=== PATIENT | female | born 1940 | race Caucasian/White ===

== ENCOUNTER 2018-01-15 11:00 | Outpatient (RCR) | payer MEDICARE, BC, MEDICAID, SELFPAY | END 2018-01-15 16:00 | disposition home or self-care (01) | LOC: PT 11:00 | PROVIDERS: Visit Provider Neurological Surgery | DX: M99.83 Other biomechanical lesions of lumbar region (principal); R53.1 Weakness | CPT/HCPCS: 97110; 97164 ==

== ENCOUNTER 2019-03-10 09:00 | Outpatient (RCR) | payer MEDICARE, BC, MEDICAID, SELFPAY | END 2019-03-24 15:57 | disposition home or self-care (01) | LOC: PT.CARL 09:00 | PROVIDERS: Visit Provider Physician Assistant | DX: M70.61 Trochanteric bursitis, right hip (principal) | CPT/HCPCS: 97014; 97033; 97035; 97110; 97140; 97163; G0283 ==

== ENCOUNTER → 2019-08-12 11:43 | Outpatient (CLI) | payer MEDICARE, BC, MEDICAID, SELFPAY ==
[2019-08-12 14:58] LABS: Anion Gap 13.8 mEq/L (5-15); Blood Urea Nitrogen 22 mg/dL (7-18); Carbon Dioxide 29 mmol/L (21.0-32.0); Chloride 102 mmol/L (98-107); Creatinine,Serum 0.91 mg/dL (0.55-1.02); Estimated Glomerular Filt Rate 60 ml/min (>60); GFR (African American) 72 ML/MIN (>60); Glucose 128 mg/dL (74-106); Potassium 3.8 mmoL/L (3.5-5.1); Sodium 141 mmol/L (136-145)
== END ==
PROVIDERS: Visit Provider Family Medicine
DX: R79.9 Abnormal finding of blood chemistry, unspecified (principal)
CPT/HCPCS: 80048

== ENCOUNTER 2021-01-04 11:14 | Outpatient (CLI) | payer MEDICARE, BC, MEDICAID, SELFPAY ==
[2021-01-04] VITALS (7 sets, daily range): BP systolic 145–172; BP diastolic 69–85; PULSE 61–71; RESP 18–24; TEMP 36.6–37.3; O2SAT 92–96
== END 2021-01-04 14:09 | disposition home or self-care (01) ==
PROVIDERS: PCP Nurse Practitioner Family; Visit Provider Nurse Practitioner Family
DX: U07.1 COVID-19 (principal)
CPT/HCPCS: 96365

== ENCOUNTER 2022-04-04 14:00 | Outpatient (RCR) | payer MEDICARE, OTHER, SELFPAY | END 2022-04-24 16:47 | disposition home or self-care (01) | LOC: PT.CARL 14:00 | PROVIDERS: PCP Nurse Practitioner Family; Visit Provider Nurse Practitioner Family | DX: R53.1 Weakness (principal) | CPT/HCPCS: 97110; 97112; 97116; 97163; 97164; 97530 ==

== ENCOUNTER → 2022-05-18 09:41 | Outpatient (CLI) | payer MEDICARE, OTHER, SELFPAY ==
[2022-05-18 14:16] LABS: Anion Gap 13.4 mEq/L (5-15); Blood Urea Nitrogen 48 mg/dl (7-17); Calcium 9.6 mg/dl (8.4-10.2); Carbon Dioxide 26 mmol/L (22.0-30.0); Chloride 104 mmol/L (98-107); Estimated Glomerular Filt Rate 39 ml/min (>60); GFR (African American) 48 ML/MIN (>60); Glucose 128 mg/dl (74-100); Potassium 4.4 mmoL/L (3.5-5.1); Sodium 139 mmol/L (136-145)
[2022-05-18 14:26] LABS: NT Pro Brain Natriuretic Pep. 54.5 pg/mL (0-450)
== END ==
PROVIDERS: PCP Nurse Practitioner Family; Visit Provider Internal Medicine Cardiovascular Disease
DX: I50.22 Chronic systolic (congestive) heart failure (principal)
CPT/HCPCS: 36415; 80048; 83880

== ENCOUNTER 2022-06-07 11:00 | Outpatient (RCR) | payer MEDICARE, OTHER, SELFPAY | END 2022-07-11 06:50 | disposition home or self-care (01) | LOC: PT.CARL 11:00 | PROVIDERS: PCP Nurse Practitioner Family; Visit Provider Nurse Practitioner Family | DX: G45.8 Other transient cerebral ischemic attacks and related syndromes (principal) | CPT/HCPCS: 97110; 97163 ==

== ENCOUNTER 2022-08-16 13:48 | Outpatient (RCR) | payer MEDICARE, OTHER, SELFPAY | END 2022-09-25 11:14 | disposition home or self-care (01) | LOC: PT.CARL 13:48 | PROVIDERS: PCP Nurse Practitioner Family; Visit Provider Nurse Practitioner Family | DX: R68.89 Other general symptoms and signs (principal) | CPT/HCPCS: 97110; 97163 ==

== ENCOUNTER 2023-06-06 13:00 | Outpatient (RCR) | payer MEDICARE, OTHER, SELFPAY | END 2023-07-10 10:24 | disposition home or self-care (01) | LOC: PT 13:00 | PROVIDERS: PCP Nurse Practitioner Family; Visit Provider Nurse Practitioner Family | DX: M54.2 Cervicalgia (principal) | CPT/HCPCS: 97010; 97014; 97035; 97110; 97140; 97163; G0283 ==

== ENCOUNTER 2024-12-08 09:00 | Outpatient (RCR) | payer MEDICARE, OTHER, SELFPAY | END 2024-12-08 23:59 | disposition home or self-care (01) | LOC: PT 09:00 | PROVIDERS: PCP Nurse Practitioner Family; Visit Provider Nurse Practitioner Family | DX: M62.81 Muscle weakness (generalized) (principal) | CPT/HCPCS: 97110; 97163; 97530 ==

== ENCOUNTER 2024-12-31 10:00 | Outpatient (RCR) | payer MEDICARE, OTHER, SELFPAY | END 2024-12-31 23:59 | disposition home or self-care (01) | LOC: PT 10:00 | PROVIDERS: PCP Nurse Practitioner Family; Visit Provider Nurse Practitioner Family | DX: M62.81 Muscle weakness (generalized) (principal) | CPT/HCPCS: 97110; 97112; 97530 ==

== ENCOUNTER 2025-08-05 19:38 | Inpatient (IN) | payer MEDICARE, OTHER, SELFPAY ==
[2025-08-05] VITALS (18 sets, daily range): BP systolic 114–141; BP diastolic 50–65; PULSE 74–96; RESP 16–24; TEMP 36.9; O2SAT 88–95; BMI 31.1; BMI 32.3
--- NOTE | 2025-08-05 16:19 | ECG_ITS ---
APPROVED REPORT Exam: Resting ECG HR:90 bpm ECG Measurements Heart Rate 90 AXES MO 151 P -8 QRSd 102 QRS 7 QT 367 T 43 QTc 415 Conclusion SINUS RHYTHM POSSIBLE ANTERIOR MYOCARDIAL INFARCTION , OF INDETERMINATE AGE [30 ms Q WAVE IN V3/V4, OR R < 0.2 mV IN V4] ABNORMAL ECG Electronically signed by : JUAN C NGUYỄN, 08/06/2025 14:01:08
--- OUTSIDE RECORDS SUMMARY | 2025-08-05 16:20 | XMS_ITS | Clinical Summary ---
Author Organization [employer] ([place], [place], [place], [place], [place]) Address [address] [place] [address] Care Team Providers Care International Tax Manager Name Role Phone Rocio Tavera APRN Primary Care Provider [phone] Rocio Tavera ANKLE PATCH MOLDER Unavailable [phone] Allergies No known active allergies Medications Hospital, Clinic, or Other Facility Administered Medication Ordered Dose Route Frequency Start Date End Date Status acetaminophen (TYLENOL) tablet 500 mgIndications:Neck pain,Cervical paraspinal muscle spasm 500 mg oral Every 6 hours PRN 08/23/2023 Active Social History Tobacco Use Types Packs/Day Years Used Date Smoking Tobacco: Never Smokeless Tobacco: Never Tobacco Cessation:Counseling Given: Not Answered Alcohol Use Standard Drinks/Week Comments Not Currently 0 (1 standard drink = 0.6 oz pur e alcohol) Food Insecurity Answer Date Recorded Food run out past 12 months Not on file 09/10 Food did not last past 12 months Not on file 09/20/2023 Employment Answer Date Recorded Help finding and keeping a job Not on file 0 09/20/2023 Family and Community Support Answer Gokul e Recorded Help with Day to Day Activities Not on file 09/20/2023 Feeling Lonely or Isolated Not on file 09/20 Educational Attainment Answer Date Ernie rded Speak language other than Salvadorean at home Not on file 09/20/2023 Want help with school or training Not on file 09/20/2023 Substance Use Answer Date Recorded Used prescription meds for non-medical reasons N ot on file 09/20/2023 Used illegal drugs past 12 months Not on file 09/20/2023 Comments Unknown Sex and Gender Information Value Date Recorded Sex Assigned at Not on file Legal Sex Female 5:04 PM CDT Gender Identity Not on file Sexual Orientation Not on file Last Filed Vital Signs Vital Sign Reading Time Taken Comments Blood Pressure 148/74 08/23/2023 2:56 AM EST Pulse 68 08/23/2023 2:56 AM EST Temperature 36.7 C (98.1 F) 08/23/2023 2:56 AM EST Respiratory Rate 20 08/23/2023 2:56 AM EST Oxygen Saturation 96% 08/23/2023 2:56 AM EST Inhaled Oxygen Concentration - - Weight 77.1 kg (170 lb) 08/23/2023 2:56 AM EST Height 157.5 cm (5' 2 ) 08/23/2023 2:56 AM EST Body Mass Index 31.09 08/23/2023 2:56 AM EST Plan of Treatment Health Maintenance Due Date Last Done Comments DXA SCAN 1941 Depression Screening (12+) 1953 Pneumococcal 50+ years (1 of 1 - PCV) 1991 Shingles Vaccine (Zoster) (1 of 2) 1991 Respiratory Syncytial Virus (RSV) Adult or (1 - 1-dose 75+ series) 2016 Tobacco Cessation Counseling and Screening (12+) 08/23/2024 08/23/2023 Falls Risk Screening 09/10/2024 COVID-19 VACCINE (2 - 2024- season) 2025 Influenza Vaccine (#1) 2025 DTAP/TDAP/TD VACCINES (3 - Td or Tdap) 04/15/2031, 07/04/2001 Insurance #[address] [facility] ACCESS HMO MAP [facility] FOR LIFE Care Teams International Tax Manager Relationship Specialty Start Date End Date Rocio Tavera APRN PCP - General Family Medicine 11/29/22 Rocio Tavera APRN Referring Physician Family Medicine 11/29/22
--- OUTSIDE RECORDS SUMMARY | 2025-08-05 16:20 | XMS_ITS | Clinical Summary ---
Author Organization [facility] , [facility] Address [address] [place] [address] Phone Care Team Providers Care Mechanical Assembler Name Role Phone Rocio Tavera APRN Unavailable [phone] Valdemar CINTRON, Arsh Hinkle Unavailable [phone] Cruz Casiano D.O. Primary Care Provider [phone] Reason for Visit and Chief Complaint BRACE FITTING Problems Includes: Problems addressed during this encounter and other active Problems All Visits Onset Date Resolved Date Provider Condition S tatus Neck Pain 10/02/2023 Flaquito Lala Active Last Documented On 4 1:20PM ; [facility] Soft Tissue Pain Lower Leg Right 06/11/2020 Varun in Manan Aldrich MD Active Last Documented On 0 10:28AM ; [facility], [facility] Plan of Treatment No Plan of Treatment Recorded Assessments Includes: Assessments from this encounter No Assessments Recorded Medical Equipment - Implanted Devices Includes: Current Devices No Medical Equipment Recorded Medications Includes: Medications discussed during this encounter and other current Medications Current Medications (continue as prescribed) Gabapentin 300 MG Oral Capsule 09/07/2023 Provider: Rocio Tavera APRN Diagnosis: Last Documented On 4 1:20PM By Onur Rick ; [facility], [facility] methylPREDNISolone 4 MG Oral Tablet Therapy Pack 09/07/2023 Provider: Rocio Tavera APRN Diagnosis: Last Documented On 4 1:20PM By Onur Rick ; [facility], [facility] Cyclobenzaprine HCl 5 MG Oral Tablet 08/25/2023 Prov ider: Neda Broderick Diagnosis: Last Documented On 4 1:20PM By Onur Rick ; [facility] predniSONE 10 MG (21) Oral Tablet Therapy Pack 023 Provider: Neda Broderick Diagnosis: Last Documented On 4 1:20PM By Onur Rick ; [facility] diazePAM 2 MG Oral Tablet 08/23/2023 Provider: HAVEN SALGADO MD Diagnosis: Last Documented On 4 1:20PM By Onur Rick ; [facility], [facility] Medications Administered Includes: Administered Medications from this encounter No Administered Medications Recorded Results Includes: Results discussed during this encounter No Results Recorded For Specified Dates History of Present Illness Includes: History of Present Illness from this encounter No History of Present Illness Recorded Social History No Social History Recorded - Smoking Status Unknown Medical History Includes: Medical History addressed during this encounter No Medical History Recorded Family History Includes: Family History addressed during this encounter No Family History Recorded Review of Systems Includes: Review of Systems from this encounter No Review of Systems Recorded Mental Status Includes: Mental Status from this encounter No Mental Status Recorded Functional Status Includes: Functional Status from this encounter No Functional Status Recorded Physical Exam Includes: Physical Exam from this encounter No Physical Exam Recorded Allergies Includes: Active Allergies No Known Allergies Encounters Encounter Provider Location Date Check-In Time Check-Out Time Diagnosis BRACE FITTING Flaquito MORAN 4 2:33PM 11:59PM Insurance Includes: Active Insurance Policies Plan Name Member ID Group # Subscriber Relationship Effect dann Dates 1 - BCBS ([place]) Medicare [id number] Nanette Jorge Self 2 - FOR LIFE [id number] Nanette Jorge Self Clinical Notes Includes: Clinical Notes from this encounter No Clinical Notes Recorded
--- OUTSIDE RECORDS SUMMARY | 2025-08-05 16:20 | XMS_ITS | Clinical Summary ---
Author Organization [facility] , [facility] Address [address] [place] [address] Phone Care Team Providers Care Window Glass Installer Name Role Phone Tavera NEEDLE CONTROL CHENILLERRocio Gomez Unavailable [phone] Valdemar CINTRON, Arsh Hinkle Unavailable [phone] Cruz Casiano D.O. Primary Care Provider [phone] Reason for Referral Date Encounter Description Provider Reason for Referral 06/11/20 SECOND OPINION Arsh Aldrich MD Re ferral To Physician Reason for Visit and Chief Complaint SECOND OPINION Problems Includes: Problems addressed during this encounter and other active Problems Current Visit Onset Date Resolved Date Provider Conditio n Status Soft Tissue Pain Lower Leg Right 06/11/2020 Arsh Aldrich MD Active Last Documented On 0 10:28AM ; [facility] Past Visits Onset Date Resolved Date Provider Condition Status Neck Pain 10/02/2023 Flaquito Lala Active Last Documented On 4 1:20PM ; [facility] Plan of Treatment Physical exam: skin intact throughout the leg with minimal swelling compared to her contralateral side she does have specific point tenderness or cut along the anterior medial aspect of the distal tibia She has some significant pain with motion of the ankle especially dorsiflexion range of motion is from 5? of dorsiflexion and 15? of plantar flexion Ligamentously stable throughout range of motion Patient has 5 out of 5 motor strength in tib ant and gastroc sensory is intact to SPN TPN and tibial nerves a 2+ dorsalis pedis pulse No signs of DVT - Last Documented On 06/15/2020 8:37AM ; [facility], [facility] Assessments Includes: Assessments from this encounter Findings 80-year-old female with severe left ankle pain recommended MRI to rule out any soft tissue issues that could be causing her pain if this is negative would recommend a vascular workup with her history of stroke in the significant swelling that she reports I do not see anything any kind of fracture is evident on x-ray and her ultrasound was negative for blood clot. We will call her with results of the MRI and discuss possible referral to vascular for evaluation - Last Documented On 06/15/2020 8:37AM ; [facility], [facility] Medical Equipment - Implanted Devices Includes: Current Devices No Medical Equipment Recorded Medications Includes: Medications discussed during this encounter and other current Medications Current Medications (continue as prescribed) Gabapentin 300 MG Oral Capsule 09/07/2023 Provider: Rocio Tavera APRN Diagnosis: Last Documented On 4 1:20PM By Onur Rick ; [facility], [facility] methylPREDNISolone 4 MG Oral Tablet Therapy Pack 09/07/2023 Provider: Rocio Tavera APRN Diagnosis: Last Documented On 4 1:20PM By Onur Rick ; [facility], [facility] Cyclobenzaprine HCl 5 MG Oral Tablet 08/25/2023 Prov ider: Neda Broderick Diagnosis: Last Documented On 4 1:20PM By Onur Rick ; [facility] predniSONE 10 MG (21) Oral Tablet Therapy Pack 023 Provider: Neda Broderick Diagnosis: Last Documented On 4 1:20PM By Onur Rick ; [facility] diazePAM 2 MG Oral Tablet 08/23/2023 Provider: HAVEN SALGADO MD Diagnosis: Last Documented On 4 1:20PM By Onur Rick ; [facility], [facility] Past Medications on file Meloxicam 15 MG Oral Tablet 06/21/2020 - 09/19/2020 Pr ovider: Arsh Aldrich MD Diagnosis: Take 1/2 - 1 tablet daily Last Documented On 0 9:11AM By Kimberly Myrick ; [facility], [facility] Medications Administered Includes: Administered Medications from this encounter No Administered Medications Recorded Results Includes: Results discussed during this encounter No Results Recorded For Specified Dates History of Present Illness Includes: History of Present Illness from this encounter HPI Nanette Paula is a 80 year old female. - Allergy list reviewed - Problem list reviewed - Medication list reviewed 80-year-old female here today for my initial evaluation of right lower extremity pain and swelling patient reports about 4 weeks of worsening left foot and ankle pain and swelling limited motion around the ankle she has been seen in the emergency room where she had an ultrasound and x-rays that did not reveal any significant pathology no blood clot she reports pain today her foot is very swollen and painful and difficult to move she does have a history of stroke and hypertension type II diabetic pain has become severe she is limited with weightbearing and has difficulty walking she does have history of spine surgery but reports that this pain releases from the foot down her ankle down no pain running down her whole leg she is a history of bilateral total knee replacements are functioning well for her she is not smoke no known drug allergies Social History Description Last Updated Non-smoker 06/11/2020 Last Documented On 0 8:37AM ; [facility] No caffeine use 06/11/2020 Last Documented On 0 8:37AM ; [facility] No recent change in diet 06/11/2020 Last Documented On 0 8:37AM ; [facility] Not a current smoker. 06/11/2020 Last Documented On 0 8:37AM ; [facility] Not exercising regularly 06/11/2020 Last Documented On 0 8:37AM ; [facility] Not using alcohol 06/11/2020 Last Documented On 0 8:37AM ; [facility] Not using drugs 06/11/2020 Last Documented On 0 8:37AM ; [facility] Smoking Status Unknown Procedures and Surgical History Includes: Procedures from this encounter Procedures Code Diagnosis Performing Provider Service L ocation Service Date use of tobacco assessment performed 1000F Last Documented On 0 10:46AM ; [facility] referral to physician Last Documented On 0 10:46AM ; [facility] Pt received screening for fall risk [id number] Last Documented On 0 10:46AM ; [facility] Medical History Includes: Medical History addressed during this encounter Description Last Updated Arthritis 06/11/2020 Last Documented On 0 8:37AM ; [facility] History of diabetes mellitus 06/11/2020 Last Documented On 0 8:37AM ; [facility] History of Heart Attack / Stroke 020 Last Documented On 0 8:37AM ; [facility] No recent immunization for flu 0 Last Documented On 0 8:37AM ; [facility] No recent immunization for pneumococcal pneumonia 06/11/2020 Last Documented On 0 8:37AM ; [facility] Family History Includes: Family History addressed during this encounter Description Last Updated No significant family history 06/11/2020 Last Documented On 0 8:37AM ; [facility] Review of Systems Includes: Review of Systems from this encounter Systemic: Not feeling tired (fatigue), no recent weight loss, and no recent weight gain. Head: No headache and no sinus pain. Eyes: No vision problems, no Cataracts, no Glasses/Contacts, and no Glaucoma. Otolaryngeal: No hearing loss and no tinnitus. Cardiovascular: No chest pain or discomfort, no palpitations, no Hypertension, and no High Cholesterol. Pulmonary: No daytime asthma symptoms and no chronic cough. No wheezing. Gastrointestinal: No heartburn and no abdominal pain. No Indigestion, no Acid Reflux, no Peptic Ulcer, no GI Stomach Bleed, and no Ulcers. Endocrine: No hot flashes, no muscle weakness, no Diabetes, no Hypothyroid, and no Hyperthyroid. Hematologic: No easy bleeding, no tendency for easy bruising, and no Anemia. Musculoskeletal: No Arthritis and no lower back pain. No soft tissue swelling and no localized joint pain. Neurological: No dizziness, no convulsions, and no numbness. Psychological: No anxiety, no emotional lability, no depression, and no insomnia. Not crying for no reason. Skin: No dry skin. No Ulcers, no Scars, and no rash. Allergic and Immunologic: No complaint of seasonal allergic reaction. Mental Status Includes: Mental Status from this encounter Description No anxiety Functional Status Includes: Functional Status from this encounter No Functional Status Recorded Physical Exam Includes: Physical Exam from this encounter No Physical Exam Recorded Allergies Includes: Active Allergies No Known Allergies Encounters Encounter Provider Location Date Check-In Time Check-Out Time Diagnosis SECOND OPINION Arsh Aldrich MD [facility] 06/11/20 20 10:34AM 11:35AM Insurance Includes: Active Insurance Policies Plan Name Member ID Group # Subscriber Relationship Effect dann Dates 1 - BCBS [place] Medicare [id number] Nanette Figueroa 2 - FOR LIFE [id number] Nanette Figueroa Clinical Notes Includes: Clinical Notes from this encounter No Clinical Notes Recorded
--- OUTSIDE RECORDS SUMMARY | 2025-08-05 16:20 | XMS_ITS | Data Portability ---
Author Organization [employer] [employer] [facility] Address [address] [place] [address] Assessment Encounter Date Assessment Date Assessment LastModified by Organization Details LastModified Time 04/22/2025 04/22/2025 Patient presente d to office today for their Medicare Annual Wellness Visit. Education was provided on healthy nutrition, including a diet rich in fruits and vegetables, minimizing simple carbohydrates, salt, and saturated fats. Encouraged regular cardiovascular exercise such as walking at least 30 minutes daily, 5 times per week. Emphasized preventive health measures and educated pt on fall prevention and community-based lifestyle interventions to help reduce health risks and promote healthy living. Not available 04/22/2025 12:06:04 05/22/2025 05/22/2025 Patient presents with symptoms of UTI. Results of dipstick were negative for UTI. Advised to drink clear fluids, Tylenol for pain and take prescribed medications as instructed. Patient encouraged to follow up within 1 week if not improving. Elderly female with chronic cervical degeneration, diabetes mellitus, and history of adverse reactions to gabapentin, presenting for follow-up after recent gabapentin-relate d adverse event. Adverse Reaction to Gabapentin Assessment: Patient reports taking gabapentin once recently for chronic neck pain, which was followed by an episode of generalized shaking, thick tongue, difficulty speaking, and weakness lasting about 10 minutes at 3 AM. For the past two days, she has experienced weakness and fatigue. These symptoms are consistent with her previous adverse reactions to gabapentin. Today, the patient reports feeling normal. Plan: - Discontinue gabapentin - Educate patient on avoiding gabapentin use due to adverse reactions - Consider alternative pain management strategies for chronic cervical degeneration Suspected Urinary Tract Infection Assessment: Patient denies urinary symptoms. Urinalysis shows a tiny trace of bacteria, but the sample is clear. This is likely due to contamination during collection rather than a true UTI. Plan: - Send urine sample for culture to confirm absence of UTI - Await culture results before considering treatment Chronic Cervical Degeneration Assessment: Patient reports that neck pain has rarely been bothering her recently. However, she took gabapentin once for severe pain, leading to adverse reactions. Limited treatment options remain for this condition. Plan: - Reassess pain management options at next visit - Avoid use of gabapentin due to adverse reactions Diabetes Mellitus Assessment: Patient reports checking blood glucose daily. This morning's reading was 146, which is improved from previous readings. Plan: - Continue current diabetes management - Encourage regular blood glucose monitoring Not available 05/22/2025 12:11:58 07/22/2025 07/22/2025 Nanette Jorge presented with her sone with WC for routine follow-up. She has diabetes with improved glucose control (A1c decreased from 10.0% to 8.3%), heart failure with worsening edema, chronic neck pain, and recurrent urinary yeast infections. Her plan includes resuming low dose Inspra for fluid retention, continuing gabapentin for pain, maintaining weekly fluconazole for yeast infections, and transferring prescriptions to a local pharmacy. Not available 07/22/2025 14:19:48 Plan of Treatment Reminders Order Date Submit Date Provider Last Modified By Organization Details Last Modified Time Details Appointments None recorded. Lab HbA1c (hemoglobin A1c), blood [address], [address], 5 09:15:51 urinalysis, dipstick [address], [address], 5 10:58:34 culture, urine 2024 025 [employer] [facility] [facility], [address] [place] [address], [place], [address], 5 08:14:54 magnesium, serum or plasma 2024 025 [employer] [facility] ([place]), [address] [place], [address], 5 04:07:02 cobalamin and folate panel, serum [address] [facility] ([place]), [address] [place], [address], 5 04:07:02 CBC w/ auto diff 2024 025 [employer] [facility] [address] [place], [address], 5 04:07:01 BMP, serum or plasma [address] [facility] ([place]), [address] [place], [address], 5 04:07:01 HbA1c (hemoglobin A1c), blood [address], [address], 5 11:51:29 urinalysis, dipstick [address], [address], 5 11:40:30 HbA1c (hemoglobin A1c), blood [address] [facility] ([place]), [address] [place], [address], 5 07:12:14 CMP, serum or plasma [address] [facility] ([place]), [address] [place], [address], 5 07:12:13 CBC w/ auto diff 2024 025 [facility]), [address] [place], [address], 5 07:12:12 magnesium, serum or plasma 2024 025 [facility]), [address] [place], [address], 5 07:12:15 TSH, ultra-sensi tive, serum 2024 025 [facility]), [address] [place], [address], 5 07:12:14 Referral None recorded. Procedures None recorded. Surgeries None recorded. Imaging None recorded. Medication Orders Inspra 25 mg tablet 2024 025 [facility], [address] [place] [address], [address], 16:11:34 fluconazole 150 mg tablet 2024 025 [facility], [address] [place] [address], [address], 16:11:33 fluconazole 150 mg tablet 2024 025 [facility], [address] [place] [address], [address], 17:28:21 Patient TargetsNo targets recorded. Patient Instructions Encounter Date Encounter Id Patient Instructions Last Modified By Organization Details Last Modified Time 04/22/2025 [id number] advance care planning: care instructions Not available 04/22/2025 11:39:47 Discussed and explained advance directives such as standard forms to the patient and caregiver. Face to face discussion lasted for a duration of __5_ minutes. Not available 04/22/2025 11:51:52 Reason for Referral None Reported. Results Created Date Observation Date Name Description Value Unit Range Abnormal Flag Note LastModifiedBy Organization Detail LastModifiedTime 01/21/2001/21/2025 CBC WITH DIFFE RENTI AL/PL ATELE T WBC 6.5 x10e3 /uL 3.4-10 .8 normal Not Available [facility]) [address] [place], [address], 01/21/2025 07:12:12 01/21/2001/21/2025 CBC WITH DIFFE RENTI AL/PL ATELE T RBC 4.27 x10e6 /uL 3.77-5 .28 normal Not Available [facility] ([facility]) [address] [place], [address], 01/21/2025 07:12:12 01/21/2001/21/2025 CBC WITH DIFFE RENTI AL/PL ATELE T hemoglobin 11.6 g/dL 11.1-1 5.9 normal Not Available [facility] ([facility]) [address] [place], [address], 01/21/2025 07:12:12 01/21/2001/21/2025 CBC WITH DIFFE RENTI AL/PL ATELE T hematocrit 37.5 % 34.0-4 6.6 normal Not Available [facility] ([facility]) [address] [place], [address], 01/21/2025 07:12:12 01/21/2001/21/2025 CBC WITH DIFFE RENTI AL/PL ATELE T MCV 88 fL 79-97 normal Not Available [facility] ([facility]) [address] [place], [address], 01/21/2025 07:12:12 01/21/2001/21/2025 CBC WITH DIFFE RENTI AL/PL ATELE T MCH 27.2 pg 26.6-3 3.0 normal Not Available [facility] ([facility]) [address] [place], [address], 01/21/2025 07:12:12 01/21/2001/21/2025 CBC WITH DIFFE RENTI AL/PL ATELE T MCHC 30.9 g/dL 31.5-3 5.7 below low normal Not Available [facility] ([facility]) [address] [place], [address], 01/21/2025 07:12:12 01/21/2001/21/2025 CBC WITH DIFFE RENTI AL/PL ATELE T RDW 14.9 % 11.7-1 5.4 Not Available [facility] ([facility]) [address] [facility], [place], [address], 01/21/2025 07:12:12 01/21/2001/21/2025 CBC WITH DIFFE RENTI AL/PL ATELE T platelets 260 x10e3 /uL 150-45 0 normal Not Available [facility] ([facility]) [address] [facility], [place], [address], 01/21/2025 07:12:12 01/21/2001/21/2025 CBC WITH DIFFE RENTI AL/PL ATELE T neutrophils 58 % not estab. normal Not Available [facility] ([facility]) [address] [facility], [place], [address], 01/21/2025 07:12:12 01/21/2001/21/2025 CBC WITH DIFFE RENTI AL/PL ATELE T lymphs 34 % not estab. normal Not Available [facility] ([facility]) [address] [place], [address], 01/21/2025 07:12:12 01/21/2001/21/2025 CBC WITH DIFFE RENTI AL/PL ATELE T monocytes 7 % not estab. normal Not Available [facility] ([facility]) [address] [place], [address], 01/21/2025 07:12:12 01/21/20 25 01/21/2025 CBC WITH DIFFE RENTI AL/PL ATELE T eos 1 % not estab. normal Not Available [facility] ([facility]) [address] [place], [address], 01/21/2025 07:12:12 01/21/2001/21/2025 CBC WITH DIFFE RENTI AL/PL ATELE T basos 0 % not estab. normal Not Available [facility] ([facility]) [address] [facility], [place], [address], 01/21/2025 07:12:12 01/21/2001/21/2025 CBC WITH DIFFE RENTI AL/PL ATELE T immature cells RECREATION THERAPY DIRECTOR Not Available [facility]) [address] [place], [address], 01/21/2025 07:12:12 01/21/2001/21/2025 CBC WITH DIFFE RENTI AL/PL ATELE T neutrophils (absolute) 3.8 x10e3 /uL 1.4-7. 0 normal Not Available [facility] ([facility]) [address] [place], [address], 01/21/2025 07:12:12 01/21/2001/21/2025 CBC WITH DIFFE RENTI AL/PL ATELE T lymphs (absolute) 2.2 x10e3 /uL 0.7-3. 1 normal Not Available [facility] ([facility]) [address] [place], [address], 01/21/2025 07:12:12 01/21/2001/21/2025 CBC WITH DIFFE RENTI AL/PL ATELE T monocytes(ab solute) 0.4 x10e3 /uL 0.1-0. 9 normal Not Available [facility] ([facility]) [address] [place], [address], 01/21/2025 07:12:12 01/21/20 25 01/21/2025 CBC WITH DIFFE RENTI AL/PL ATELE T eos (absolute) 0.1 x10e3 /uL 0.0-0. 4 normal Not Available [facility] ([facility]) [address] [facility], [place], [address], 01/21/2025 07:12:12 01/21/20 25 01/21/2025 CBC WITH DIFFE RENTI AL/PL ATELE T baso (absolute) 0.0 x10e3 /uL 0.0-0. 2 normal Not Available [facility] ([facility]) [address] [facility], [place], [address], 01/21/2025 07:12:12 01/21/2001/21/2025 CBC WITH DIFFE RENTI AL/PL ATELE T immature granulocytes 0 % not estab. Not Available [facility] ([facility]) [address] [facility], [place], [address], 01/21/2025 07:12:12 01/21/2001/21/2025 CBC WITH DIFFE RENTI AL/PL ATELE T immature grans (abs) 0.0 x10e3 /uL 0.0-0. 1 Not Available [facility] ([facility]) [address] [facility], [place], [address], 01/21/2025 07:12:12 01/21/2001/21/2025 CBC WITH DIFFE RENTI AL/PL ATELE T NRBC RECREATION THERAPY DIRECTOR Not Available [facility] ([facility]) [address] [facility], [place], [address], 01/21/2025 07:12:12 01/21/2001/21/2025 CBC WITH DIFFE RENTI AL/PL ATELE T hematology comments: RECREATION THERAPY DIRECTOR Not Available [facility] ([facility]) [address] [facility], [place], [address], 01/21/2025 07:12:12 01/21/20 25 01/21/2025 COMP. METAB OLIC PANEL (14) glucose 250 mg/dL 70-99 above high normal Not Available [facility] ([facility]) [address] [place], [address], 01/21/2025 07:12:13 01/21/20 25 01/21/2025 COMP. METAB OLIC PANEL (14) BUN 31 mg/dL 8-27 above high normal Not Available [facility] ([facility]) [address] [place], [address], 01/21/2025 07:12:13 01/21/20 25 01/21/2025 COMP. METAB OLIC PANEL (14) creatinine 1.37 mg/dL 0.57-1 .00 above high normal Not Available [facility] ([facility]) [address] [place], [address], 01/21/2025 07:12:13 01/21/20 25 01/21/2025 COMP. METAB OLIC PANEL (14) eGFR 38 mL/mi n/1.7 3 >59 below low normal Not Available [facility] ([facility]) [address] [place], [address], 01/21/2025 07:12:13 01/21/20 25 01/21/2025 COMP. METAB OLIC PANEL (14) BUN/creatini ne ratio 23 12-28 normal Not Available [facility]) [address] [place], [address], 01/21/2025 07:12:13 01/21/20 25 01/21/2025 COMP. METAB OLIC PANEL (14) sodium 143 mmol/ L 134-14 4 normal Not Available [facility] ([facility]) [address] [place], [address], 01/21/2025 07:12:13 01/21/20 25 01/21/2025 COMP. METAB OLIC PANEL (14) potassium 4.3 mmol/ L 3.5-5. 2 normal Not Available [facility] ([facility]) [address] [facility] [place], [address], 01/21/2025 07:12:13 01/21/20 25 01/21/2025 COMP. METAB OLIC PANEL (14) chloride 106 mmol/ L 96-106 normal Not Available [facility] ([facility]) [address] [facility] [place], [address], 01/21/2025 07:12:13 01/21/20 25 01/21/2025 COMP. METAB OLIC PANEL (14) carbon dioxide, total 20 mmol/ L 20-29 normal Not Available [facility] ([facility]) [address] [facility] [place], [address], 01/21/2025 07:12:13 01/21/20 25 01/21/2025 COMP. METAB OLIC PANEL (14) calcium 9.4 mg/dL 8.7-10 .3 normal Not Available [facility] ([facility]) [address] [facility] [place], [address], 01/21/2025 07:12:13 01/21/20 25 01/21/2025 COMP. METAB OLIC PANEL (14) protein, total 7.4 g/dL 6.0-8. 5 normal Not Available [facility] ([facility]) [address] [facility] [place], [address], 01/21/2025 07:12:13 01/21/20 25 01/21/2025 COMP. METAB OLIC PANEL (14) albumin 3.9 g/dL 3.7-4. 7 normal Not Available [facility] ([facility]) [address] [facility] [place], [address], 01/21/2025 07:12:13 01/21/20 25 01/21/2025 COMP. METAB OLIC PANEL (14) globulin, total 3.5 g/dL 1.5-4. 5 Not Available [facility] ([facility]) [address] [facility] [place], [address], 01/21/2025 07:12:13 01/21/20 25 01/21/2025 COMP. METAB OLIC PANEL (14) bilirubin, total 0.4 mg/dL 0.0-1. 2 normal Not Available [facility] ([facility]) [address] [facility] [place], [address], 01/21/2025 07:12:13 01/21/20 25 01/21/2025 COMP. METAB OLIC PANEL (14) alkaline phosphatase 157 IU/L 44-121 above high normal Not Available [facility] ([facility]) [address] [facility], [place], [address], 01/21/2025 07:12:13 01/21/20 25 01/21/2025 COMP. METAB OLIC PANEL (14) AST (SGOT) 12 IU/L 0-40 normal Not Available [facility] ([facility]) [address] [facility] [place], [address], 01/21/2025 07:12:13 01/21/20 25 01/21/2025 COMP. METAB OLIC PANEL (14) ALT (SGPT) 11 IU/L 0-32 normal Not Available [facility] ([facility]) [address] [place], [address], 01/21/2025 07:12:13 01/21/20 25 01/21/2025 HEMOG LOBIN A1C hemoglobin A1C 12.0 % 4.8-5. 6 above high normal Predi abete s: 5.7 - 6.4 Diabe lakesha: >6.4 Glyce bridget contr ol for adult s with diabe lakesha: <7.0 Not Available [facility] ([facility]) [address] [place], [address], 01/21/2025 07:12:14 01/21/20 25 01/21/2025 TSH RFX ON ABNOR MAL TO FREE T4 TSH 4.320 uIU/m L 0.450- 4.500 normal Not Available [facility] ([facility]) [address] [facility], [place], [address], 01/21/2025 07:12:14 01/21/20 25 01/21/2025 MAGNE SIUM magnesium 1.9 mg/dL 1.6-2. 3 normal Not Available [facility] ([facility]) [address] [facility], [place], [address], 01/21/2025 07:12:15 04/22/20 25 04/22/2025 HbA1c (hemo globi n A1c), blood HbA1c 10.1 Not Available [address], [address], 04/22/2025 11:36:36 04/22/20 25 04/22/2025 urina lysis , dipst ick Leukocytes Trace Not Available [address], [address], 04/22/2025 11:36:49 04/22/20 25 04/22/2025 urina lysis , dipst ick Nitrite negati ve Not Available [address], [address], 04/22/2025 11:36:49 04/22/20 25 04/22/2025 urina lysis , dipst ick Urobilinogen .2 Not Available [address], [address], 04/22/2025 11:36:49 04/22/20 25 04/22/2025 urina lysis , dipst ick Protein 100 Not Available [address], [address], 04/22/2025 11:36:49 04/22/20 25 04/22/2025 urina lysis , dipst ick pH 6.0 Not Available [address], [address], 04/22/2025 11:36:49 04/22/20 25 04/22/2025 urina lysis , dipst ick Blood Non-He molyze d: Modera te Not Available [address], [address], 04/22/2025 11:36:49 04/22/2004/22/2025 urina lysis , dipst ick Specific B[place] 1.015 Not Available [address], [address], 04/22/2025 11:36:49 04/22/20 25 04/22/2025 urina lysis , dipst ick Ketone Negati ve Not Available [address], [address], 04/22/2025 11:36:49 04/22/20 25 04/22/2025 urina lysis , dipst ick Bilirubin Negati ve Not Available [address], [address], 04/22/2025 11:36:49 04/22/20 25 04/22/2025 urina lysis , dipst ick Glucose Negati ve Not Available [address], [address], 04/22/2025 11:36:49 04/22/20 25 04/22/2025 urina lysis , dipst ick Appearance Clear Not Available [address], [address], 04/22/2025 11:36:49 04/22/20 25 04/22/2025 urina lysis , dipst ick Color Yellow Not Available [address], [place], [address], 04/22/2025 11:36:49 05/22/20 25 05/26/2025 URINE CULTU RE, ROUTI NE urine culture, routine Final report abnormal Not Available [facility] ([facility]) [address] [facility], [place], [address], 05/26/2025 08:14:54 05/22/2005/26/2025 URINE CULTU RE, ROUTI NE result 1 Klebsi krys pneumo niae abnormal Cefaz vadim with an BRIDGET <=16 predi cts susce ptibi lity to the oral agent s cefac yfn, cefdi ivan, cefpo doxim e, cefpr ozil, cefur oxime , cepha lexin , and lorac arbef when used for thera py of uncom plica brenda urina ry tract infec tions due to E. coli, Klebs iella pneum oniae , and Prote us mirab ilis. Great er than 100,0 00 colon y formi ng units per mL Not Available [facility] ([facility]) [address] [facility], [place], [address], 05/26/2025 08:14:54 05/22/2005/26/2025 URINE CULTU RE, ROUTI NE antimicrobia l susceptibili ty Commen t S = Susce ptibl e; I = Inter media te; R = Resis tant P = Posit dann; N = Negat dann MICS are expre ssed in micro grams per mL Antib iotic RSLT# 1 RSLT# 2 RSLT# 3 RSLT# 4 Amoxi cilli n/Cla vulan ic Acid I Ampic illin R Cefaz vadim S Cefep akhil S Cefox itin S Cefpo doxim e S Ceftr iaxon e S Cipro floxa drew S Ertap enem S Genta micin S Levof loxac in S Merop enem S Nitro furan toin R Piper acill in/Ta zobac denney S Tetra cycli ne S Tobra mycin S Trime thopr im/Jay lfa S Not Available [facility] ([facility]) [address] [facility], [place], [address], 05/26/2025 08:14:54 05/22/2005/22/2025 urina lysis , dipst ick Leukocytes Small Not Available [address], [address], 05/22/2025 10:38:12 05/22/20 25 05/22/2025 urina lysis , dipst ick Nitrite negati ve Not Available [address], [address], 05/22/2025 10:38:12 05/22/20 25 05/22/2025 urina lysis , dipst ick Urobilinogen .2 Not Available [address], [address], 05/22/2025 10:38:12 05/22/20 25 05/22/2025 urina lysis , dipst ick Protein 100 Not Available [address], [address], 05/22/2025 10:38:12 05/22/20 25 05/22/2025 urina lysis , dipst ick pH 6.0 Not Available [address], [address], 05/22/2025 10:38:12 05/22/20 25 05/22/2025 urina lysis , dipst ick Blood Modera te Not Available [address], [address], 05/22/2025 10:38:12 05/22/2005/22/2025 urina lysis , dipst ick Specific B[place] 1.020 Not Available [address], [address], 05/22/2025 10:38:12 05/22/2005/22/2025 urina lysis , dipst ick Ketone Negati ve Not Available [address], [address], 05/22/2025 10:38:12 05/22/2005/22/2025 urina lysis , dipst ick Bilirubin Negati ve Not Available [address], [address], 05/22/2025 10:38:12 05/22/2005/22/2025 urina lysis , dipst ick Glucose Negati ve Not Available [address], [address], 05/22/2025 10:38:12 05/22/2005/22/2025 urina lysis , dipst ick Appearance Clear Not Available [address], [address], 05/22/2025 10:38:12 05/22/2005/22/2025 urina lysis , dipst ick Color Dark Yellow Not Available [address], [address], 05/22/2025 10:38:12 07/22/20 25 07/22/2025 HbA1c (hemo globi n A1c), blood HbA1c 8.3 Not Available [address], [address], 07/22/2025 09:12:27 Result Notes None recorded. Problems Name Problem SNOMED Code Status Onset Date Resolution Date Notes Provider Name and Address Organization Details Recorded Time Stomatit is 98415093 Completed 202002/03/2021 Problem Code: K12.1; Problem Code Type: ICD-10; Not Available [facility] 22:47:09 COVID-19 [id number] Completed 202010/06/2021 Problem Code: U07.1; Problem Code Type: ICD-10; Not Available [facility] 22:47:10 Hypothyr oidism 53510847 Active 2020 Not Available [facility] 22:47:08 Hyperten sive disorder 43173949 Active 2020 Problem Code: I10; Problem Code Type: ICD-10; Not Available [facility] 22:47:09 Body mass index 30+ - obesity 612229740 Active 2020 Problem Code: Z68.31; Problem Code Type: ICD-10; Not Available [facility] 22:47:11 Localize d edema 623070852 Completed 202010/06/2021 Problem Code: R60.0; Problem Code Type: ICD-10; Rocio Tavera APRN [address] [place] [address], [address] , [facility] [employer] [facility]. 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/06/2021 Problem Code: D37.02; Problem Code Type: ICD-10; Not Available [facility] 22:47:08 Acute stress disorder 13785041 Completed 202010/06/2021 Problem Code: F43.0; Problem Code Type: ICD-10; Not Available [facility] 22:47:09 Moderate major depressi on, single episode 97138358 Completed 202010/06/2021 Problem Code: F32.1; Problem Code Type: ICD-10; Not Available [facility] 22:47:09 Moderate recurren t major depressi on 11419713 Active 2020 Problem Code: F33.1; Problem Code Type: ICD-10; Not Available [facility] 2 22:47:09 Transien t cerebral ischemia 957169978 Active 2020 Not Available [facility] 2 22:47:09 Dysuria 29364425 Completed 202010/06/2021 Problem Code: R30.0; Problem Code Type: ICD-10; Rocio Tavera APRN [address] [place] [address], [address] , [employer] 5 08:47:53 Dizzines s and giddines s 090547193 Completed 202010/06/2021 Problem Code: R42; Problem Code Type: ICD-10; Not Available [facility] 2 22:47:10 Restless legs syndrome 15350955 Active 2021 Problem Code: G25.81; Problem Code Type: ICD-10; Not Available [facility] 22:47:09 Chronic systolic heart failure 537598613 Active 2021 Not Available [facility] 2 22:47:11 Dysuria 28005577 Completed 202106/02/2022 Problem Code: R30.0; Problem Code Type: ICD-10; Rocio Tavera APRN [address] [place] [address], [address] , [employer] 5 08:47:53 Neck pain 06051884 Active 2022 Neda Broderick PA-C [address] [place] [address], [address] , [employer] 3 12:35:00 Chronic kidney disease stage 4 253322989 Active 2023 Rocio Tavera APRN [address] [place] [address], [address] , [employer] 4 11:44:09 Type 2 diabetes mellitus 54756954 Active 2024 Rocio Tavera APRN [address] [place], [address] , [employer] 5 09:14:40 Problem Notes None recorded. Procedures Surgical History Date Name Laterality Status Provider Name and Address Organization Details Recorded Time 12/27/19 23 Suture/Staple removal completed Rocio Tavera APRN [address] [place], [address], [employer] 12/26/2022 10:56:41 10/27/19 11 Most Recent Mammogram completed Ailyn Dallas [employer] 10/18/2022 12:48:52 Joint Replacement completed [employer] 05/26/2022 11:54:33 Back Surgery completed [employer] 05/26/2022 11:54:45 Hysterectomy completed [employer] 05/26/2022 11:55:00 Imaging Results None recorded. Procedure Notes None recorded. Medical Equipment None Reported. Allergies No known drug allergies Medications Name Sig Start Date Stop Date Status Note LastModified by Organization Details LastModified Time losartan 50 mg tablet 1 po bid 05/27 completed Not Available Not Available Not Available amoxicillin 500 mg capsule TAKE 1 CAPSULE BY MOUTH 3 TIMES DAILY 04/22 completed Not Available Not Available Not Available metformin 500 mg tablet TAKE 1 TABLET DAILY WITH FOOD 2023 active Not Available Not Available Not Avai lable carvedilol 6.25 mg tablet TAKE 1 TABLET TWICE A DAY WITH FOOD 2023 active Not Available Not Available Not Avai lable doxycycline hyclate 100 mg capsule take 1 capsule (100 mg) by oral route 2 times per day 01/30 completed Not Available Not Available Not Available bumetanide 2 mg tablet take 1 tablet (2 mg) by oral route once daily for 3 days for swelling 04/05 completed Not Available Not Available Not Available trazodone 50 mg tablet 10/20 completed Not Available Not Available Not Available azithromyci n 250 mg tablet TAKE 2 TABLETS BY MOUTH ON DAY 1, THEN TAKE 1 TABLET DAILY ON DAYS 2-5 10/10 completed Not Available Not Available Not Available cetirizine 5 mg tablet Take 1 tablet every day by oral route, for itching. 10/07 completed Not Available Not Available Not Available Lidocaine Viscous 2 % mucosal solution take 15 millilite rs and swish and spit out by oral route every 3 hours 01/24 completed Not Available Not Available Not Available fluconazole 150 mg tablet TAKE 1 TABLET BY MOUTH EVERY WEEK NEEDED FOR 1 DAY FOR YEAST active Not Available Not Available No t Available meloxicam 15 mg tablet take 1 tablet (15 mg) by oral route once daily 04/15 completed Not Available Not Available Not Available prednisone 20 mg tablet TAKE ONE TABLET BY MOUTH TWICE DAILY FOR 5 DAYS for foot 01/20 completed Not Available Not Available Not Available hydralazine 25 mg tablet TAKE 1 TABLET TWICE A DAY WITH FOOD 2023 active Not Available Not Available Not Avai lable potassium chloride ER 10 mEq tablet,exte nded release TAKE 2 TABLETS ONCE DAILY 2023 active Not Available Not Available Not Avai lable clopidogrel 75 mg tablet TAKE 1 TABLET DAILY 2023 active Not Available Not Available Not Avai lable ciprofloxac in 500 mg tablet 05/26 completed Not Available Not Available Not Available spironolact one 25 mg tablet TAKE 1 TABLET DAILY FOR FLUID 07/15 completed Not Available Not Available Not Available vancomycin 125 mg capsule Take 1 capsule every 6 hours by oral route for 10 days. 09/15 completed Not Available Not Available Not Available prednisone 10 mg tablets in a dose pack Take as directed by mouth 09/07 completed Not Available Not Available Not Available lorazepam 0.5 mg tablet TAKE ONE TABLET BY MOUTH TWICE A DAY NEEDED 05/26 completed Not Available Not Available Not Available triamcinolo ne acetonide 0.1 % dental paste place a small amount to the affected oral lesion by mucous membrane route 2-3 times daily after meals 05/26 completed Not Available Not Available Not Available furosemide 80 mg tablet 05/26 completed Not Available Not Available Not Available diazepam 2 mg tablet 11/06 completed Not Available Not Available Not Available benzonatate 100 mg capsule Take 1 capsule 3 times a day by oral route as needed, for cough. 11/06 completed Not Available Not Available Not Available doxycycline monohydrate 100 mg capsule take 1 capsule (100 mg) by oral route 2 times per day for 10 days for UTI 06/27 completed Not Available Not Available Not Available triamcinolo ne acetonide 40 mg/mL suspension for injection Take 1 mL by injection route. 01/29 completed Not Available Not Available Not Available cephalexin 500 mg capsule TAKE ONE CAPSULE BY MOUTH TWICE DAILY FOR 7 DAYS for foot infection 01/20 completed Not Available Not Available Not Available cyanocobala min (vit B-12) 1,000 mcg/mL injection solution Inject 1 mL every month by subcutane ous route for 90 days. 10/07 completed Not Available Not Available Not Available triamcinolo ne acetonide 0.1 % topical ointment APPLY A THIN LAYER TO THE AFFECTED AREA(S) BY TOPICAL ROUTE 2 TIMES PER DAY 01/29 completed Not Available Not Available Not Available dexamethaso ne 4 mg tablet take 1 tablet (4 mg) by oral route for seven days 02/12 completed Not Available Not Available Not Available Synthroid 75 mcg tablet Take 1 tablet every day by oral route. 2023 active Not Available Not Available Not Avai lable betamethaso ne dipropionat e 0.05 % topical cream APPLY A THIN LAYER TO THE AFFECTED AREA(S) BY TOPICAL ROUTE ONCE DAILY 10/07 completed Not Available Not Available Not Available gabapentin 300 mg capsule TAKE 1 CAPSULE BY MOUTH NEEDED AT BEDTIME FOR SEVERE neck pain active Not Available Not Available No t Available bumetanide 1 mg tablet Take one tablet by mouth twice daily at 8AM and NOON active Not Available Not Available No t Available hydrochloro thiazide 25 mg tablet 01/24 completed Not Available Not Available Not Available furosemide 20 mg tablet take 1 tablet (20 mg) by oral route once daily 10/20 completed Not Available Not Available Not Available albuterol 90 mcg/actuati on aerosol inhaler 04/15 completed Not Available Not Available Not Available methylpredn isolone 4 mg tablets in a dose pack take by mouth as directed on package for 6 days 10/22 completed Not Available Not Available Not Available albuterol sulfate HFA 90 mcg/actuati on aerosol inhaler inhale 2 puffs by mouth every four hours as needed active Not Available Not Available No t Available cefdinir 300 mg capsule take 1 capsule (300 mg) by oral route every 12 hours 02/17 completed Not Available Not Available Not Available loratadine 10 mg tablet Take 1 tablet every day by oral route, for rash. 10/22 completed Not Available Not Available Not Available diazepam 5 mg tablet TAKE 1 TABLET (5 MG) BY ORAL ROUTE EVERY 12 HOURS NEEDED ACUTE GRIEF REACTION 05/26 completed Not Available Not Available Not Available ropinirole 4 mg tablet TAKE 2 TABLETS AT 2 P.M., 5 P.M., AND AT BEDTIME 2024 active Not Available Not Available Not Avai lable escitalopra m 10 mg tablet TAKE 1 TABLET DAILY FOR DEPRESSIO N AND ANXIETY 2023 active Not Available Not Available Not Avai lable eplerenone 25 mg tablet TAKE 1/2 TABLET BY MOUTH EVERY DAY IN THE MORNING FOR SWELLING active Not Available Not Available No t Available cyclobenzap rine 5 mg tablet Take 1 tablet every day by oral route at bedtime. 11/06 completed Not Available Not Available Not Available Klor-Con M20 mEq tablet,exte nded release 05/26 completed Not Available Not Available Not Available Klor-Con M10 mEq tablet,exte nded release 05/02 completed Not Available Not Available Not Available nitrofurant oin monohydrate /macrocryst als 100 mg capsule Take 1 capsule every 12 hours by oral route for 7 days, for UTI. 01/20 completed Not Available Not Available Not Available potassium chloride ER 20 mEq tablet,exte nded release 1 po bid 04/15 completed Medic ation ID: ''; Medic ation Name: 'POTA SSIUM CL ER 20 MEQ TABLE T'; Iesha ptTyp e: ''; Not Available Not Available Not Available Jardiance 10 mg tablet TAKE 1 TABLET DAILY 2024 active Not Available Not Available Not Avai lable True Metrix Glucose Test Strip Take 1 strip twice a day by miscell. route. 2024 active Not Available Not Available Not Avai lable sacubitril 49 mg-valsarta n 51 mg tablet take 1 tablet by oral route 2 times per day 05/26 completed Not Available Not Available Not Available Entresto 97 mg-103 mg tablet TAKE 1 TABLET TWICE A DAY 2023 active Not Available Not Available Not Avai lable Vitals Date Recorded Body height Body temperature Heart rate Oxygen saturation Systolic And Diastolic Provider Name and Address Organization Details Last Updated DateTime 5 152.4 cm 98.1 [degF] 67 /min 94 % 137/66 mm[Hg] [employer] 5 11:26:06 Date Recorded Body height Body temperature Heart rate Oxygen saturation Systolic And Diastolic Provider Name and Address Organization Details Last Updated DateTime 5 152.4 cm 98.6 [degF] 58 /min 94 % 126/52 mm[Hg] [employer] 5 11:36:02 Date Recorded Body height Body temperature Heart rate Oxygen saturation Systolic And Diastolic Systolic And Diastolic Systolic And Diastolic Provider Name and Address Organization Details Last Updated DateTime 5 152.4 cm 97.5 [degF] 65 /min 94 % 165/70 mm[Hg] 149/77 mm[Hg] 143/65 mm[Hg] [employer] 5 10:53:01 Date Recorded Systolic And Diastolic Provider Name and Address Organization Details Last Updated DateTime 07/22/2025 158/84 mm[Hg] Rocio Tavera APRN [address] [place] [address], [id number], [employer] 07/22/2025 14:19:01 Date Recorded Body height Body temperature Heart rate Oxygen saturation Systolic And Diastolic Systolic And Diastolic Systolic And Diastolic Provider Name and Address Organization Details Last Updated DateTime 5 152.4 cm 98 [degF] 67 /min 95 % 173/76 mm[Hg] 174/82 mm[Hg] 160/81 mm[Hg] IGGY LOPEZ [employer] 5 09:12:23 Social History Question Answer Notes LastModified by Organizat ion Details LastModified Time Tobacco Smoking Status Never Smoker TRELL LARRYGERMAN [place], [employer] 06/02/2022 10:28:22 Do You Have An Advance Directive? No Information n ot available 05/26/2022 Is Your Home Air Conditioned? Yes Information not available 05/26/2022 Do You Wear A Helmet When Biking? No Information not available 05/26/2022 Are You Blind Or Do You Have Difficulty Seeing? No Information n ot available 05/26/2022 Are You A Caregiver? No Information not available 05/26/2022 In The 14 Days Before Symptom Onset, Have You Had Close Contact With A Laboratory-confirm ed COVID-19 While That Case Was Ill? No Information n ot available 05/26/2022 In The 14 Days Before Symptom Onset, Have You Had Close Contact With A Person Who Is Under Investigation For COVID-19 While That Person Was Ill? No Information not available 05/26/2022 Have You Been To An Area Known To Be High Risk For COVID-19? No Information not available 05/26/2022 Are You Deaf Or Do You Have Serious Difficulty Hearing? No Information not available 05/26/2022 What Type Of Diet Are You Following? DIABETIC Information n ot available 05/26/2022 What Is The Highest Grade Or Level Of School You Have Completed Or The Highest Degree You Have Received? [id number] Information not available 05/26/2022 Have There Been Any Changes To Your Family Or Social Situation? No Information no t available 05/26/2022 Are There Any Guns Present In Your Home? No Information not available 05/26/2022 Do You Have A Medical Power Of Hide Measuring Machine Operator? No Information not available 05/26/2022 What Was The Date Of Your Most Recent Tobacco Screening? 07/22/2025 Information not available 07/22/2025 Do You Have Any Pets? No Information not available 05/26/2022 What Is Your Relationship Status? Information not available 05/26/2022 Do You Use Your Seat Belt Or Car Seat Routinely? Yes Information not available 05/26/2022 Are You Sexually Active? No Information not available 05/26/2022 Do You Have Smoke And Carbon Monoxide Detectors In Your Home? Yes Information not available 05/26/2022 Are You Passively Exposed To Smoke? No Information no t available 05/26/2022 Are There Any Smokers In Your House? No Information not available 05/26/2022 Do You Participate In Social Media? No Information not available 05/26/2022 Do You Use Sunscreen Routinely? No Information not available 05/26/2022 Has Tobacco Cessation Counseling Been Provided? No Information not available 05/26/2022 Have You Recently Traveled Abroad? No Information not available 05/26/2022 Do You Have Difficulty Walking Or Climbing Stairs? Yes Information not available 05/26/2022 Are You Currently In School? No Information not available 05/26/2022 Do You Have Any Dietary Restrictions? Yes Information not available 05/26/2022 Sex: Female Functional Status Question Answer Note LastModified by Organizat ion Details LastModified Time Do you use any illicit or recreational drugs? No Information not available 05/26/2022 Do you or have you ever used any other forms of tobacco or nicotine? No Information not available 05/26/2022 What is your level of alcohol consumption? None Information not available 05/26/2022 Are you currently employed? No Information not available 05/26/2022 Do you have transportation difficulties? Yes Information not available 05/26/2022 Are you able to walk independently without assistance or assistive devices? YESLIMIT Information not available 05/26/2022 Do you have difficulty doing errands alone? Yes Information not available 05/26/2022 Are you able to care for yourself independently? Yes Information not available 05/26/2022 Do you have difficulty dressing, bathing, grooming, or toileting? Yes Information not available 05/26/2022 What is your exercise level? None Information not available 05/26/2022 Mental Status Question Answer Note LastModified by Organizat ion Details LastModified Time Do you feel stressed (tense, restless, nervous, or anxious, or unable to sleep at night)? [id number] Information not available 12/15/2024 Do you have difficulty concentrating, remembering or making decisions? No Information no t available 05/26/2022 Family History Relationship Description Onset Age of this Age Resolved Age Notes LastModified by Organization Details LastModified Time Father No current problems or disability [email or web address] Not available 05/12 10:28:13 Mother No current problems or disability [email or web address] Not available 05/12 10:28:13 Medical History Condition Response ADD/ADHD N Diabetes Y Hospitalizations N Emergency room visit since last appointm ent. N Abuse/Domestic Violence N Hypertension Y Hypothyroidism Y Gynecological History Statement/Question Response Date of Last Pap Smear Most Recent Mammogram 10/27/2010 Obstetrics History GPAL:G 0 P 0 0 0 0 Immunizations Vaccine Type Date Status Note Provider Nam e and Address Organization Details Recorded Time COVID-19 vaccine, vector-nr, rS-Ad26, PF, 0.5 mL 1 completed Not Available [facility] 05/16/2022 23:01:36 Tdap 1 completed IGGY MYNEAR null, [employer], [employer] 08/08/2022 16:05:23 Td (adult), 2 Lf tetanus toxoid, preservative free, adsorbed 1 completed IGGY [employer] null, [employer], [employer] 08/08/2022 16:05:23 Influenza, high-dose, trivalent, PF 5 completed IGGY MYNEAR null, [employer], [employer] 06/10/2025 13:21:50 COVID-19, mRNA, LNP-S, PF, 100 mcg/0.5mL dose or 50 mcg/0.25mL dose 2 completed Not Available [facility] 07/22/2025 09:14:12 Past Encounters Encounter ID Performer Location Encounter Start Date Encounter Closed Date Diagnosis/Indication Diagnosis SNOMED-CT Code Diagnosis ICD10 Code Diagnosis IMO Codes Diagnosis [place] [id number] [place] [address] 05/26/2022 10:51:51 05/26/2022 13:34:43 Localized edema 206928658 R60.0 [id number] [place] [address] 06/02/2022 13:01:54 06/02/2022 13:47:18 Sinusitis 32960981 J32.9 Cough 88154948 R05.9 Headache 41945818 R51.9 [id number] [place] [address] 07/24/2022 13:35:39 07/24/2022 14:54:27 Moderate recurrent major depression 01521506 F33.1 Type 2 pineda betes mellitus without complication 522865537 E11.9 Chronic sy stolic heart failure 671889939 I50.22 Continue current medication s, again emphasized low-salt diet. Again encouraged her to consider bereavemen t counseling . 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 To RTC with stool specimen. Continue current medication s. Hydrate well. Handwashin g emphasized . Physical deconditioning 3514293364 9102 R68.89 [id number] [place] [address] 09/15/2022 16:47:33 09/15/2022 17:34:10 Chronic systolic heart failure 646739334 I50.22 Continue current medication s, again emphasized low-salt diet. Increase Bumex to 2 mg BID. Strongly encouraged use of BRENDA hose daily and elevate legs. Generalize d anxiety disorder 33071776 F41.1 Urinary incontinence 165 972050 R32 RX for Purewik catheter sent. [id number] [place] [address] 10/20/2022 10:17:37 10/20/2022 10:54:57 Chronic systolic heart failure 132749287 I50.22 Continue current medication s, again emphasized low-salt diet. Increase Bumex to 1 mg BID. Strongly encouraged use of BRENDA hose daily and elevate legs. [id number] [place] [address] 11/03/2022 10:29:36 11/03/2022 10:56:48 Chronic systolic heart failure 974697754 I50.22 Continue meds as prescribed with the Bumex, continue BRENDA hose and low salt diet. 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 for power scooter. Chronic sy stolic heart failure 082132472 I50.22 Continue meds as prescribed with the Bumex, continue BRENDA hose and low salt diet. Transient cerebral ischemia 614201951 G45.9 Falls safety again reviewed with patient. [id number] Rocio Tavera [address] [address] 12/26/2022 10:08:47 12/26/2022 11:06:20 Removal of suture 56593811 Z48.02 Suture x 1 removed intact. She was inst to continue wound care as per Dermatolog y. [id number] Rocio Tavera [place] [id number] 01/30/2023 13:10:01 01/30/2023 14:45:18 Chronic systolic heart failure 520081220 I50.22 Continue current medication s, low-salt diet, BRENDA hose daily. 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 Chronic sy stolic heart failure 894739790 I50.22 Continue current medication s, low-salt diet, BRENDA hose daily. Oxygen at night and as needed during the day Moderate r ecurrent major depression 39729183 F33.1 Continue Lexapro. Neck pain 86833197 M54.2 Tylenol and topical voltaren prn, ice, refer to PT. [id number] Rocio Tavera [place] [id number] 07/30/2023 08:47:53 07/30/2023 09:29:54 Neck pain 34983070 M54.2 RICE, obtain x ray. She has no neuro deficits today. Muscles are tight. Type 2 pineda betes mellitus without complication 086972985 E11.9 Emphasize medication compliance and low carbohydra te diet Restless l egs syndrome 27294272 G25.81 Continue requip and Mag Ox 400 mg q day. Chronic sy stolic heart failure 436149391 I50.22 Continue current medication s, low-salt diet, BRENDA hose daily. Oxygen at night and as needed during the day Hypothyroidism 13306222 E03.9 Continue Synthroid [id number] Rocio Tavera [place] [address] 08/15/2023 08:51:37 08/15/2023 11:06:14 Cough 54298066 R05.9 Patient presented with symptoms of upper respirator y infection. Advised to drink plenty of fluids, run a cool-mist humidifier in room at night, gargle salt water for sore throat, and get plenty of rest. Patient should avoid over-exert ion and reduce exposure to irritants such as smoke, cold, dry air, and dust. Treatment currently involves symptomati c relief. Patient may take acetaminop hen or ibuprofen as directed to reduce fever and body aches. Antihistam ine and decongesta nt usage was discussed and recommenda tions made. Patient understood these instructio ns and will follow up in the office in 10 days to 2 weeks if symptoms not improving. [id number] Neda Broderick PA-C [place] [address] 08/25/2023 09:46:30 08/25/2023 10:40:12 Neck pain 72529133 M54.2 Taper of steroids sent. Offered PT or ortho referral and Nanette and her son would like to wait and see if steroids are helpful. Rest the affected limb. Put ice on the affected limb for 15 minutes every 1-2 hours as needed for pain and swelling. Wear the recommende d compressio n device as instructed . Elevate the limb above heart level when not using it. Take ibuprofen (Advil/Mot rin), naproxen (Aleve), or acetaminop hen (Tylenol) as needed for pain. If not improving in the next 7-10 days follow up by phone as you may require a follow up appointmen t, x-ray or an appointmen t with an orthopedis t (bone doctor). 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 I will start gabapentin and medrol paz. WIll obtain CT neck to evaluate further and hopefully refer her for epidural cspine injection. [id number] Rocio Tavera, [place] [id number] 10/03/2023 09:11:33 10/03/2023 10:44:02 Acute bronchitis 61868414 J20.9 Cough The patient presents wet cough. The patient's condition is worsening. Based on the findings today we will begin medication therapy. Reviewed symptomati c care instructio ns, the expected course of these illnesses and explained that coughing can persist for some time. Provided precaution s for signs of worsening disease and instructio ns on contacting us if symptoms worsen. Acute laryngitis 8908983 J04.0 [id number] [place] [address] 10/10/2023 09:11:10 10/10/2023 09:49:25 Acute bronchitis 98716331 J20.9 Cough The patient presents dry cough. The patient's condition is improved. Based on the findings today we will begin medication therapy. Reviewed symptomati c care instructio ns, the expected course of these illnesses and explained that coughing can persist for some time. Provided precaution s for signs of worsening disease and instructio ns on contacting us if symptoms worsen. May use ventolin prn cough, I have given her a 14 day sample of breo to use once daily and demonstrat ed first use here in clinic with her. Explained this cough is a residual inflammato ry cough and will use Breo to decrease that. [id number] Rocio Tavera [address] [address] 11/06/2023 13:46:10 11/06/2023 16:02:50 Type 2 diabetes mellitus without complication 321695758 E11.9 Emphasize medication compliance and low carbohydra te diet Hypertensive disorder 38 766364 I10 Vitamin B deficiency 479 29686 E53.9 [id number] Rocio Tavera [address] [place] [address] 12/11/2023 09:16:48 12/11/2023 11:36:29 Acute urticaria 280493772 L50.9 Customary discussion of prescribed medication benefits, side effects, and compliance was done. Patient was instructed on proper skin care. Discussed disease presentati on, treatment options, progressio n, complicati ons, and outcomes with patient during this office visit. [id number] [place] [address] 01/30/2024 10:26:09 01/30/2024 11:15:12 Insect bite reaction 492931163 T63.481A I have advised her to speak with her landlord about pest inspection and control for her apartment. I have advised her to vacuum soft surfaces and wash sheets and inspect mattress. [id number] Rocio Tavera [place] [address] 04/14/2024 14:14:29 04/14/2024 15:11:08 Pain in left arm 977936306 M79.602 Left arm feels normal today with her baseline range of motion, brisk cap refill and positive radial pulse. She was given reassuranc e. I did have a long discussion with her today again regarding fall safety. Fall on same level [address] 003 W18.30XA [id number] Rocio Tavera [place] [id number] 07/15/2024 11:19:20 07/15/2024 12:21:53 Chronic kidney disease stage 4 021607944 N18.4 I had a long discussion with Nanette and her son today regarding the progressio n of her kidney disease. It is a careful balance between using diuretics to maintain her CHF and preserve her kidney function. She is to continue to hydrate well and avoid all NSAID drugs. She may need referral to nephrology , but she is not interested in this at this time. Acute urin sharon tract infection 160019328 N39.0 Complete the antibiotic s that were prescribed at hospital discharge. Chronic sy stolic heart failure 757283377 I50.22 Continue current medication s, low-salt diet, BRENDA hose daily. Oxygen at night and as needed during the day Hypothyroidism 79862957 E03.9 Continue Synthroid Type 2 pineda betes mellitus without complication [id number] E11.9 Emphasize medication compliance and low carbohydra te diet [id number] Rocio Ayse[address] [address] 08/05/2024 08:58:08 08/05/2024 10:09:51 Chronic kidney disease stage 3B [id number] N18.32 Continue to hydrate well, control blood pressure well, and avoid all NSAID drugs. We will recheck her renal function in 3 months time. She declined referral to nephrologi st today, but has good understand ing of her disease processes. Chronic sy stolic heart failure 914270534 I50.22 Continue current medication s, low-salt diet, BRENDA hose daily. Oxygen at night and as needed during the day Disorder o f vitamin B12 668121447 E53.8 [id number] Rocio Tavera[address] [address] 10/07/2024 09:05:12 10/07/2024 09:50:59 Fracture of phalanx of foot 93557852 S92.911D 2nd left toe, likely has a bit of gout flare also. Medrol paz will help this. 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 Steroid pack and refill gabapentin today. [id number] Rocio Tavera [address] [address] 10/22/2024 10:12:51 10/22/2024 11:14:03 Chronic systolic heart failure 438965050 I50.22 Start Jardiance 10 mg daily, increase Bumex back to BID at AM and noon, low-salt diet, BRENDA hose daily. Oxygen at night and as needed during the day. Recheck in 1 week. Type 2 pineda betes mellitus without complication [id number] E11.9 Glucose uncontroll ed. Start low dose Jardiance. Chronic ki dney disease stage 4 472406832 N18.4 Continue to hydrate well and avoid NSAIDS. Recheck BMP today. [id number] [place] [address] 10/31/2024 09:12:08 10/31/2024 10:21:04 Chronic systolic heart failure 234271862 I50.22 Stabilizin g. Contyinue low-salt diet, BRENDA hose daily. Oxygen at night and as needed during the day. Type 2 pineda betes mellitus without complication 227076852 E11.9 Continue metformin and Jardiance. [id number] [place] [address] 0 12/15/2024 10:37:09 12/15/2024 11:37:47 Type 2 diabetes mellitus without complication 879748007 E11.9 Continue metformin and Jardiance. Chronic sy stolic heart failure 362275971 I50.22 Add Inspra low dose. Continue Bumex, jardiance, and Entresto. DASH diet with BRENDA hose daily. Cautious with meds due to her renal function but GFR was improved to 42 at last check. [id number] [place] [address] 01/20/2025 11:02:56 01/20/2025 11:58:38 Type 2 diabetes mellitus 94605204 E11.9 98612424 Continue metformin and Jardiance. Chronic ki dney disease stage 4 953386628 N18.4 Continue to hydrate well and avoid NSAIDS. Recheck BMP today. Hypothyroidism 37982915 E03.9 Continue Synthroid Chronic sy stolic heart failure 619510268 I50.22 Limit salt, use oxygen at HS. Wear BRENDA hose daily. [id number] [place] [address] 04/22/2025 11:02:20 04/22/2025 12:30:38 Preventive procedure 447166659 Z00.00 [id number] Type 2 pineda betes mellitus 15762077 E11.9 74456469 Continue metformin and Jardiance. 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 Neck pain 43841879 M54.2 RICE, obtain x ray. She has no neuro deficits today. Muscles are tight. [id number] [place] [address] 0 06/10/2025 12:39:56 06/10/2025 13:25:45 Influenza vaccination given [id number] 9109 Z23 72224835 [id number] [place] [address] 0 07/22/2025 08:45:23 07/22/2025 09:50:23 Type 2 diabetes mellitus 82663041 E11.22 N18.4 61052102 Continue metformin and Jardiance. A1c is improved! Chronic sy stolic heart failure 189910888 I50.22 Restart low dose Inspra and continue Bumex. Candidiasis of vagina 72 578590 B37.31 Health Concerns Section Related Observation LastModified by Organization Detai ls LastModified Time None Recorded Concern Status LastModified by Organization Details LastModified Time None Recorded Advance Directives Directive N: Payers Insurance Date Sequence Insurance Name Policy Number Policy Navarro Covered Member ID Navarro Member ID Guarantor Name 07/24/2025 2 [employer] LIFE ( - MEDICARE SUPPLEMENT) Nanette Jorge [id number] Nanette Jorge 12/15/2024 1 [place]MEDICARE REPLACEMENT HMO) [id number] Nanette Jorge [id number] Nanette R Luisito 12/15/2024 [facility] (MEDICARE REPLACEMENT/A DVANTAGE - HMO) Nanette R Luisito [id number] Nanette R Luisito 12/15/2024 1 [place]MED[place] H[place] [id number] Nanette R Luisito [id number] Nanette R Luisito 07/19/2025 [place] [employer] [facility] Nanette R Luisito [id number] Nanette R Luisito 12/15/2024 1 [place] Nanette R Luisito [id number] Nanette R Luisito 12/15/2024 2 [place] Nanette R Luisito [id number] Nanette R Luisito 12/15/2024 2 FOR LIFE () Nanette R Paula [id number] Nanette R Luisito 12/15/2024 [place] [employer] - [facility] Nanette R Paula [id number] Nanette R Luisito 07/19/2025 1 [place]MED[place]AC[place] H[place] [id number] Nanette R Luisito [id number] Nanette R Luisito 07/05/2022 2 UNSPECIFIED REMIT PAYOR Nanette R Luisito Notes Date Note Type Note Provider Name and Address Organization Details Recorded Time 5 text/html Care Management - Congestive Heart Failure (CHF)Reported by PatientHPIFor self care, patient reportsrecent hospitalization. For associated symptoms, patient reportsshortness of breath (with exertion),fatigue, andlimb swelling (improved)but reportsno chest pain,normal heartbeat,no chest tightness,no constant coughing,no blood from coughs,no abdominal swelling, andno appetite loss. For prognosis, patient reportsexpected outcome: stabilizeandprognosis: guarded. For severity, patient reportssymptoms are improving.ROS as noted in the HPI A1c was elevated and jardiance was started at renal dosing. Glucose a bit improved today and she is tolerating Jardiance without difficulty. CHF is improved with addition of eplerenone. Rocio Tavera, SWEAT BOX ATTENDANT [address] [facility] [place], [address], [facility] [email or web address] 02/06/2025 17:00:15 5 text/html Diabetes F/UReported by PatientHPIFor context, patient reportshome blood sugar range highbut reportstaking aspirin daily,not missing doses of medications, andno side effects from medications. For associated symptoms, patient reportsincreased urination,numbness of feet, andcalluses on feetbut reportsno weight gain,no weight loss,no dizziness,no sweats,no headaches,no confusion,no increased thirst,no increased appetite, andno blurred vision. For labs, patient reportslast a1c result: 9. Medicare Annual Wellness VisitReported by PatientSocial/Behavioral HistoryFor diet and nutrition, patient reportsdiet is high in fat, low in fiberandhigh carbohydrate mealsbut reportsdiscussed vitamin and supplement use,discussed portion control,discussed maintaining calcium balance, anddiscussed diet improvement. For physical activity, patient reportsdeconditioned due to sedentary lifestyle. For fracture risk, patient reportsno history of fractures,no recent explained fracture, andno sudden unexplained fractures.Mental Status:For depression risk, patient reportshistory of depressionbut reportsno loss of interest in activities,no significant changes in weight,no sleep disturbances or insomnia,no agitation,no feelings of worthlessness or guilt, andno thoughts of suicide. For speech/motor difficulties, patient reportsdifficulty with fine manipulative tasks,difficulty writing/copying,slowed reaction time, andknocking things over when trying to pick them upbut reportsno speech difficultiesandno difficulty expressing formulated concepts. For orientation, patient reportsno disorientation to time,no disorientation to date, andno disorientation to place. For concentration and memory, patient reportsno decreased concentrating ability,no memory lapses or loss, anddoes not forget words.Functional AbilityFor hearing, patient reportsgetting progressively worse,difficulty hearing over background noise, andrequires tv, radio at high volume. For activities of daily living, patient reportsunable to bathe without assistance,unable to dress without assistance, andunable to control urination and bowelsbut reportsable to feed self with limited or no assistance,able to get out of chair or bed with limited or no assistance,able to groom with limited or no assistance, andable to toilet with limited or no assistance. For instrumental activities of daily living, patient reportsunable to do house work without assistance,unable to grocery shop without assistance,unable to manage medications without assistance, andunable to manage money without assistancebut reportsable to prepare meals with limited or no assistanceandable to use the phone with limited or no assistance. For falls risk assessment, patient reportsfrequent falls while walkingbut reportsno fall since last visit,no dizziness/vertigo, andfall(s) in the past year ___. For vision, patient reportsno vision problems. For home safety, patient reportsno unsafe patricia hazzards,no unsafe stairs,no unsafe gas appliances,working smoke/co detectors,use of seatbelts,has hand bars in the bathroom/shower,good lighting in the home, andreviewed sun protection.ROS as noted in the HPI complains of leg cramps and vaginitis Rocio Tavera, PHILIP [address] [facility] [place], [address], [facility] [email or web address], [facility]. 05/12/2025 21:04:47 5 text/html ROS as noted in the HPI Nanette Jorge presents with a recent episode of shaking and subsequent fatigue, possibly related to gabapentin use. She reports waking up at 3 AM with full-body shaking from her head to her toes, lasting about 10 minutes. During this episode, she experienced a thick tongue and difficulty speaking. For the past two days following the incident, she has felt weak and excessively tired, wanting to sleep constantly. However, today she reports feeling normal.The patient denies that the shaking felt like chills. She also mentions that during the episode, her arm felt heavy, requiring her to lift it with her other arm. Similarly, her leg was affected, though she can now lift both her arm and leg normally. Nanette suspects these symptoms may be related to recently restarting gabapentin for her chronic neck pain, as she had experienced similar issues with the medication in the past. She reports taking gabapentin only once recently, possibly coinciding with the onset of symptoms.Nanette denies any current urinary problems or symptoms suggestive of a urinary tract infection. She also reports no breathing difficulties or cough. Her blood sugar this morning was 146, which she notes is an improvement. The patient mentions that her neck pain has rarely been bothering her lately. Rocio Tavera APRN [address] [place], [address], [employer] 05/22/2025 12:12:40 5 text/html ROS as noted in the HPI History of Present IllnessNanette Jorge presents for follow-up of multiple chronic conditions including diabetes, heart failure, and chronic neck OA.Her diabetes management shows improvement with her blood glucose decreasing from 10.0 at the last visit to 8.3 today following dietary modifications. She has been limiting sweets and drinking Diet Pepsi, though she continues to struggle with dietary restrictions including potatoes and bread.Regarding her heart failure, she reports worsening BLE swelling despite taking Bumex, though she has not had the Inspra to take for some reason. She had been taking half a tablet daily in the AM. She has developed a new dry cough, which she notes is unusual as she typically does not cough. She denies increased shortness of breath.Her neck pain continues to be problematic, waking her this morning and requiring Lido patches. She takes gabapentin for pain relief approximately once daily or every other day when needed, particularly when pain disrupts her sleep. She cannot take NSAIDS due to CKD.She continues to have mild urinary yeast issues due to urinary incontinence and takes antifungal medication once weekly for maintenance. Her bowel movements are normal, and she received her flu vaccination as scheduled. Rocio Tavera APRN [address] [place], [address], [employer] 07/22/2025 14:20:26 OBGyn Episode No OBEpisode recorded.
--- OUTSIDE RECORDS SUMMARY | 2025-08-05 16:20 | XMS_ITS ---
Author Organization [facility] Address [address] [place] [address] Phone Care Team Providers Care Pairer Odds Name Role Phone Rocio Tavera APRN Unavailable [phone] Valdemar CINTRON, Arsh Hinkle Unavailable [phone] Cruz Casiano D.O. Primary Care Provider [phone] Reason for Referral Date Encounter Description Provider Reason for Referral 10/02/23 Physician Specified Flaquito Somers PA-C Referral To Physician 06/11/20 SECOND OPINION Arsh Aldrich MD Re ferral To Physician Problems Includes: Active, inactive, and resolved Problems All Visits Onset Date Resolved Date Provider Condition S tatus Neck Pain 10/02/2023 Flaquito Lala Active Last Documented On 4 1:20PM ; [facility] Soft Tissue Pain Lower Leg Right 06/11/2020 Varun in Manan Aldrich MD Active Last Documented On 0 10:28AM ; [facility] Plan of Treatment No Plan of Treatment Recorded Assessments Includes: Assessments for all patient encounters No Assessments Recorded Medical Equipment - Implanted Devices Includes: Current and historical Devices No Medical Equipment Recorded Medications Includes: Current and historical Medications Current Medications (continue as prescribed) Gabapentin 300 MG Oral Capsule 09/07/2023 Provider: Rocio Tavera APRN Diagnosis: Last Documented On 4 1:20PM By Onur Rick ; [facility] methylPREDNISolone 4 MG Oral Tablet Therapy Pack 09/07/2023 Provider: Rocio Tavera APRN Diagnosis: Last Documented On 4 1:20PM By Onur Rick ; [facility] Cyclobenzaprine HCl 5 MG Oral Tablet 08/25/2023 Prov ider: Neda Davie Diagnosis: Last Documented On 4 1:20PM By Onur Rick ; [facility] predniSONE 10 MG (21) Oral Tablet Therapy Pack 023 Provider: Neda Broderick Diagnosis: Last Documented On 4 1:20PM By Onur Rick ; [facility] diazePAM 2 MG Oral Tablet 08/23/2023 Provider: HAVEN SALGADO MD Diagnosis: Last Documented On 4 1:20PM By Onur Rick ; [facility] Past Medications on file Meloxicam 15 MG Oral Tablet 06/21/2020 - 09/19/2020 Pr ovider: Arsh Aldrich MD Diagnosis: Take 1/2 - 1 tablet daily Last Documented On 0 9:11AM By Kimberly Myrick ; [facility] Medications Administered Includes: Administered Medications in patient's chart No Administered Medications Recorded Results Includes: Results from 08/05/2024 through 08/05/2025 No Results Recorded For Specified Dates History of Present Illness History of Present Illness not supported for this document type No History of Present Illness Recorded Social History Description Last Updated Tobacco non-user 10/02/2023 Last Documented On 4 9:49AM ; [facility] No recent change in diet 10/02/2023 Last Documented On 4 9:49AM ; [facility] Not a current smoker. 10/02/2023 Last Documented On 4 9:49AM ; [facility] Non-smoker 06/11/2020 Last Documented On 0 8:37AM ; [facility] No caffeine use 06/11/2020 Last Documented On 0 8:37AM ; [facility] No recent change in diet 06/11/2020 Last Documented On 0 8:37AM ; [facility] Not a current smoker. 06/11/2020 Last Documented On 0 8:37AM ; [facility] Not exercising regularly 06/11/2020 Last Documented On 0 8:37AM ; [facility] Not using alcohol 06/11/2020 Last Documented On 0 8:37AM ; [facility] Not using drugs 06/11/2020 Last Documented On 0 8:37AM ; [facility] Smoking Status Unknown Procedures and Surgical History Surgical History Last Updated History of hysterectomy 10/02/2023 Last Documented On 4 9:49AM ; [facility] Medical History Includes: Medical History in patient's chart Description Last Updated History of Stroke 10/02/2023 Last Documented On 4 9:49AM ; [facility] Arthritis 06/11/2020 Last Documented On 0 8:37AM ; [facility] History of diabetes mellitus 06/11/2020 Last Documented On 0 8:37AM ; [facility] History of Heart Attack / Stroke 020 Last Documented On 0 8:37AM ; [facility] No recent immunization for flu 0 Last Documented On 0 8:37AM ; [facility] No recent immunization for pneumococcal pneumonia 06/11/2020 Last Documented On 0 8:37AM ; [facility] Family History Includes: Family History in patient's chart Description Last Updated No significant family history 06/11/2020 Last Documented On 0 8:37AM ; [facility] Review of Systems Review of Systems not supported for this document type No Review of Systems Recorded Mental Status No Mental Status Recorded Functional Status No Functional Status Recorded Physical Exam Physical Exam not supported for this document type No Physical Exam Recorded Allergies Includes: Active, inactive, and resolved Allergies No Known Allergies Insurance Includes: Active Insurance Policies Plan Name Member ID Group # Subscriber Relationship Effect dann Dates 1 - BC[place] Medicare [id number] Nanette Kentll Self 2 - FOR LIFE [id number] Nanette Baires Luisito Self Clinical Notes Includes: Signed Clinical Notes starting from 08/24/2022 No Clinical Notes Recorded
--- OUTSIDE RECORDS SUMMARY | 2025-08-05 16:20 | XMS_ITS | Continuity of Care Document ---
Author Organization [place] - [employer] [place] [facility] Address [address] [place] [address] Assessment Encounter Date Assessment Date Assessment LastModified by Organization Details LastModified Time 05/22/2025 05/22/2025 Patient presents with symptoms of UTI. Results of dipstick were negative for UTI. Advised to drink clear fluids, Tylenol for pain and take prescribed medications as instructed. Patient encouraged to follow up within 1 week if not improving. Elderly female with chronic cervical degeneration, diabetes mellitus, and history of adverse reactions to gabapentin, presenting for follow-up after recent gabapentin-relat ed adverse event. Adverse Reaction to Gabapentin Assessment: [...] management - Encourage regular blood glucose monitoring [facility]9 Not available 05/22/2025 12:11:58 Plan of Treatment Reminders Order Date Submit Date Provider Last Modified By Organization Details Last Modified Time Details Appointments None recorded. Lab urinalysis , dipstick [address], [address], 10:58:34 culture, urine 2024 025 [facility], [address] [place] [address], [place], [address], 08:14:54 Referral None recorded. Procedures None recorded. Surgeries None recorded. Imaging None recorded. Medication Orders None recorded. Patient TargetsNo targets recorded. Patient InstructionsNo instructions recorded. Reason for Referral None Reported. Results Created Date Observation Date Name Description Value Unit Range Abnormal Flag Note LastModifiedBy Organization Detail LastModifiedTime 04/22/2004/22/2025 HbA1c (hemo globi n A1c), blood HbA1c 10.[address] Not Available [address], [address], 04/22/2025 11:36:36 04/22/2004/22/2025 urina lysis , dipst ick Leukocytes Trace Not Available [address], [address], 04/22/2025 11:36:49 04/22/2004/22/2025 urina lysis , dipst ick Nitrite negati ve Not Available [address], [address], 04/22/2025 11:36:49 04/22/2004/22/2025 urina lysis , dipst ick Urobilinogen .2 Not Available [address], [address], 04/22/2025 11:36:49 04/22/20 25 04/22/2025 urina lysis , dipst ick Protein 100 Not Available [address], [address], 04/22/2025 11:36:49 04/22/20 25 04/22/2025 urina lysis , dipst ick pH 6.0 Not Available [address], [address], 04/22/2025 11:36:49 04/22/20 25 04/22/2025 urina lysis , dipst ick Blood Non-He molyze d: Modera te Not Available [address], [address], 04/22/2025 11:36:49 04/22/20 25 04/22/2025 urina lysis , dipst ick Specific [place] 1.015 Not Available [address], [address], 04/22/2025 11:36:49 04/22/2004/22/2025 urina lysis , dipst ick Ketone Negati ve Not Available [address], [address], 04/22/2025 11:36:49 04/22/20 25 04/22/2025 urina lysis , dipst ick Bilirubin Negati ve Not Available [address], [address], 04/22/2025 11:36:49 08/13/04/22/2025 urina lysis , dipst ick Glucose Negati ve Not Available [address], [address], 04/22/2025 11:36:49 04/22/20 25 04/22/2025 urina lysis , dipst ick Appearance Clear Not Available [address], [address], 04/22/2025 11:36:49 04/22/20 25 04/22/2025 urina lysis , dipst ick Color Yellow Not Available [address], [address], 04/22/2025 11:36:49 05/22/20 25 05/26/2025 URINE CULTU RE, ROUTI NE urine culture, routine Final report abnormal Not Available [facility] ([facility]) [address] [facility], [place], [address], 05/26/2025 08:14:54 05/22/2005/26/2025 URINE CULTU RE, ROUTI NE result 1 Klebsi krys pneumo niae abnormal Cefaz vadim with an BRIDGET <=16 predi cts susce ptibi lity to the oral agent s cefac yfn, cefdi ivan, cefpo doxim e, cefpr ozil, cefur oxime , cepha lexin , and lorac arbef when used for thera py of uncom plica gaurav urina ry tract infec tions due to E. coli, Klebs iella pneum oniae , and Prote us mirab ilis. Great er than 100,0 00 colon y formi ng units per mL Not Available [facility] ([facility]) [address] [facility], [place], [address], 05/26/2025 08:14:54 05/22/20 25 05/26/2025 URINE CULTU RE, ROUTI NE antimicrobia l [...] thopr im/Jay lfa S Not Available [facility] ([facility]) [address] [facility], [place], [address], 05/26/2025 08:14:54 05/22/2005/22/2025 urina lysis , dipst ick Leukocytes Small Not Available [address], [address], 05/22/2025 10:38:12 05/22/2005/22/2025 urina lysis , dipst ick Nitrite negati ve Not Available [address], [address], 05/22/2025 10:38:12 05/22/20 25 05/22/2025 urina lysis , dipst ick Urobilinogen .2 Not Available [address], [address], 05/22/2025 10:38:12 05/22/20 25 05/22/2025 urina lysis , dipst ick Protein 100 Not Available [address], [address], 05/22/2025 10:38:12 05/22/2005/22/2025 urina lysis , dipst ick pH 6.0 Not Available [address], [address], 05/22/2025 10:38:12 05/22/2005/22/2025 urina lysis , dipst ick Blood Modera te Not Available [address], [address], 05/22/2025 10:38:12 05/22/2005/22/2025 urina lysis , dipst ick Specific [place] 1.020 Not Available [address], [address], 05/22/2025 10:38:12 05/22/2005/22/2025 urina lysis , dipst ick Ketone Negati ve Not Available [address], [address], 05/22/2025 10:38:12 05/22/2005/22/2025 urina lysis , dipst ick Bilirubin Negati ve Not Available [address], [address], 05/22/2025 10:38:12 05/22/2005/22/2025 urina lysis , dipst ick Glucose Negati ve Not Available [address], [address], 05/22/2025 10:38:12 05/22/2005/22/2025 urina lysis , dipst ick Appearance Clear Not Available [address], [address], 05/22/2025 10:38:12 05/22/2005/22/2025 urina lysis , dipst ick Color Dark Yellow Not Available [address], [place], [address], 05/22/2025 10:38:12 Result Notes None recorded. Problems Name Problem SNOMED Code Status Onset Date Resolution Date Notes Provider Name and Address Organization Details Recorded Time Stomatit is 91604399 Completed 202002/03/2021 Problem Code: K12.1; Problem Code Type: ICD-10; Not Available [facility] 22:47:09 COVID-19 674613081 Completed 202010/06/2021 Problem Code: U07.1; Problem Code Type: ICD-10; Not Available [facility] 22:47:10 Hypothyr oidism 90249225 Active 2020 Not Available [facility] 22:47:08 Hyperten sive disorder 64004582 Active 2020 Problem Code: I10; Problem Code Type: ICD-10; Not Available [facility] 22:47:09 Body mass index 30+ - obesity 366785802 Active 2020 Problem Code: Z68.31; Problem Code Type: ICD-10; Not Available [facility] 22:47:11 Localize d edema 830273468 Completed 202010/06/2021 Problem Code: R60.0; Problem Code Type: ICD-10; Rocio Tavera APRN [address] [place], [address] , [facility] [employer] 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 Completed 202010/06/2021 Problem Code: D37.02; Problem Code Type: ICD-10; Not Available [facility] 22:47:08 Acute stress disorder 49881244 Completed 202010/06/2021 Problem Code: F43.0; Problem Code Type: ICD-10; Not Available [facility] 09/05/202 2 22:47:09 Moderate major depressi on, single episode 49301363 Completed 202010/06/2021 Problem Code: F32.1; Problem Code Type: ICD-10; Not Available [facility] 2 22:47:09 Moderate recurren t major depressi on 12684935 Active 2020 Problem Code: F33.1; Problem Code Type: ICD-10; Not Available [facility] 2 22:47:09 Transien t cerebral ischemia 560913902 Active 2020 Not Available [facility] 2 22:47:09 Dysuria 56679363 Completed 202010/06/2021 Problem Code: R30.0; Problem Code Type: ICD-10; Rocio Tavera APRN [address] [place], [address] , [employer] 5 08:47:53 Dizzines s and giddines s 411182533 Completed 202010/06/2021 Problem Code: R42; Problem Code Type: ICD-10; Not Available [facility] 2 22:47:10 Restless legs syndrome 67448912 Active 2021 Problem Code: G25.81; Problem Code Type: ICD-10; Not Available [facility] 2 22:47:09 Chronic systolic heart failure 224406422 Active 2021 Not Available [facility] 2 22:47:11 Dysuria 80533617 Completed 202106/02/2022 Problem Code: R30.0; Problem Code Type: ICD-10; Rocio Tavera APRN [address] [place], [address] , [employer] 5 08:47:53 Neck pain 97311422 Active 2022 Neda Broderick PA-C [address] [place], [address] , [employer] 3 12:35:00 Chronic kidney disease stage 4 705821619 Active 2023 Rocio Tavera APRN [address] [place], [address] , [employer] 4 11:44:09 Type 2 diabetes mellitus 53374977 Active 2024 Rocio Tavera APRN [address] [place], [address] , [employer] 5 09:14:40 Problem Notes None recorded. Procedures Surgical History Date Name Laterality Status Provider Name and Address Organization Details Recorded Time 12/27/19 23 Suture/Staple removal completed Rocio Tavera APRN [address] [place], [address], [employer] 12/26/2022 10:56:41 10/27/19 11 Most Recent Mammogram completed Ailyn Dallas [employer] 10/18/2022 12:48:52 Joint Replacement completed [employer] 05/26/2022 11:54:33 Back Surgery completed [employer] 05/26/2022 11:54:45 Hysterectomy completed [employer] 05/26/2022 11:55:00 Imaging Results None recorded. Procedure [...] Medic ation ID: ''; Medic ation Name: 'JORGE ALBERTO SSIUM CL ER 20 MEQ TABLE T'; [...] % 165/70 mm[Hg] 149/77 mm[Hg] 143/65 mm[Hg] IGGY LOPEZ [employer]. 10:53:01 Social History Question Answer Notes LastModified by Organizat ion Details LastModified Time Tobacco Smoking Status Never Smoker TRELL blackburn [employer]. 06/02/2022 10:28:22 Do You Have An Advance [...] Or The Highest Degree You Have Received? [id number] Information not available 05/26/2022 Have There Been Any Changes To Your Family Or Social Situation? No Information no t available 05/26/2022 Are There Any Guns Present In Your Home? No Information not available 05/26/2022 Do You Have A Medical Power Of College Administrator? No Information not available 05/26/2022 What Was [...] anxious, or unable to sleep at night)? [id number] Information not available 12/15/2024 Do you have difficulty concentrating, remembering or making decisions? No Information no t available 05/26/2022 Family History Relationship Description Onset Age of this Age Resolved Age Notes LastModified by Organization Details LastModified Time Father No current problems or disability [email or web address] Not available 05/12 10:28:13 Mother No current problems or disability [email or web address] Not available 05/12 10:28:13 Medical History Condition [...] PF, 0.5 mL 1 completed Not Available [facility] 05/16/2022 23:01:36 Tdap 1 completed IGGY MYNEAR null, [employer], [employer] 08/08/2022 16:05:23 Td (adult), 2 Lf tetanus toxoid, preservative free, adsorbed 1 completed IGGY MYNEAR null, [employer], [employer]. 08/08/2022 16:05:23 Influenza, high-dose, trivalent, PF 5 completed IGGY MYNEAR null, [employer], [employer]. 06/10/2025 13:21:50 COVID-19, mRNA, LNP-S, PF, 100 mcg/0.5mL dose or 50 mcg/0.25mL dose 2 completed Not Available [facility] 07/22/2025 09:14:12 Past Encounters Encounter ID Performer Location Encounter Start Date Encounter Closed Date Diagnosis/Indication Diagnosis SNOMED-CT Code Diagnosis ICD10 Code Diagnosis IMO Codes Diagnosis Note [id number] [place] [address] 04/22/2025 11:02:20 04/22/2025 12:30:38 Preventive procedure [id number] Z00.00 86147042 Type 2 pineda betes mellitus 72152987 E11.9 17663625 Continue metformin and Jardiance. 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 Neck pain 39341739 M54.2 RICE, obtain x ray. She has no neuro deficits today. Muscles are tight. Health Concerns Section Related Observation LastModified by Organization Detai ls LastModified Time None Recorded Concern Status LastModified by Organization Details LastModified Time None Recorded Payers Encounter Date Sequence Insurance Name Policy Number Policy Navarro Covered Member ID Navarro Member ID Guarantor Name 05/22/2025 2 FOR LIFE ( - MEDICARE SUPPLEMENT) Nanette Jorge [id number] Nanette Jorge 05/22/2025 1 [place]MEDICARE REPLACEMENT HMO) [id number] Nanette Jorge [id number] Nanette Jorge Notes Date Note Type Note Provider Name and Address Organization Details Recorded Time 05/22/2025 text/html ROS as noted in the HPI [...] has rarely been bothering her lately. Rocio Tavera, PHILIP [address] [facility], [place], [address], [facility] [employer] 05/22/2025 12:12:40 OBGyn Episode No OBEpisode recorded.
--- OUTSIDE RECORDS SUMMARY | 2025-08-05 16:20 | XMS_ITS | Clinical Summary ---
Author Organization [facility] Address [address] [place] [address] Phone Care Team Providers Care Rotary Drum Dyer Name Role Phone Rocio Tavera APRN Unavailable [phone] Valdemar CINTRON, Arsh Hinkle Unavailable [phone] Cruz Casiano D.O. Primary Care Provider [phone] Reason for Referral Date Encounter Description Provider Reason for Referral 10/02/23 Physician Specified Flaquito Somers PA-C Referral To Physician Reason for Visit and Chief Complaint The Chief Complaint is: neck pain Problems Includes: Problems addressed during this encounter and other active Problems Current Visit Onset Date Resolved Date Provider Conditio n Status Neck Pain 10/02/2023 Flaquito Lala Active Last Documented On 4 1:20PM ; [facility] Past Visits Onset Date Resolved Date Provider Condition Status Soft Tissue Pain Lower Leg Right 06/11/2020 Arsh Aldrich MD Active Last Documented On 0 10:28AM ; [facility] Plan of Treatment No Plan [...] On 4 1:20PM By Onur Rick ; [facility] methylPREDNISolone 4 MG Oral Tablet Therapy Pack 09/07/2023 Provider: Rocio Tavera APRN Diagnosis: Last Documented On 4 1:20PM By Onur Rick ; [facility] Cyclobenzaprine HCl 5 MG Oral Tablet 08/25/2023 Prov ider: Neda Broderick Diagnosis: Last Documented On 4 1:20PM By Onur Rick ; [facility] predniSONE 10 MG (21) Oral Tablet Therapy Pack 023 Provider: Neda Davie Diagnosis: Last Documented On 4 1:20PM By Onur Rick ; [facility] diazePAM 2 MG Oral Tablet 08/23/2023 Provider: HAVEN SALGADO MD Diagnosis: Last Documented On 4 1:20PM By Onur Rick ; [facility] Past Medications on file Meloxicam 15 MG Oral Tablet 06/21/2020 - 09/19/2020 Pr ovider: Arsh Aldrich MD Diagnosis: Take 1/2 - 1 tablet daily Last Documented On 0 9:11AM By Kimberly Myrick ; [facility] Medications Administered Includes: Administered Medications from this encounter No Administered Medications Recorded Vital Signs Includes: Vital Signs from this encounter Vital Name 10/02/2023 01:47P Height (in) 62 Weight (lb) 170 Body Mass Index 31.1 Body Surface Area 1.8 Pain Level 5 Note: rahul Last Documented: On 10/02/2023 1:47PM ; [facility] Results Includes: Results discussed during this encounter No Results Recorded For Specified Dates History of Present Illness Includes: History of Present Illness from this encounter HPI Nanette Jorge is an 83 year old female. - Symptoms throbbing, popping, grinding moving head makes pain worse. - Allergy list reviewed - Problem list reviewed - Medication list reviewed - Medication list reviewed - Pain is throbbing - Patient pain level from 1-10: 8 - No previous treatment. 83-year-old who is referred here after she went to the emergency room because she has had a lot of neck pain. She had a CT scan that showed advanced cervical arthritis. She has pain in the back of her neck that radiates anterior head gives her difficulty with range of motion of her neck. They gave her a soft collar for comfort. She says ibuprofen really helps but she has on a blood thinner for history of stroke and she says she has told not to take much of it. She does have a history of diabetes. 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 10/02/2023 Last Documented On 4 9:49AM ; [facility] Non-smoker 06/11/2020 Last Documented On 4 1:21PM ; [facility] No caffeine use 06/11/2020 Last Documented On 4 1:21PM ; [facility] No recent change in diet 06/11/2020 Last Documented On 4 1:21PM ; [facility] Not a current smoker. 06/11/2020 Last Documented On 4 1:21PM ; [facility] Not exercising regularly 06/11/2020 Last Documented On 4 1:21PM ; [facility] Not using alcohol 06/11/2020 Last Documented On 4 1:21PM ; [facility] Not using drugs 06/11/2020 Last Documented On 4 1:21PM ; [facility] Smoking Status Unknown Procedures and Surgical History Includes: Procedures from this encounter Procedures Code Diagnosis Performing Provider Service L ocation Service Date use of tobacco assessment performed 1000F Last Documented On 4 1:21PM ; [facility] patient screened for future fall risk: documentation of any fall with injury in past year 1100F Last Documented On 4 1:22PM ; [facility] review of medications documented 1160F Last Documented On 4 1:22PM ; [facility] referral to physician Last Documented On 4 1:21PM ; [facility] Pt received screening for fall risk G8270 Last Documented On 4 1:21PM ; [facility] [place] scan [id number] Last Documented On 4 1:21PM ; [facility] Surgical History Last Updated History of hysterectomy 10/02/2023 Last Documented On 4 9:49AM ; [facility] Medical History Includes: Medical History addressed during this encounter Description Last Updated History of Stroke 10/02/2023 Last Documented On 4 9:49AM ; [facility] Arthritis 06/11/2020 Last Documented On 4 1:21PM ; [facility] History of diabetes mellitus 06/11/2020 Last Documented On 4 1:21PM ; [facility] History of Heart Attack / Stroke 020 Last Documented On 4 1:21PM ; [facility] No recent immunization for flu 0 Last Documented On 4 1:21PM ; [facility] No recent immunization for pneumococcal pneumonia 06/11/2020 Last Documented On 4 1:21PM ; [facility] Family History Includes: Family History addressed during this encounter Description Last Updated No significant family history 06/11/2020 Last Documented On 4 1:21PM ; [facility] Review of Systems Includes: Review of Systems from this encounter Systemic: Not feeling tired, no recent weight loss, and no recent weight gain. Head: Headache. No sinus pain. Eyes: No vision problems, no Cataracts, no Glasses/Contacts, and no Glaucoma. Otolaryngeal: No hearing loss and no tinnitus. Cardiovascular: No chest pain or discomfort, no palpitations, no Hypertension, and no High Cholesterol. Pulmonary: No daytime asthma symptoms and no chronic cough. Wheezing. Gastrointestinal: No heartburn and no abdominal pain. No Indigestion, no Acid Reflux, no Peptic Ulcer, no GI Stomach Bleed, and no Ulcers. Endocrine: No hot flashes and no muscle weakness. Diabetes. No Hypothyroid and no Hyperthyroid. Hematologic: No easy bleeding, no tendency for easy bruising, and no Anemia. Musculoskeletal: Arthritis. No lower back pain. No soft tissue swelling [...] Exam Includes: Physical Exam from this encounter Allergies Includes: Active Allergies No Known Allergies Encounters Encounter Provider Location Date Check-In Time Check-Out Time Diagnosis Physician Specified Flaquito Somers PA-C [facility] 10/02/19 24 1:15PM 2:19PM Insurance Includes: Active Insurance Policies Plan Name Member ID Group # Subscriber Relationship Effect dann Dates 1 - [employer] [place]) Medicare [id number] Nanette Jorge Self 2 - [employer] [id number] Nanette Jorge Self Clinical Notes Includes: Clinical Notes from this encounter * Progress note Date Encounter Last Documented by 10/02/2023 Physician Specified Last shilpa nolasco on 10/04/2023; 9:49 AM, Flaquito Somers PA-C; [facility] Active Problems & Conditions - Neck Pain - Pain in Right Leg Lower Chief Complaint The Chief Complaint is: Neck pain. Referred Here Referred by Self. History of Present Illness Nanette Jorge is an 83 year old female. - Symptoms throbbing, popping, grinding moving head makes pain worse. - Allergy list reviewed - Problem list reviewed - Medication list reviewed - Medication list reviewed - Pain is throbbing - Patient pain level from 1-10: 8 - No previous treatment. 83-year-old who is referred here after she went to the emergency room because she has had a lot of neck pain. She had a CT scan that showed advanced cervical arthritis. She has pain in the back of her neck that radiates anterior head gives her difficulty with range of motion of her neck. They gave her a soft collar for comfort. She says ibuprofen really helps but she has on a blood thinner for history of stroke and she says she has told not to take much of it. She does have a history of diabetes. 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 Immunization History: No recent immunization for flu and not for pneumococcal pneumonia. Diagnoses: History of Heart Attack / Stroke. Diabetes mellitus. Arthritis Surgical: - Hysterectomy Social History Not a current smoker. Not a current smoker. Current diet: No recent change in diet. No recent change in diet. Caffeine use: No caffeine use. Tobacco use: Tobacco non-user and non-smoker. Alcohol: Not using alcohol. Drug Use: Not using drugs. Habits: Not exercising regularly. Allergies - No Known Allergies Family History No significant family history Review Of Systems Systemic: Not feeling tired, no recent weight loss, and no recent weight gain. Head: Headache. No sinus pain. Eyes: No vision problems, no Cataracts, no Glasses/Contacts, and no Glaucoma. Otolaryngeal: No hearing loss and no tinnitus. Cardiovascular: No chest pain or discomfort, no palpitations, no Hypertension, and no High Cholesterol. Pulmonary: No daytime asthma symptoms and no chronic cough. Wheezing. Gastrointestinal: No heartburn and no abdominal pain. No Indigestion, no Acid Reflux, no Peptic Ulcer, no GI Stomach Bleed, and no Ulcers. Endocrine: No hot flashes and no muscle weakness. Diabetes. No Hypothyroid and no Hyperthyroid. Hematologic: No easy bleeding, no tendency for easy bruising, and no Anemia. Musculoskeletal: Arthritis. No lower back pain. No soft tissue swelling and no localized joint pain. Neurological: No dizziness, no convulsions, and no numbness. Psychological: No anxiety, no emotional lability, no depression, and no insomnia. Not crying for no reason. Skin: No dry skin. No Ulcers, no Scars, and no rash. Allergic and Immunologic: No complaint of seasonal allergic reaction. Physical Findings - Vitals taken 10/02/2023 01:47 pm rahul Height 62 in Weight 170 lbs Body Mass Index 31.1 kg/m2 Body Surface Area 1.8 m2 Pain Level 5 Pleasant, alert and oriented x3 No acute distress. She is sitting in a wheelchair today. Nonlabored respirations. Appropriate appearance. She has normal affect. Responds appropriately to questions. No limited hearing No abnormal reflexes of the upper extremities. No long tract findings. No ankle clonus. She is limited range of motion because she has pain with range of motion. 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 No redness rash or bruising on her neck Tests Outside cervical MRI demonstrates advanced degenerative changes throughout the cervical spine with several disc osteophyte complexes that were resulted mild and moderate foraminal narrowing No acute fracture. Assessment cervical spondylosis, cervicalgia Plan: We discussed the conservative plan she is going to try a topical anti-inflammatory. We will give her a smaller soft collar for comfort. Not planning a surgery for this. She is does not have any new neurologic compromise from this. I think she just had an arthritic flare she has a pretty degenerative neck. She is happy with the conservative treatment she said she would rather just treat this with medication in anything aggressive. She does have diabetes so steroid injections might not be the best option for her going in the future. She is in agreement to the treatment plan At this point we will see her back as needed Patient was seen by myself. Dictation by Flaquito Somers PA-C Previous Tests Imaging: CT Scan: CT scan. Therapy - Referral to physician. - Pt received screening for fall risk. Notes This dictation was done with voice recognition software and may contain errors and omissions. Practice Management Use of tobacco assessment performed and patient screened for future fall risk documentation of any fall with injury in past year Review of medications documented. Care Team - Rocio Tavera APRN
--- OUTSIDE RECORDS SUMMARY | 2025-08-05 16:20 | XMS_ITS | Clinical Summary ---
Author Organization [facility] y[facility] Address [address] [place] [address] Care Team Providers Care Director Of Early Childhood Name Role Phone TaveraRocio marc PHILIP Primary Care Provider [phone] Allergies No known active allergies Medications carbidopa-levod opa (SINEMET) 25-250 MG per tablet Take 1 tablet by mouth Daily. Active metFORMIN (GLUCOPHAGE) 500 MG tablet Take 1 tablet by mouth Daily. Active levothyroxine (SYNTHROID, LEVOTHROID) 75 MCG tablet Take 1 tablet by mouth Daily. Active clopidogrel (PLAVIX) 75 MG tablet Take 1 tablet by mouth Daily. 30 tablet 9 Active rOPINIRole (REQUIP) 4 MG tablet Take 2 tablets by mouth 3 (Three) Times a Day. At 1400, 1700, and bedtime Active aspirin 81 MG chewable tablet Chew 1 tablet Daily. OTC Active escitalopram (LEXAPRO) 10 MG tablet Take 1 tablet by mouth Daily. Active traZODone (DESYREL) 50 MG tablet Take 1 tablet by mouth Every Night. 30 tablet 08/26/2022 10:06 AM EST 2 Active atorvastatin (LIPITOR) 80 MG tablet Take 1 tablet by mouth Every Night. 30 tablet 2 Active albuterol sulfate HFA 108 (90 Base) MCG/ACT inhaler Inhale 2 puffs Every 4 (Four) Hours As Needed for Wheezing or Shortness of Air. 18 g 08/26/2022 10:06 AM EST 2 Active Lidocaine 4 % Place 2 patches on the skin as directed by provider Daily. Remove & Discard patch within 12 hours or as directed by MD 4 Active sacubitril-vals sharmaine (ENTRESTO) 97-103 MG tablet Take 1 tablet by mouth 2 (Two) Times a Day. 4 Active bumetanide (Bumex) 1 MG tablet Take 1 tablet by mouth Daily. 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/05/2021 Retrolisthesis 01/05/2021 Renal mass, left 01/05/2021 Chronic edema LLE s/p CVA with residual mild lef t weakness 09/28/2020 Accelerated hypertension 07/14/2019 RLS (restless legs syndrome) 07/14/2019 Hypothyroidism (acquired) 07/14/2019 Mood disorder 11/12/2018 Stenosis of lateral recess of lumbar spine 10/03 Overview (10/03/2017): Added automatically from request for surgery [id number] Status post total right knee replacement 017 Arthritis of knee, right 03/01/2017 Anxiety and depression 03/01/2017 HTN (hypertension) 03/01/2017 Type 2 diabetes mellitus 03/01/2017 Resolved Problems Problem Noted Date Diagnosed Date Resolved Date C. difficile colitis 08/24/2022 022 Delirium 01/07/2022 08/24/2022 Hypomagnesemia 01/07/2022 01/10/2022 AMS (altered mental status) 01/07/2022 01/10/2022 UTI (urinary tract infection) 05/18/2021 08/24/2022 Encephalopathy 05/18/2021 05/18/2021 Acute pyelonephritis 05/18/2021 021 Acute respiratory disease du e to COVID-19 virus 01/04/2021 08/24/2022 Positive D dimer 01/04/2021 08/24/2022 Volume overload 09/28/2020 09/28/2020 Acute hypoxemic respiratory failure 09/27/2020 09/28/2020 Left-sided weakness 07/14/2019 07/14/20 Acute ischemic stroke 07/14/20192020 Headache 07/14/2019 09/27/2020 Hypertensive disorder 11/12/20182021 Hypokalemia, replaced 03/02/20172020 Immunizations Immunization Administration Dates Next Due COVID-19 (STEPHEN) 12/08/2020 Td (TDVAX) 07/04/2001 Family History Medical History Relation Name Comments Heart disease Brother Kidney failure Mother Relation Name Status Comments Brother Alive Father ACCIDENT Mother Social History Tobacco Use Types Packs/Day Years Used Date Smoking Tobacco: Never Passive Smoke Exposure: Current Smokeless Tobacco: Never Tobacco Cessation:Counseling Given: No Alcohol Use Standard Drinks/Week Comments No 0 (1 standard drink = 0.6 oz pur e alcohol) AUDIT-C Answer Date Recorded Q1: How often do you have a drink containing alcohol? Never 09/04/2024 Q2: How many drinks containi ng alcohol do you have on a typical day when you are drinking? Patient does not drink Q3: How often do you have si x or more drinks on one occasion? Never 09/04/2024 Abuse Screen Answer Date Recorded Feels Unsafe at Home or Work/School no 09/04/2024 Feels Threatened by Someone no 08/11 Does Anyone Try to Keep You From Having Contact with Others or Doing Things Outside Your Home? no 09/04/2024 Physical Signs of Abuse Present no 09/04/2024 Housing Stability Answer Date Recorded Current Living Arrangements apartment 08/11 Potentially Unsafe Housing Conditions Not on hannah e 09/04/2024 Disabilities Answer Date Recorded Difficulty Concentrating, Remembering or Making Decisions yes 09/04/2024 Difficulty Managing Errands Independently yes 09/04/2024 Comments No Sex and Gender Information Value Date Recorded Sex Assigned at Not on file Legal Sex Female 1:50 PM EDT Gender Identity Not on file Sexual Orientation Not on file Last Filed Vital Signs Vital Sign Reading Time Taken Comments Blood Pressure 105/58 09/07/2024 11:00 AM EST Pulse 80 09/07/2024 8:32 AM EST Temperature 36.7 C (98.1 F) 09/07/2024 11:00 AM EST Respiratory Rate 18 09/07/2024 11:00 AM EST Oxygen Saturation 90% 09/07/2024 11:00 AM EST Inhaled Oxygen Concentration - - Weight 88.7 kg (195 lb 9.6 oz) 09/07/2024 5:00 A M EST Height 157.5 cm (5' 2 ) 09/04/2024 9:32 AM EST Body Mass Index 35.78 09/04/2024 9:32 AM EST Plan of Treatment Health Maintenance Due Date Last Done Comments DXA SCAN 1941 DIABETIC EYE EXAM 1951 DIABETIC FOOT EXAM 1951 URINE MICROALBUMIN-CREATININ E RATIO (uACR) 1951 Pneumococcal Vaccine 50+ (1 of 2 - PCV) 1960 COLOGUARD 1986 COLON CANCER SCREENING 5 YEA R SIGMOIDOSCOPY 1986 COLONOSCOPY 1986 [address] CANCER SCREENING 1986 CT COLONOGRAPHY 1986 FECAL OCCULT BLOOD TEST 1986 FIT Testing (1 year) 1986 ZOSTER VACCINE (1 of 2) 1991 RSV Vaccine - Adults (1 - 1- dose 75+ series) 2016 ANNUAL WELLNESS VISIT 01/03/2017 COVID-19 Vaccine (2 - Jansse n risk series) 11/23/2021 10/26/2021, 12/08/2020 HEMOGLOBIN A1C 01/05/2025 07/07/2024, 06/11, 11/06/2023, Additional history exists INFLUENZA VACCINE 04/10/2025 TDAP/TD VACCINES (3 - Td or Tdap) 04/15/2031 021, 07/04/2001 Medical Devices Implanted Type Area Manager Cosmetic Device Identifier Shelf Expiration Date Model / Serial / Lot Rods And Screws In Back S/P Lumbar Surgery Implant Bilateral Knee Replacements Implant Cmt Bone Endurance Smartset 40gm - [id number] Implanted:Qty: 1 on 03/01/2017 by Thad Li MD at [facility] Implant DEPUY 10/10/2018 [id number] / / [id number] Cmt Bone Endurance Smartset 40gm - [id number] Implanted:Qty: 1 on 03/01/2017 by Thad Li MD at [facility] Implant [employer]PU[employer] 11/07/2018 [id number] / / [id number] Base Tib Attune Cmt Rp Sz3 - [id number] Implanted:Qty: 1 on 03/01/2017 by Thad Li MD at [facility] Implant DEPUY 12/08/2026 [id number] Comp Fem Attune Cmt Cr Nrw Sz5 Rt - [id number] Implanted:Qty: 1 on 03/01/2017 by Thad Li MD at [facility] Implant [employer]PUY 10/10/2026 [id number] Insrt Tib Attune Rp Cr Sz5 5mm - [id number] Implanted:Qty: 1 on 03/01/2017 by Thad Li MD at [facility] Implant DEPUY 10/10/2021 [id number] Comp Pat Attune Cmt Medl Gena 32mm - [id number] Implanted:Qty: 1 on 03/01/2017 by Thad Li MD at [facility] Implant [employer]PU[employer] 10/10/2021 [id number] Totl Kn Attune Depuy [id number] - [id number] Implanted:Qty: 1 on 03/01/2017 by Thad Li MD at [facility] Implant DEPUY [facility] [id number] / / Procedures Procedure Name Priority Date/Time Associated Diagnosis Comments HEMOGLOBIN A1C Urgent 07/07/2024 7:34 AM EDT from Last 3 Months or Most Recently Relevant to Health Maintenance Results * (ABNORMAL) Hemoglobin A1c (07/07/2024 7:34 AM EDT) Hemoglobin A1C 8.60(H) 4.80 - 5.60 % 07/07/2024 9:34 AM EDT [facility] Blood Venipuncture / Unknown 07/07/2024 7:34 AM EDT 07/07/2024 8:35 AM EDT Narrative [facility] - 07/07/2024 9:34 AM EDT Hemoglobin A1C Ranges: Increased Risk for Diabetes 5.7% to 6.4% Diabetes >= 6.5% Diabetic Goal < 7.0% Sandy Mcdaniel [facility] BLOOD ORDERABLES Final R esult [facility]
[address] [place] [address], from Last 3 Months or Most Recently Relevant to Health Maintenance Insurance [address] [place] [address] MEDICAID [place] Member Subscriber Plan / Payer (Ef fective 2020-Present) Name:Nanette Jorge Relation to Subscriber:Self Name:Nanette Jorge Payer ID:[id number] Group ID:Not on file Type:Not on file Address: [address] [facility] MEDICARE ADVANTAGE O Advance Directives * No CPR (Do Not Attempt to Resuscitate) (Latest Code Status on File) Date Activated Date Inactivated Comments 09/04/2024 3:46 PM 09/07/2024 6:24 PM Question Answer Comments Code Status (Patient has no pulse and is not breathing): No CPR (Do Not Attempt to Resuscitate) Medical Interventions (Patie nt has pulse or is breathing): Limited Support Medical Intervention Limits: No intubation (DNI) * No CPR (Do Not Attempt to Resuscitate) Date Activated Date Inactivated Comments 07/06/2024 9:16 AM 07/08/2024 3:13 PM Question Answer Comments Code Status (Patient has no pulse and is not breathing): No CPR (Do Not Attempt to Resuscitate) Medical Interventions (Patie nt has pulse or is breathing): Limited Support Medical Intervention Limits: No intubation (DNI) * No CPR (Do Not Attempt to Resuscitate) Date Activated Date Inactivated Comments 08/24/2022 3:19 PM 08/26/2022 2:43 PM Question Answer Comments Code Status (Patient has no pulse and is not breathing): No CPR (Do Not Attempt to Resuscitate) Medical Interventions (Patie nt has pulse or is breathing): Full * CPR (Attempt to Resuscitate) Date Activated Date Inactivated Comments 01/07/2022 10:45 PM 01/10/2022 6:30 PM Question Answer Comments Code Status (Patient has no pulse and is not breathing): CPR (Attempt to Resuscitate) Medical Interventions (Patie nt has pulse or is breathing): Full Support Level Of Support Discussed With: Patient * CPR (Attempt to Resuscitate) Date Activated Date Inactivated Comments 05/18/2021 6:25 AM 05/18/2021 12:07 PM Question Answer Comments Code Status (Patient has no pulse and is not breathing): CPR (Attempt to Resuscitate) Medical Interventions (Patie nt has pulse or is breathing): Full Level Of Support Discussed With: Patient Care Teams Director Of Early Childhood Relationship Specialty Start Date End Date Rocio Tavera APRN [address] [place] [address] PCP - General Nurse Practitioner 01/04/21
--- OUTSIDE RECORDS SUMMARY | 2025-08-05 16:20 | XMS_ITS | Continuity of Care Document ---
Author Organization [facility] Address [address] [place] [address] Assessment No assessment recorded. Plan of Treatment Reminders Order Date Submit Date Provider Last Modified By Organization Details Last Modified Time Details Appointments None record ed. Lab None record ed. Referral None record ed. Procedures None record ed. Surgeries None record ed. Imaging None record ed. Medication Orders None record ed. Patient TargetsNo targets recorded. Patient InstructionsNo instructions recorded. Reason for Referral None Reported. Results Created Date Observation Date Name Description Value Unit Range Abnormal Flag Note LastModifiedBy Organization Detail LastModifiedTime 05/22/2005/26/2025 URINE CULTU RELISBETH NE urine culture, routine Final report abnormal Not Available [facility] ([facility]) [address] [place], [address], 05/26/2025 08:14:54 05/22/2005/26/2025 URINE CULTU RELISBETH NE result 1 Klebsi krys pneumo niae [...] ng units per mL Not Available [facility] ([facility]) [address] [facility], [place], [address], 05/26/2025 08:14:54 05/22/2005/26/2025 URINE CULTU RE, ROUTI [...] thopr im/Jay lfa S Not Available [facility] ([facility]) [address] [facility], [place], [address], 05/26/2025 08:14:54 05/22/2005/22/2025 urina lysis , dipst ick Leukocytes Small Not Available [address], [address], 05/22/2025 10:38:12 05/22/2005/22/2025 urina lysis , dipst ick Nitrite negati ve Not Available [address], [address], 05/22/2025 10:38:12 05/22/2005/22/2025 urina lysis , dipst ick Urobilinogen .2 Not Available [address], [address], 05/22/2025 10:38:12 0905/22/2025 urina lysis , dipst ick Protein 100 Not Available [address], [address], 05/22/2025 10:38:12 05/22/2005/22/2025 urina lysis , dipst ick pH 6.0 Not Available [address], [address], 05/22/2025 10:38:12 05/22/2005/22/2025 urina lysis , dipst ick Blood Modera te Not Available [address], [address], 05/22/2025 10:38:12 05/22/2005/22/2025 urina lysis , dipst ick Specific [place] 1.020 Not Available [address], [address], 05/22/2025 10:38:12 05/22/2005/22/2025 urina lysis , dipst ick Ketone Negati ve Not Available [address], [address], 05/22/2025 10:38:12 05/22/2005/22/2025 urina lysis , dipst ick Bilirubin Negati ve Not Available [address], [address], 05/22/2025 10:38:12 05/22/2005/22/2025 urina lysis , dipst ick Glucose Negati ve Not Available [address], [address], 05/22/2025 10:38:12 05/22/2005/22/2025 urina lysis , dipst ick Appearance Clear Not Available [address], [address], 05/22/2025 10:38:12 05/22/20 25 05/22/2025 urina lysis , dipst ick Color Dark Yellow Not Available [address], [address], 05/22/2025 10:38:12 Result Notes None recorded. Problems Name Problem SNOMED Code Status Onset Date Resolution Date Notes Provider Name and Address Organization Details Recorded Time Stomatit is 51550656 Completed 202002/03/2021 Problem Code: K12.1; Problem Code Type: ICD-10; Not Available [facility] 22:47:09 COVID-19 242450560 Completed 202010/06/2021 Problem Code: U07.1; Problem Code Type: ICD-10; Not Available [facility] 22:47:10 Hypothyr oidism 30107616 Active 2020 Not Available [facility] 22:47:08 Hyperten sive disorder 70718410 Active 2020 Problem Code: I10; Problem Code Type: ICD-10; Not Available [facility] 22:47:09 Body mass index 30+ - obesity 177961141 Active 2020 Problem Code: Z68.31; Problem Code Type: ICD-10; Not Available [facility] 22:47:11 Localize d edema 083073739 Completed 202010/06/2021 Problem Code: R60.0; Problem Code Type: ICD-10; Rocio Tavera APRN [address] [place], [address] , [facility] [employer] 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 Completed 202010/06/2021 Problem Code: D37.02; Problem Code Type: ICD-10; Not Available [facility] 22:47:08 Acute stress disorder 04617650 Completed 202010/06/2021 Problem Code: F43.0; Problem Code Type: ICD-10; Not Available [facility] 22:47:09 Moderate major depressi on, single episode 84227987 Completed 202010/06/2021 Problem Code: F32.1; Problem Code Type: ICD-10; Not Available [facility] 22:47:09 Moderate recurren t major depressi on 41693057 Active 2020 Problem Code: F33.1; Problem Code Type: ICD-10; Not Available [facility] 22:47:09 Transien t cerebral ischemia 469370587 Active 2020 Not Available [facility] 22:47:09 Dysuria 41674914 Completed 202010/06/2021 Problem Code: R30.0; Problem Code Type: ICD-10; Rocio Tavera APRN [address] [place], [address] , [employer] 5 08:47:53 Dizzines s and giddines s 155335363 Completed 202010/06/2021 Problem Code: R42; Problem Code Type: ICD-10; Not Available [facility] 22:47:10 Restless legs syndrome 82452142 Active 2021 Problem Code: G25.81; Problem Code Type: ICD-10; Not Available [facility] 22:47:09 Chronic systolic heart failure 581092117 Active 2021 Not Available [facility] 22:47:11 Dysuria 66262751 Completed 202106/02/2022 Problem Code: R30.0; Problem Code Type: ICD-10; Rocio Tavera APRN [address] [place], [address] , [employer] 5 08:47:53 Neck pain 71149629 Active 2022 Neda Broderick PA-C [address] [place], [address] , [employer] 3 12:35:00 Chronic kidney disease stage 4 638754595 Active 2023 Rocio Tavera APRN [address] [place] [address], [address] , [employer] 4 11:44:09 Type 2 diabetes mellitus 06026428 Active 2024 Rocio Tavera APRN [address] [place] [address], [address] , [employer] 5 09:14:40 Problem Notes None recorded. Procedures Surgical History Date Name Laterality Status Provider Name and Address Organization Details Recorded Time 12/27/19 23 Suture/Staple removal completed Rocio Tavera APRN [address] [place] [address], [address], [employer] 12/26/2022 10:56:41 10/27/19 11 Most Recent Mammogram completed Ailyn Dallas [employer] 10/18/2022 12:48:52 Joint Replacement completed [employer] 05/26/2022 11:54:33 Back Surgery completed [employer] 05/26/2022 11:54:45 Hysterectomy completed [facility]. 05/26/2022 11:55:00 Imaging Results None recorded. Procedure [...] Available Not Available Not Avai lable Vitals None Recorded Social History Question Answer Notes LastModified by Organizat ion Details LastModified Time Tobacco Smoking Status Never Smoker TRELL blackburn, [employer] [facility] [employer] 06/02/2022 10:28:22 Do You Have An Advance [...] Or The Highest Degree You Have Received? UL54094-1 Information not available 05/26/2022 Have There Been Any Changes To Your Family Or Social Situation? No Information no t available 05/26/2022 Are There Any Guns Present In Your Home? No Information not available 05/26/2022 Do You Have A Medical Power Of Hostess Party Sales Representative? No Information not available 05/26/2022 What Was [...] Status Question Answer Note LastModified by Organizat [employer] Details LastModified Time Do you use any [...] Status Question Answer Note LastModified by Organizat [employer] Details LastModified Time Do you feel stressed (tense, restless, nervous, or anxious, or unable to sleep at night)? [id number] Information not available 12/15/2024 Do you have difficulty concentrating, remembering or making decisions? No Information no t available 05/26/2022 Family History Relationship Description Onset Age of this Age Resolved Age Notes LastModified by Organization Details LastModified Time Father No current problems or disability [email or web address] Not available 05/12 10:28:13 Mother No current problems or disability [email or web address] Not available 05/12 10:28:13 Medical History Condition [...] PF, 0.5 mL 1 completed Not Available [facility] 05/16/2022 23:01:36 Tdap 1 completed IGGY MYNEAR null, [employer] 08/08/2022 16:05:23 Td (adult), 2 Lf tetanus toxoid, preservative free, adsorbed 1 completed IGGY MYNEAR null, [employer] 08/08/2022 16:05:23 Influenza, high-dose, trivalent, PF 5 completed IGGY MYNEAR null, [employer] 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 Neck pain 59642405 M54.2 MARIAN obtain x ray. She has no neuro deficits today. Muscles are tight. [id number] Rocio Tavera[address] [address] 06/10/2025 12:39:56 06/10/2025 13:25:45 Influenza vaccination given [id number] 9109 Z23 10148936 Health Concerns Section Related Observation LastModified by Organization Detai ls LastModified Time None Recorded Concern Status LastModified by Organization Details LastModified Time None Recorded Payers Encounter Date Sequence Insurance Name Policy Number Policy Navarro Covered Member ID Navarro Member ID Guarantor Name 06/10/2025 2 FOR LIFE ( - MEDICARE SUPPLEMENT) Nanette Jorge [id number] Nanette Jorge 06/10/2025 1 [place] [facility] MEDIBL PLUS (MEDICARE REPLACEMENT HMO) [id number] Nanette Jorge [id number] Nanette Jorge OBGyn Episode No OBEpisode recorded.
--- OUTSIDE RECORDS SUMMARY | 2025-08-05 16:20 | XMS_ITS | Referral Summary ---
Author Organization [employer] ([place], [place], [place], [place], [place]) Address [address] [place] [address] Care Team Providers Care Last Remodeler Repairer Name Role Phone Rocio Tavera APRN Primary Care Provider [phone] Rocio Tavera APRN Unavailable [phone] Allergies No known active allergies Medications Hospital, [...] Date Ernie rded Speak language other than Welsh at home Not on file 09/20/2023 Want [...] 08/23/2023 2:56 AM EST Plan of Treatment Not on file Insurance #[address] [facility] Care Teams Last Remodeler Repairer Relationship Specialty Start Date End Date Rocio Tavera APRN PCP - General Family Medicine 11/29/22 Rocio Tavera APRN Referring Physician Family Medicine 11/29/22
--- OUTSIDE RECORDS SUMMARY | 2025-08-05 16:20 | XMS_ITS | Continuity of Care Document ---
Author Organization [facility] Address [address] [place] [address] Assessment Encounter Date Assessment Date Assessment LastModified by Organization Details LastModified Time 07/22/2025 07/22/2025 Nanette Jorge presented with her [...] Lab HbA1c (hemoglobin A1c), blood 2024 025 [facility], [address] [place] [address], [phone], 09:15:51 Referral None recorded. Procedures None recorded. Surgeries None recorded. Imaging None recorded. Medication Orders Inspra 25 mg tablet 2024 025 [facility], [address] [place] [address], [id number], 16:11:34 fluconazole 150 mg tablet 2024 025 [facility], [address] [place] [address], [address], 16:11:33 Patient TargetsNo targets recorded. Patient InstructionsNo instructions recorded. Reason for Referral None Reported. Results Created Date Observation Date Name Description Value Unit Range Abnormal Flag Note LastModifiedBy Organization Detail LastModifiedTime 07/22/2007/22/2025 HbA1c (hemo globi n A1c), blood HbA1c 8.3 Not Available [address], [address], 07/22/2025 09:12:27 Result Notes None recorded. Problems Name Problem SNOMED Code Status Onset Date Resolution Date Notes Provider Name and Address Organization Details Recorded Time Stomatit is 02447367 Completed 202002/03/2021 Problem Code: K12.1; Problem Code Type: ICD-10; Not Available [facility] COVID-19 515830526 Completed 202010/06/2021 Problem Code: U07.1; Problem Code Type: ICD-10; Not Available [facility]10 Hypothyr oidism 45378556 Active 2020 Not Available [facility] 22:47:08 Hyperten sive disorder 57911281 Active 2020 Problem Code: I10; Problem Code Type: ICD-10; Not Available [facility] 22:47:09 Body mass index 30+ - obesity 617733853 Active 2020 Problem Code: Z68.31; Problem Code Type: ICD-10; Not Available [facility] 22:47:11 Localize d edema 424472970 Completed 202010/06/2021 Problem Code: R60.0; Problem Code Type: ICD-10; Rocio Tavera APRN [address] [place], [address] , [facility] - [employer] 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 94902483 Completed 202010/06/2021 Problem Code: D37.02; Problem Code Type: ICD-10; Not Available [facility] 22:47:08 Acute stress disorder 53112181 Completed 202010/06/2021 Problem Code: F43.0; Problem Code Type: ICD-10; Not Available [facility] 22:47:09 Moderate major depressi on, single episode 80415771 Completed 202010/06/2021 Problem Code: F32.1; Problem Code Type: ICD-10; Not Available [facility] 22:47:09 Moderate recurren t major depressi on 62322789 Active 2020 Problem Code: F33.1; Problem Code Type: ICD-10; Not Available [facility] 22:47:09 Transien t cerebral ischemia 402174190 Active 2020 Not Available [facility] 22:47:09 Dysuria 65383909 Completed 202010/06/2021 Problem Code: R30.0; Problem Code Type: ICD-10; Rocio Tavera APRN [address] [place] [address], [address] , [employer] 08:47:53 Dizzines s and giddines s 825167683 Completed 202010/06/2021 Problem Code: R42; Problem Code Type: ICD-10; Not Available [facility] 22:47:10 Restless legs syndrome 03240866 Active 2021 Problem Code: G25.81; Problem Code Type: ICD-10; Not Available [facility] 22:47:09 Chronic systolic heart failure 812495777 Active 2021 Not Available [facility] 22:47:11 Dysuria 86549178 Completed 202106/02/2022 Problem Code: R30.0; Problem Code Type: ICD-10; Rocio Tavera APRN [address] [place], [address] , [employer] 5 08:47:53 Neck pain 87459309 Active 2022 Neda Broderick PA-C [address] [place] [address], [address] , [employer] 3 12:35:00 Chronic kidney disease stage 4 331051789 Active 2023 Rocio Tavera APRN [address] [place] [address], [address] [place] [address] , [employer] 4 11:44:09 Type 2 diabetes mellitus 22014824 Active 2024 Rocio Tavera APRN [address] [place] [address], [address] [place] [address] , [employer] 5 09:14:40 Problem Notes None recorded. Procedures Surgical History Date Name Laterality Status Provider Name and Address Organization Details Recorded Time 12/27/19 23 Suture/Staple removal completed Rocio Tavera APRN [address] [place] [address], [address] [place] [address], [employer] 12/26/2022 10:56:41 10/27/19 11 Most Recent Mammogram completed Ailyn Dallas [employer] 10/18/2022 12:48:52 Joint Replacement completed [facility] 05/26/2022 11:54:33 Back Surgery completed [employer] 05/26/2022 11:54:45 Hysterectomy completed [employer] 05/26/2022 11:55:00 Imaging Results None recorded. Procedure [...] Available Not Avai lable Vitals Date Recorded Systolic And Diastolic Provider Name and Address Organization Details Last Updated DateTime 07/22/2025 158/84 mm[Hg] Rocio Tavera APRN [address] [place] [address], [address], [employer] 07/22/2025 14:19:01 Date Recorded Body height Body temperature Heart rate Oxygen saturation Systolic And Diastolic Systolic And Diastolic Systolic And Diastolic Provider Name and Address Organization Details Last Updated DateTime 5 152.4 cm 98 [degF] 67 /min 95 % 173/76 mm[Hg] 174/82 mm[Hg] 160/81 mm[Hg] IGGY LOPEZ [employer] 5 09:12:23 Social History Question Answer Notes LastModified by Organizat ion Details LastModified Time Tobacco Smoking Status Never Smoker TRELL [facility] [employer] 06/02/2022 10:28:22 Do You Have An Advance [...] Or The Highest Degree You Have Received? [id number] Information not available 05/26/2022 Have There Been Any Changes To Your Family Or Social Situation? No Information no t available 05/26/2022 Are There Any Guns Present In Your Home? No Information not available 05/26/2022 Do You Have A Medical Power Of Research Fellow? No Information not available 05/26/2022 What Was [...] Functional Status Question Answer Note LastModified by [employer] ion Details LastModified Time Do you use [...] Mental Status Question Answer Note LastModified by [employer] Details LastModified Time Do you feel stressed (tense, restless, nervous, or anxious, or unable to sleep at night)? [id number] Information not available 12/15/2024 Do you have difficulty concentrating, remembering or making decisions? No Information no t available 05/26/2022 Family History Relationship Description Onset Age of this Age Resolved Age Notes LastModified by Organization Details LastModified Time Father No current problems or disability [email or web address] Not available 05/12 10:28:13 Mother No current problems or disability [email or web address] Not available 05/12 10:28:13 Medical History Condition Response ADD/ADHD N Diabetes Y Hospitalizations N Emergency room visit since last appointm ent. N Abuse/Domestic Violence N Hypertension Y Hypothyroidism Y Gynecological History Statement/Question Response Date of Last Pap Smear Most Recent Mammogram 10/27/2010 Obstetrics History GPAL:G 0 P 0 0 0 0 Immunizations Vaccine Type Date Status Note Provider Markus benoit and Address Organization Details Recorded Time COVID-19 vaccine, vector-nr, rS-Ad26, PF, 0.5 mL 1 completed Not Available [facility] 05/16/2022 23:01:36 Tdap 1 completed IGGY MYNEAR null, [employer] [employer] 08/08/2022 16:05:23 Td (adult), 2 Lf tetanus toxoid, preservative free, adsorbed 1 completed IGGY MYNEAR null, [employer] [employer] 08/08/2022 16:05:23 Influenza, high-dose, trivalent, PF 5 completed IGGY MYNEAR null, [employer] 06/10/2025 13:21:50 COVID-19, mRNA, LNP-S, PF, 100 mcg/0.5mL dose or 50 mcg/0.25mL dose 2 completed Not Available [facility] 07/22/2025 09:14:12 Past Encounters Encounter ID Performer Location Encounter Start Date Encounter Closed Date Diagnosis/Indication Diagnosis SNOMED-CT Code Diagnosis ICD10 Code Diagnosis IMO Codes Diagnosis Note [id number] Rocio Tavera APRN [address] [address] 07/22/2025 08:45:23 07/22/2025 09:50:23 Type 2 diabetes mellitus 12572793 E11.22 N18.4 [id number] Continue metformin and Jardiance. A1c is improved! Chronic sy stolic heart failure 795771387 I50.22 Restart low dose Inspra and continue Bumex. Candidiasis of vagina 72 462935 B37.31 Health Concerns Section Related Observation LastModified by Organization Detai ls LastModified Time None Recorded Concern Status LastModified by Organization Details LastModified Time None Recorded Payers Encounter Date Sequence Insurance Name Policy Number Policy Navarro Covered Member ID Navarro Member ID Guarantor Name 07/22/2025 2 FOR LIFE ( - MEDICARE SUPPLEMENT) Nanette Jorge [id number] Nanette Jorge 07/22/2025 1 [place]MEDICARE REPLACEMENT HMO) [id number] Nanette Jorge [id number] Nanette Jorge Notes Date Note Type Note Provider Name and Address Organization Details Recorded Time 07/22/2025 text/html ROS as noted in the HPI [...] received her flu vaccination as scheduled. Rocio Tavera, BILINGUAL HR GENERALIST [address] [facility], [place], [address], [place] - [employer] 07/22/2025 14:20:26 OBGyn Episode No OBEpisode recorded.
--- OUTSIDE RECORDS SUMMARY | 2025-08-05 16:20 | XMS_ITS | Clinical Summary ---
Author Organization [facility] , [facility] Address [address] [place] [address] Phone Care Team Providers Care Agricultural Engineering Technologist Name Role Phone Rocio Tavera APRN Unavailable [phone] Valdemar CINTRON, Arsh Hinkle Unavailable [phone] Cruz Casiano D.O. Primary Care Provider [phone] Reason for Visit and Chief Complaint [Patient Encounter] Problems Includes: Problems addressed during this encounter and other active Problems All Visits Onset Date Resolved Date Provider Condition S tatus Neck Pain 10/02/2023 Flaquito Lala Active Last Documented On 4 1:20PM ; [facility] Soft Tissue Pain Lower Leg Right 06/11/2020 Varun in Manan Aldrich MD Active Last Documented On 0 10:28AM ; [facility], [facility] Plan of Treatment No Plan of [...] On 4 1:20PM By Onur Rick ; [facility], [facility] methylPREDNISolone 4 MG Oral Tablet Therapy Pack 09/07/2023 Provider: Rocio Tavera APRN Diagnosis: Last Documented On 4 1:20PM By Onur Rick ; [facility], [facility] Cyclobenzaprine HCl 5 MG Oral Tablet [...] 4 1:20PM By Onur Rick ; [facility], [facility] Medications Administered Includes: Administered Medications from [...] Location Date Check-In Time Check-Out Time Diagnosis [Patient Encounter] Arsh Aldrich MD 06/10/2020 7:55AM 11:59PM Insurance Includes: Active Insurance Policies Plan Name Member ID Group # Subscriber Relationship Effect adnn Dates 1 - BCBS ([place]) Medicare [id number] Nanette Jorge Self 2 - FOR LIFE [id number] Nanette Jorge Self Clinical Notes Includes: Clinical Notes from this encounter No Clinical Notes Recorded
--- OUTSIDE RECORDS SUMMARY | 2025-08-05 16:20 | XMS_ITS ---
Care Plan - [facility], [facility] Created on: August 05, 2025 Luisito, Nanette R : 1940 Sex: Female Author Organization [facility] , [facility] Address [address] [place] [address] Phone Care Team Providers Care Banquet Coordinator Name Role Phone Rocio Tavera APRN Unavailable [phone] Valdemar CINTRON, Arsh Hinkle Unavailable [phone] Cruz Casiano D.O. Primary Care Provider [phone]
--- OUTSIDE RECORDS SUMMARY | 2025-08-05 16:21 | XMS_ITS | Clinical Summary ---
Author Organization [facility] , [facility] Address [address] [place] [address] Phone Care Team Providers Care Cleaning Team Member Name Role Phone Rocio Tavera APRN Unavailable [phone] Valdemar CINTRON, Arsh Hinkle Unavailable [phone] Cruz Casiano D.O. Primary Care Provider [phone] Reason for Visit and Chief Complaint [Patient Encounter] Problems Includes: Problems addressed during this encounter and other active Problems All Visits Onset Date Resolved Date Provider Condition S tatus Neck Pain 10/02/2023 Flaquito Lala Active Last Documented On 4 1:20PM ; [facility], [facility] Soft Tissue Pain Lower Leg Right 06/11/2020 Varun lucille Aldrich MD Active Last Documented On 0 10:28AM ; [facility], [facility] Plan of Treatment No Plan of Treatment Recorded Assessments Includes: Assessments from this encounter No Assessments Recorded Medical Equipment - Implanted Devices Includes: Current Devices No Medical Equipment Recorded Medications Includes: Medications discussed during this encounter and other current Medications New / Renewed during this visit Arsh Aldrich MD on 06/21/2020 Meloxicam 15 MG Oral Tablet Provider: Arsh Aldrich MD 30 day supply: 30 tablet, 2 refills Diagnosis: Take 1/2 - 1 tablet daily Pharmacy: [facility] - [address] , [facility], [address] - Last Documented On 0 9:11AM By Kimberly Hallman [facility] Current Medications (continue as prescribed) Gabapentin 300 MG Oral Capsule 09/07/2023 Provider: Rocio Tavera APRN Diagnosis: Last Documented On 4 1:20PM By Onur Rick ; [facility] methylPREDNISolone 4 MG Oral Tablet Therapy Pack [...] By Onur Rick ; [facility] Medications Administered Includes: Administered Medications from this [...] Time Diagnosis [Patient Encounter] Arsh Aldrich MD 06/21/2020 9:09AM 11:59PM Insurance Includes: Active Insurance Policies Plan Name Member ID Group # Subscriber Relationship Effect dann Dates 1 - BCBS ([place]) Medicare [id number] Nanette R Luisito Self 2 - FOR LIFE [id number] Nanette R Luisito Self Clinical Notes Includes: Clinical Notes from this encounter No Clinical Notes Recorded
--- NOTE | 2025-08-05 16:24 | PC.NURSE ---
FSBS was 196
--- NOTE | 2025-08-05 16:26 | CT_ITS ---
PROCEDURE INFORMATION: Exam: CT Head Without Contrast Exam date and time: 08/05/2025 4:43 PM Age: 85 years old Clinical indication: Other: Sudden onset weakness TECHNIQUE: Imaging protocol: Computed tomography of the head without contrast. Radiation optimization: All CT scans at this facility use at least one of these dose optimization techniques: automated exposure control; mA and/or kV adjustment per patient size (includes targeted exams where dose is matched to clinical indication); or iterative reconstruction. COMPARISON: No relevant prior studies available. FINDINGS: Brain: No intracranial hemorrhage. Mild atrophic changes of the ventricles and subarachnoid spaces. Mild chronic small-vessel ischemic changes noted. No mass, mass effect or midline shift. Intracranial atherosclerotic changes are noted. Cerebral ventricles: See Brain finding. Paranasal sinuses: Visualized sinuses are unremarkable. No fluid levels. Mastoid air cells: Visualized mastoid air cells are well aerated. Bones: Unremarkable. No acute fracture. Soft tissues: Unremarkable. IMPRESSION: No acute intracranial abnormality. Chronic changes as above.
--- NOTE | 2025-08-05 16:26 | XR_ITS ---
PROCEDURE INFORMATION: Exam: XR Chest Exam date and time: 08/05/2025 4:46 PM Age: 85 years old Clinical indication: Dyspnea TECHNIQUE: Imaging protocol: Radiologic exam of the chest. Views: 1 view. COMPARISON: No relevant prior studies available. FINDINGS: Lungs: Unremarkable. No consolidation. Pleural spaces: Unremarkable. No pleural effusion. No pneumothorax. Heart/Mediastinum: Unremarkable. No cardiomegaly. Bones/joints: Unremarkable. IMPRESSION: No acute findings.
[2025-08-05 16:41] LABS: Lactate Venous 1.9 mmol/L (0.4-2.0); VBG HCO3 19.7 mmol/L (23-30); VBG PCO2 35.2 mmol/L (35-51); VBG PH 7.37 mmol/L (7.31-7.41); VBG PO2 73.2 mmol/L (28-40)
[2025-08-05 16:42] LABS: Hematocrit 36.6 % (37.0-47.0); Hemoglobin 11.7 g/dL (12.2-16.2); Immature Granulocytes % 0.1 %; Mean Corpuscular HGB Conc 32.0 g/dL (31.8-35.4); Mean Corpuscular Hemoglobin 27.4 pg (27.0-31.2); Mean Corpuscular Volume 85.7 fl (81-99); Nucleated Red Blood Cells % 0 %; Platelet Count 186 K/mm3 (142-424); Red Blood Count 4.27 M/mm3 (4.20-5.40); Red Cell Distribution Width-SD 47.4 fL; White Blood Count 7.0 K/mm3 (4.8-10.8)
--- NOTE | 2025-08-05 16:43 | HMH.EDGENADL ---
Discharge Plan Disposition Patient Disposition: Admitted Condition: Fair Clinical Impressions Clinical Impression: Weakness Discharge ED Provider: Warren Doty Adult HPI General Chief complaint: Shortness of Breath/Dyspnea Stated complaint: shortness of breath Time Seen by Provider: 08/05/25 16:16 Mode of Arrival: EMS Source of Information: Patient Description of Symptoms (Recalled from ER Triage Doc. by RN): Patient states she began feeling short of breath and shaking all over about 2 hours ago. Patient given 60 mg Solu-medrol IV and 4 mg Zofran for vomiting prior to arrival by EMS. Patient denies cough or fever lately. History of Present Illness HPI narrative: This is an 85-year-old female patient, with past medical history of hypertension, hypothyroidism, hyperlipidemia, congestive heart failure, and prior strokes with left-sided deficits, who is presented to the emergency department today for evaluation of sudden onset weakness. Her son states that she lives in an apartment complex by herself. He states that he visited her in the early afternoon hours and she was behaving appropriately and was sitting in her chair watching TV and coloring in her coloring book. This afternoon the patient states that while sitting in her chair she developed sudden onset weakness that is so profound that she feels difficulty moving her arms and legs and opening her eyes. She states that she does feel a sensation of air hunger but she has not had cough or production of phlegm. She states that she has chronic bilateral lower extremity edema that has worsened over a period of months. She is not having chest pain, headaches, and she denies focal weakness beyond her pre-existing left-sided deficits from her prior stroke. She is not having abdominal pain, nausea, vomiting, or diarrhea. When her son arrived to the hospital he tells me that she takes gabapentin but the patient tells me that she does not believe that she took any extra gabapentin today. Related Data Home Medications ?Medication ?Instructions ?Recorded ?Confirmed bumetanide 1 mg tablet 1 mg PO BID 08/05/25 08/05/25 carvedilol 6.25 mg tablet 6.25 mg PO DAILY 08/05/25 08/05/25 empagliflozin 10 mg tablet 10 mg PO DAILY 08/05/25 08/05/25 (Jardiance) eplerenone 25 mg tablet (Inspra) 12.5 mg PO DAILY 08/05/25 08/05/25 hydralazine 25 mg tablet 25 mg PO BID 08/05/25 08/05/25 levothyroxine 75 mcg tablet 75 mcg PO DAILY 08/05/25 08/05/25 (Synthroid) metformin 500 mg tablet 500 mg PO DAILY 08/05/25 08/05/25 ropinirole 4 mg tablet 4 mg PO TID 08/05/25 08/05/25 sacubitril 97 mg-valsartan 103 mg 1 tab PO BID 08/05/25 08/05/25 tablet (Entresto) Allergies Allergy/AdvReac Type Severity Reaction Status Date / Time No Known Allergies Allergy Unverified 08/28/17 14:06 [facility] Disclaimer: The information contained in this section may have been updated after the patient was seen, as this information can be updated by other users. Medical History (Updated 08/05/25 @ 23:21 by Yamilka Edgar RN) DMII (diabetes mellitus, type 2) Restless leg syndrome CHF (congestive heart failure) Social History Smoking Status: Never smoker alcohol intake: never current occupational status: other Travel in the last 8 weeks?: None ROS Obtained: Yes Systems reviewed as appropriate & no additional complaints except as documented Physical Exam General General appearance: other (See MDM) Respiratory Respiratory exam: Present other (See MDM) Cardiovascular Cardiovascular exam: Present other (See MDM) Neurological Exam Neurological exam: Present other (See MDM) Medical Decision Making Medical Records Medical records reviewed: Yes I reviewed the patient's medical records. Screening: Per USPSTF and CDC recommendations, given the prevalence of disease in our region, it is our hospital?s policy to screen for HIV and viral Hepatitis for all patients aged 18 and over and those with ongoing risk factors. Juan Inquiry Pt receiving controlled substance: No Juan was queried for this patient: No Vital Signs: 08/05/25 16:19 08/05/25 16:22 08/05/25 16:29 Temperature 98.5 F Temperature Source Oral Pulse Rate 96 H Pulse Rate [Right Brachial] 90 Respiratory Rate 17 21 Blood Pressure Blood Pressure [Right Arm] 139/65 Blood Pressure Mean Blood Pressure Mean [Right Arm] 89 Blood Pressure Source Blood Pressure Source [Right Arm] Automatic Cuff Blood Pressure Position Blood Pressure Position [Right Arm] Sitting 02 Sat by Pulse Oximetry 88 L 88 L Oxygen Delivery Method Room Air Room Air Oxygen Flow Rate (LPM) 2 08/05/25 16:30 08/05/25 16:32 08/05/25 16:32 Temperature Temperature Source Pulse Rate Pulse Rate [Right Brachial] Respiratory Rate 23 22 Blood Pressure 138/50 L Blood Pressure [Right Arm] Blood Pressure Mean 76 Blood Pressure Mean [Right Arm] Blood Pressure Source Blood Pressure Source [Right Arm] Blood Pressure Position Blood Pressure Position [Right Arm] 02 Sat by Pulse Oximetry Oxygen Delivery Method Oxygen Flow Rate (LPM) 08/05/25 16:49 08/05/25 17:00 08/05/25 17:00 Temperature Temperature Source Pulse Rate 91 H 93 H Pulse Rate [Right Brachial] Respiratory Rate 17 18 Blood Pressure 141/59 H Blood Pressure [Right Arm] Blood Pressure Mean 69 Blood Pressure Mean [Right Arm] Blood Pressure Source Blood Pressure Source [Right Arm] Blood Pressure Position Blood Pressure Position [Right Arm] 02 Sat by Pulse Oximetry 92 L Oxygen Delivery Method Nasal Cannula Oxygen Flow Rate (LPM) 2 08/05/25 17:15 08/05/25 17:30 08/05/25 17:30 Temperature Temperature Source Pulse Rate 84 84 Pulse Rate [Right Brachial] Respiratory Rate 20 19 Blood Pressure 114/55 L Blood Pressure [Right Arm] Blood Pressure Mean 79 Blood Pressure Mean [Right Arm] Blood Pressure Source Blood Pressure Source [Right Arm] Blood Pressure Position Blood Pressure Position [Right Arm] 02 Sat by Pulse Oximetry 94 L 92 L Oxygen Delivery Method Nasal Cannula Nasal Cannula Oxygen Flow Rate (LPM) 2 2 08/05/25 18:00 08/05/25 18:30 08/05/25 19:00 Temperature Temperature Source Pulse Rate 86 81 Pulse Rate [Right Brachial] Respiratory Rate 19 19 Blood Pressure 128/56 L 125/61 119/54 L Blood Pressure [Right Arm] Blood Pressure Mean 73 Blood Pressure Mean [Right Arm] Blood Pressure Source Blood Pressure Source [Right Arm] Blood Pressure Position Blood Pressure Position [Right Arm] 02 Sat by Pulse Oximetry 92 L 93 L Oxygen Delivery Method Nasal Cannula Nasal Cannula Oxygen Flow Rate (LPM) 2 2 08/05/25 19:15 08/05/25 19:30 08/05/25 19:30 Temperature Temperature Source Pulse Rate 86 83 Pulse Rate [Right Brachial] Respiratory Rate 23 18 Blood Pressure 119/55 L Blood Pressure [Right Arm] Blood Pressure Mean 63 Blood Pressure Mean [Right Arm] Blood Pressure Source Blood Pressure Source [Right Arm] Blood Pressure Position Blood Pressure Position [Right Arm] 02 Sat by Pulse Oximetry 95 93 L Oxygen Delivery Method Nasal Cannula Nasal Cannula Oxygen Flow Rate (LPM) 2 2 08/05/25 19:45 08/05/25 19:46 08/05/25 20:00 Temperature Temperature Source Pulse Rate 82 74 Pulse Rate [Right Brachial] Respiratory Rate 24 24 Blood Pressure Blood Pressure [Right Arm] Blood Pressure Mean Blood Pressure Mean [Right Arm] Blood Pressure Source Blood Pressure Source [Right Arm] Blood Pressure Position Blood Pressure Position [Right Arm] 02 Sat by Pulse Oximetry 94 L 92 L Oxygen Delivery Method Nasal Cannula Nasal Cannula Nasal Cannula Oxygen Flow Rate (LPM) 2 2 2 08/05/25 20:00 08/05/25 20:00 08/05/25 20:15 Temperature 98.5 F Temperature Source Oral Pulse Rate 79 Pulse Rate [Right Brachial] 80 Respiratory Rate 16 17 Blood Pressure 119/54 L Blood Pressure [Right Arm] 119/54 L Blood Pressure Mean 71 Blood Pressure Mean [Right Arm] 75 Blood Pressure Source Blood Pressure Source [Right Arm] Automatic Cuff Blood Pressure Position Blood Pressure Position [Right Arm] Supine 02 Sat by Pulse Oximetry 93 L 93 L Oxygen Delivery Method Nasal Cannula Nasal Cannula Oxygen Flow Rate (LPM) 2 2 08/05/25 20:22 Temperature 98.5 F Temperature Source Oral Pulse Rate 79 Pulse Rate [Right Brachial] Respiratory Rate 18 Blood Pressure 119/54 L Blood Pressure [Right Arm] Blood Pressure Mean Blood Pressure Mean [Right Arm] Blood Pressure Source Automatic Cuff Blood Pressure Source [Right Arm] Blood Pressure Position Sitting Blood Pressure Position [Right Arm] 02 Sat by Pulse Oximetry Oxygen Delivery Method Nasal Cannula Oxygen Flow Rate (LPM) 2 Lab Data Lab Results 08/05/25 16:30: Magnesium 1.5 L 08/05/25 16:32: WBC 7.0, RBC 4.27, Hgb 11.7 L, Hct 36.6 L, MCV 85.7, MCH 27.4, MCHC 32.0, RDW 15.1, Plt Count 186, MPV 11.0 H, Neut % (Auto) 88.1 H, Lymph % (Auto) 9.9 L, Faulkner % (Auto) 1.3 L, Eos % (Auto) 0.3, Baso % (Auto) 0.3, Neut # (Auto) 6.2, Lymph # (Auto) 0.7, Faulkner # (Auto) 0.1, Eos # (Auto) 0.0, Baso # (Auto) 0.0, D-Dimer 3.72 H, Sodium 134 L, Potassium 3.3 L, Chloride 106, Carbon Dioxide 20 L, Anion Gap 11.3, BUN 28 H, Creatinine 1.20 H, Estimated Creat Clear 42, Estimated GFR 43 L, Est GFR ( Amer) 52 L, Glucose 203 H, Calcium 9.3, Total Bilirubin 1.0, AST 29, ALT 20, Alkaline Phosphatase 155 H, Troponin I 0.02, NT-Pro-B Natriuret Pep 680 H, Total Protein 7.9, Albumin 4.0, Globulin 3.9 H, Albumin/Globulin Ratio 1.0 L, Lipase 53, TSH 6.49 H, Free T4 1.30 08/05/25 16:35: VBG pH 7.37, VBG pCO2 35.2, VBG pO2 73.2 H, VBG HCO3 19.7 L, VBG Total CO2 20.8 L, VBG O2 Saturation 94.3 H, VBG Base Excess -5.6 L, VBG Lactic Acid 1.9 08/05/25 18:46: SARS-CoV-2 (PCR) Not detected, Influenza Type A (PCR) Not detected, Influenza Type B (PCR) Not detected, RSV (PCR) Not detected, Rhinovirus (PCR) Not detected 08/05/25 19:17: Troponin I 0.22 H 08/05/25 16:32 08/05/25 16:32 Orders (Tests/Meds): ED MEDICATIONS Generic Name Dose Route Start Last Admin Trade Name Mianq PRN Reason Stop Dose Admin Bumetanide 1 mg 08/06/25 09:00 Bumetanide 1 Mg Tablet PO 09/05/25 08:59 BID [facility] Enoxaparin Sodium 40 mg 08/06/25 09:00 Enoxaparin 40mg/0.4ml Syringe SUBCUT 09/05/25 08:59 DAILY [facility] Insulin Human Lispro 0 unit 08/06/25 06:00 Humalog 100 Units/Ml 10ml Vial (Ssi) SUBCUT 09/05/25 05:59 ACHS [facility] Protocol Levothyroxine Sodium 75 mcg 08/06/25 09:00 Levothyroxine 75mcg (0.075mg) Tab PO 09/05/25 08:59 DAILY JOSEPHINE Non-Formulary Medication 1 tab 08/06/25 09:00 Sacubitril-Valsartan [Entresto] PO 09/05/25 08:59 BID JOSEPHINE Ropinirole HCl 4 mg 08/06/25 09:00 08/05/25 22:40 Ropinirole 1mg Tablet PO 09/05/25 08:59 4 mg TID JOSEPHINE Administration Discontinued Medications Generic Name Dose Route Start Last Admin Trade Name Freq PRN Reason Stop Dose Admin Magnesium Sulfate 2 gm in 50 mls @ 50 mls/hr 08/05/25 18:20 08/05/25 20:01 Magnesium Sulfate 2gm/50ml Premix IV 08/05/25 19:19 Infused ONCE ONE Infusion Iopamidol 70 ml 08/05/25 17:50 08/05/25 17:58 Iopamidol-370 (76%);100ml Bottle IV 08/05/25 17:51 70 ml ONCE ONE Administration Potassium Chloride 40 meq 08/05/25 18:20 08/05/25 18:40 Potassium Chloride 20meq/15ml Udc PO 08/05/25 18:21 40 meq ONCE ONE Administration Sodium Chloride 10 ml 08/05/25 17:50 08/05/25 17:58 Sodium Chloride 0.9% 10ml Syr (Rad Only) IV 08/05/25 17:51 10 ml ONCE ONE Administration Sodium Chloride 50 ml 08/05/25 17:50 08/05/25 17:58 0.9 % Sodium Chloride 50 Ml Vial IV 08/05/25 17:51 50 ml ONCE ONE Administration ORDERS Category Date Time Status CT angio chest PE protocol Stat Cat Scan 08/05/25 17:[address] head/brain wo con Stat Cat Scan 08/05/25 16:26 Completed CXR --portable [XR chest portable] Stat Exams 08/05/25 16:26 Completed BNP [NT Pro Brain Natriuretic Pep.] Stat Lab 08/05/25 16:32 Completed CBC w/Auto Diff [Complete Blood Count Auto Diff] Stat Lab 08/05/25 16:32 Completed CMP [Comprehensive Metabolic Panel] Stat Lab 08/05/25 16:32 Completed D-Dimer Stat Lab 08/05/25 16:32 Completed Free T4 (Free Thyroxine) Stat Lab 08/05/25 16:32 Completed Lipase Stat Lab 08/05/25 16:32 Completed Magnesium Stat Lab 08/05/25 16:30 Completed Mini Respiratory Panel Stat Lab 08/05/25 18:46 Completed TSH [Thyroid Stimulating Hormone] Stat Lab 08/05/25 16:32 Completed Troponin I Q3H Lab 08/05/25 19:17 Completed Troponin I Q3H Lab 08/05/25 23:17 Completed Troponin I Stat Lab 08/05/25 16:32 Completed UDS [Drug Screen,Urine] Stat Lab 08/05/25 23:56 Results Urinalysis and Microscopic Stat Lab 08/05/25 23:56 Completed Urine Culture Stat Micro 08/05/25 23:56 Received VBG [Venous Blood Gas] Stat RT 08/05/25 16:35 Completed Medical Decision Narrative: In summary, this is an 85-year-old female patient who is presenting to the emergency department today for sudden profound generalized weakness. The patient has a past medical history including hypertension, hypothyroidism, prior strokes with left-sided deficits, and congestive heart failure. She is on clopidogrel as an antiplatelet agent. On initial evaluation of the patient she appears very tired and weak appearing. She can resist gravity with her bilateral upper and lower extremities, however her left side does appear to be slightly weaker than the right which her son states is her baseline. She does have hyperesthesia of the left upper extremity and left lower extremity which she also states is her baseline. Her heart and lungs sound clear bilaterally. She has no abdominal tenderness to palpation. She does have ptosis bilaterally as well. She is hypoxic and it is necessitating 2 L of oxygen to maintain saturations. Differential diagnosis includes ACS/NC, heart failure exacerbation, hypercapnic respiratory failure, diabetic ketoacidosis, intracranial hemorrhage, COVID, flu, other viral syndrome, urinary tract infection, gabapentin overuse, electrolyte derangement, acute kidney injury, among others. Workup was initiated with hematologic labs as well as an EKG, chest x-ray, and CT scan of the head without contrast. EKG was personally interpreted by me and demonstrates normal sinus rhythm at a rate of 90 bpm, normal axis, no MO prolongation, narrow QRS, no QTc prolongation. No ST elevation. 1 hour later we obtained a repeat EKG that was personally interpreted by me and demonstrated normal sinus rhythm at a rate of 86 bpm, normal axis, no MO prolongation, narrow QRS, no QTc prolongation. No ST elevation or depression. No overt signs of ischemia or arrhythmia Labs were personally interpreted by me and demonstrate anemia with a hemoglobin of 11.7 and hematocrit of 36. No leukocytosis. VBG is largely unremarkable. CMP shows hypokalemia as well as hypomagnesemia. Otherwise there are no acute derangements on CMP. The patient's initial troponin was 0.2. We will pend a second troponin. Additionally, the patient's D-dimer is significantly elevated at 3.72 therefore we will proceed with a CT PE study CT head was personally turbid by me and demonstrates no large intracranial hemorrhages. Official radiology read is in agreement and states there is no acute abnormality. Additionally, CT PE study was personally turbid by me and demonstrates no large saddle pulmonary embolus. Official radiology read is in agreement and states that there is no acute abnormality. They do note that there are incidental liver cyst noted. At this time the patient's urinalysis and urine drug screen were pending. Her second troponin was also pending. However, the patient is profoundly weak and this was so sudden in onset that I do not believe that she can go home. Therefore I had an interactive discussion with the internal medicine service who agreed to evaluate the patient the emergency department. After our discussion of their evaluation they agreed to admit the patient to their service and except primary responsibility the patient moving forward. We will allow them to follow-up on her second troponin as well as her urinalysis Critical Care Critical Care Time Critical Care Time: No
[2025-08-05 17:07] LABS: Alanine Aminotransferase 20 U/L (12-78); Albumin Level 4.0 g/dl (3.5-5.0); Albumin/Globulin Ratio 1.0 (1.1-1.8); Alkaline Phosphatase 155 U/L (38-126); Anion Gap 11.3 mEq/L (5-15); Aspartate Amino Transferase 29 U/L (14-36); Bilirubin,Total 1.0 mg/dl (0.2-1.3); Blood Urea Nitrogen 28 mg/dl (7-17); Calcium 9.3 mg/dl (8.4-10.2); Carbon Dioxide 20 mmol/L (22.0-30.0); Chloride 106 mmol/L (98-107); Creatinine Clearance Estimated 42 mL/min (50-200); Creatinine,Serum 1.20 mg/dl (0.52-1.04); Estimated Glomerular Filt Rate 43 ml/min (>60); GFR (African American) 52 ML/MIN (>60); Globulin 3.9 g/dL (1.3-3.2); Glucose 203 mg/dl (74-100); Lipase 53 U/L (23-300); Potassium 3.3 mmoL/L (3.5-5.1); Sodium 134 mmol/L (136-145); Total Protein,Serum 7.9 g/dl (6.3-8.2)
[2025-08-05 17:15] LABS: NT Pro Brain Natriuretic Pep. 680 pg/mL (0-450)
[2025-08-05 17:18] LABS: Troponin I 0.02 ng/ml (0.00-0.034)
[2025-08-05 17:35] LABS: Free T4 (Free Thyroxine) 1.30 ng/dl (0.78-2.19)
[2025-08-05 17:37] LABS: D-Dimer 3.72 ug/mL (0.0-0.5)
--- NOTE | 2025-08-05 17:41 | CT_ITS ---
PROCEDURE INFORMATION: Exam: CTA Chest With Contrast Exam date and time: 08/05/2025 5:49 PM Age: 85 years old Clinical indication: Abnormal findings; Other: Dimer 3.72 TECHNIQUE: Imaging protocol: Computed tomographic angiography of the chest with contrast. Exam focused on the arteries. 3D rendering (Not supervised by radiologist): MIP and/or 3D reconstructed images were created by the technologist. Radiation optimization: All CT scans at this facility use at least one of these dose optimization techniques: automated exposure control; mA and/or kV adjustment per patient size (includes targeted exams where dose is matched to clinical indication); or iterative reconstruction. Contrast material: ISO; Contrast volume: 75 ml; Contrast route: INTRAVENOUS (IV); COMPARISON: CR XR CHEST PORTABLE 08/05/2025 4:46 PM FINDINGS: Pulmonary arteries: Evaluation of the segmental pulmonary artery branches is limited by excessive motion artifact and cannot be evaluated for subtle acute emboli. Central pulmonary arteries are free of emboli. Aorta: Atherosclerotic changes of the thoracic aorta. Aorta normal caliber. No evidence of aneurysm or dissection. Lungs: Posterior lower lobe atelectasis. Lung rebolledo otherwise clear. Pleural spaces: Unremarkable. No pneumothorax. No pleural effusion. Heart: Heart size mildly enlarged. Coronary arteries: Moderate coronary artery calcifications suggesting coronary artery disease. Lymph nodes: Unremarkable. No enlarged lymph nodes. Liver: Scattered hepatic cysts are noted largest in the dome of the liver measuring 10.7 cm. Incidental rim-like calcifications in the dome of the liver just lateral to the above described dominant cyst that might reflect a calcified cyst or some other dystrophic calcification. Kidneys: Multiple left renal cysts. No follow-up advised. Bones/joints: Unremarkable. No acute fracture. Soft tissues: Unremarkable. IMPRESSION: 1. Evaluation of the segmental pulmonary artery branches is limited by excessive motion artifact and cannot be evaluated for subtle acute emboli. Central pulmonary arteries are free of emboli. 2. Moderate coronary artery calcifications suggesting coronary artery disease. COMMENTS: Consistent with the [employer]'s Incidental Findings Committee white paper (J [employer] Rut [employer]iol 2018): Any incidental renal lesion less than 1 cm or classified as too small to characterize, or any incidental cystic renal lesion characterized as simple-appearing, is likely benign. No follow-up imaging is recommended for these lesions per consensus recommendations based on imaging criteria.
[2025-08-05 17:42] LABS: Magnesium 1.5 mg/dl (1.6-2.3)
--- NOTE | 2025-08-05 17:45 | ECG_ITS ---
APPROVED REPORT Exam: Resting ECG HR:86 bpm ECG Measurements Heart Rate 86 AXES [place] 178 P 39 QRSd 109 QRS 17 QT 389 T 30 QTc 433 Conclusion SINUS RHYTHM NORMAL ECG Electronically signed by : JUAN C NGUYỄN, 08/06/2025 14:00:13
[2025-08-05 17:49] LABS: Thyroid Stimulating Hormone 6.49 uIU/mL (0.465-4.68)
[2025-08-05] MEDS: IOPAMIDOL-370 (76%);100ML BOTTLE 70 ML IV (17:58)
[2025-08-05] MEDS: 0.9 % SODIUM CHLORIDE 50 ML VIAL IV (17:58)
[2025-08-05] MEDS: SODIUM CHLORIDE 0.9% 10ML SYR (RAD ONLY) 10 ML IV (17:58)
[2025-08-05] MEDS: MAGNESIUM SULFATE IN WATER 2 GM/50 ML PIGGYBACK IV (18:38)
[2025-08-05] MEDS: POTASSIUM CHLORIDE 20MEQ/15ML UDC 40 MEQ PO (18:40)
[2025-08-05 18:49] LABS: Coronavirus 19, PCR Not Detected (NotDetected); Influenza A, PCR Not Detected (NotDetected); Influenza B, PCR Not Detected (NotDetected)
--- NOTE | 2025-08-05 19:29 | PC.NURSE ---
Called [facility] for bed request for generalized weakness.
[2025-08-05 19:49] LABS: Troponin I 0.22 ng/ml (0.00-0.034)
--- NOTE | 2025-08-05 20:26 | PC.NURSE ---
Patient arrived to floor via stretcher from ED at 20:25.
[2025-08-05] MEDS: ROPINIROLE 1MG TABLET 4 MG PO (22:40)
[2025-08-05 23:54] LABS: Troponin I 0.47 ng/ml (0.00-0.034)
[2025-08-06] VITALS (11 sets, daily range): BP systolic 96–139; BP diastolic 54–84; PULSE 47–71; RESP 15–18; TEMP 36.7–36.8; O2SAT 93–98; BMI 32.1
[2025-08-06 00:03] LABS: Microscopic, Urine URINE MICROSCOPIC (MICROSCOPIC)
[2025-08-06 00:13] LABS: Bilirubin,Urine Negative (Negative); Color,Urine YELLOW (Yellow); Glucose,Urine (UA) 3+ (Negative); Ketones,Urine TRACE (Negative); Leukocyte Esterase,Urine Negative (Negative); PH,Urine 5.5 (5.0-8.5); Protein,Urine 1+ (Negative); Specific Gravity, Urine 1.010 (1.005-1.030); Urobilinogen,Urine 0.2 EU/dl (0.2)
[2025-08-06 00:16] LABS: Bacteria,Urine 2+ /lpf; Squamous Epithelial Cell,Urine Occasional #/hpf (0-5)
[2025-08-06 00:25] LABS: Barbiturates Screen,Urine Negative ng/ml (<200)
[2025-08-06 00:26] LABS: Amphetamine/Metha Screen,Urine Negative ng/ml (<1000)
[2025-08-06 00:27] LABS: Methadone Screen,Urine Negative ng/ml (<300)
[2025-08-06 00:28] LABS: Opiate Screen,Urine Negative ng/ml (<300); Phencyclidine Screen,Urine Negative ng/ml (<25)
[2025-08-06 00:49] LABS: Adenovirus,PCR Not Detected (NotDetected); Chlamydophila Pneumoniae, PCR Not Detected (NotDetected); Coronavirus 19, PCR Not Detected (NotDetected); Coronovirus HKU1,PCR Not Detected (NotDetected); Influenza A, PCR Not Detected (NotDetected); Influenza AH1, 2009 Not Detected (NotDetected); Influenza AH1, PCR Not Detected (NotDetected); Influenza AH3,PCR Not Detected (NotDetected); Influenza B, PCR Not Detected (NotDetected); Mycoplasma Pneumoniae, PCR Not Detected (NotDetected); Parainfluenza 1, PCR Not Detected (NotDetected); Parainfluenza 2, PCR Not Detected (NotDetected); Parainfluenza 3, PCR Not Detected (NotDetected); Parainfluenza 4, PCR Not Detected (NotDetected)
--- NOTE | 2025-08-06 01:44 | P.HP_ITS ---
<Statement entered by Jay Palomares MD - 08/06/25 12:08> Rounded on patient after nurse practitioner. Personally examined and interviewed patient. Agree with exam findings and care plan as documented. Strong concern her symptoms are more related to cardiac etiology than her UTI. Extensive discussion with patient on rounds about cardiac evaluation. Amenable to proceeding with heart cath. History of Present Illness *Admission Date: 08/05/25 *Reason for visit:: Weakness *History of present illness: Nanette Jorge is a 85-year-old female past medical significant for diabetes mellitus type 2, congestive heart failure, restless leg syndrome, hypothyroidism, hyperlipidemia, hypertension and prior stroke with left-sided deficit, supplemental O2 use nightly. Presented to [facility] due to an episode of shortness of breath, shaking all over followed by extreme fatigue. Reported she was unable to open her eyes, arms and legs felt heavy. Her son was visiting earlier in the day who noted normal baseline behavior. Later in the afternoon patient states she was sitting at the table coloring when episode occurred. Reports this was an isolated incident. She able to utilize her life alert. She also noted feeling as though her tongue was thick and felt short of breath w/ episode. Denies loss of consciousness and/or biting tongue. Denied any known alleviating or aggravating factors. Denied fever, chills, nausea, vomiting, headache, diarrhea or contact with recent ill individuals. Patient's son noted patient takes gabapentin but she denied use and/or other sedative medication. Recent med addition of Jardiance due to increased bilateral lower edema and shortness of breath. EMS transferred to our facility, received 60 mg Solu-Medrol IV and 4 mg Zofran en route due to nausea prior to arrival. Initial ED workup and laboratory studies obtained. Significant laboratory findings included D-dimer 3.72, potassium 3.3, magnesium 1.5, phosphatase 155, initial troponin 0.22, repeat 0.47, BNP 680, TSH 6.49, respiratory panel without acute finding. Imaging studies included CTA chest and CT head I personally reviewed both. CTA chest revealed no evidence of central pulmonary artery emboli, moderate coronary artery calcification. CT head without acute findings. Assessment of patient at bedside she was without acute distress. Patient only complaint of restless legs. Reports symptoms have improved but still feels fatigued. Hemodynamically stable. [facility] Disclaimer: The information contained in this section may have been updated after the patient was seen, as this information can be updated by other users. Medical History (Updated 08/06/25 @ 04:35 by Jacklyn Lopez APRN) DMII (diabetes mellitus, type 2) Restless leg syndrome CHF (congestive heart failure) Social History Smoking Status: Never smoker alcohol intake: never current occupational status: other Travel in the last 8 weeks?: None Have you lived/traveled outside [place] in past 30 days?: No Contact w/someone who lives/traveled outside [place] past 30 days?: No Exposure to someone with infectious disease in past 14 days?: No Do you have a fever (greater than 100.4 F or 38 C)?: No Have you tested positive for COVID-19?: No Exposed to someone with COVID-19 in past 14 days?: No Do you have a sore throat?: No Do you have a cough?: No Do you have any weakness?: No Do you have any diarrhea?: No Are you experiencing any unusual bleeding?: No Do you have any muscle aches/pain?: No Do you have any abdominal pain?: No Are you experiencing loss of taste or smell?: No Other Medical History Have you received the Flu Vaccine for this season: Yes Have you received the Pneumonia Vaccine: No Review of Systems Review of Systems Review of systems:: pertinent systems reviewed and negative unless documented below Constitutional Constitutional: Reports as per HPI, Reports fatigue and Reports weakness Eyes Eyes: Reports system reviewed and no additional complaints, except as documented and Reports as per HPI ENT Ears, Nose, Mouth, and Throat: Reports tongue swelling (Questionable tongue swelling today; but appears to be at baseline currently) Comments: Patient reported feeling as though her tongue was swollen- Presently not swollen. *Cardiovascular Cardiovascular: Reports as per HPI, Reports dyspnea, Reports dyspnea on exertion, Reports edema and Reports leg edema *Respiratory Respiratory: Reports as per HPI, Reports dyspnea and Reports dyspnea on exertion *Gastrointestinal Gastrointestinal: Reports system reviewed and no additional complaints, except as documented and Reports as per HPI *Genitourinary Genitourinary: Reports system reviewed and no additional complaints, except as documented and Reports as per HPI *Musculoskeletal Musculoskeletal: Reports as per HPI, Reports limited range of motion and Reports muscle weakness Integumentary/Breasts Skin/Breast: Reports system reviewed and no additional complaints, except as documented and Reports as per HPI *Neurologic Neurologic: Reports system reviewed and no additional complaints, except as documented, Reports as per HPI and Reports weakness Psychiatric Psychiatric: Reports system reviewed and no additional complaints, except as documented and Reports as per HPI Endocrine Endocrine: Reports as per HPI and Reports fatigue Hematologic/Lymphatic Hematologic/Lymphatic: Reports as per HPI Allergic/Immunologic Allergic/Immunologic: Reports as per HPI and Reports tongue swelling (Questionable tongue swelling today; but appears to be at baseline currently) Meds Home Medications and Allergies Home Medications ?Medication ?Instructions ?Recorded ?Confirmed ?Type bumetanide 1 mg tablet 1 mg PO BID 08/05/25 5 History carvedilol 6.25 mg tablet 6.25 mg PO DAILY 08/05/25 History empagliflozin 10 mg tablet 10 mg PO DAILY 08/05/25 History (Jardiance) eplerenone 25 mg tablet (Inspra) 12.5 mg PO DAILY 07/1208/05/25 History hydralazine 25 mg tablet 25 mg PO BID 08/05/25 History levothyroxine 75 mcg tablet 75 mcg PO DAILY 08/05/25 1 10/05/24 History (Synthroid) metformin 500 mg tablet 500 mg PO DAILY 08/05/25 History ropinirole 4 mg tablet 4 mg PO TID 08/05/25 5 History sacubitril 97 mg-valsartan 103 mg 1 tab PO BID 5 08/05/25 History tablet (Entresto) New Prescriptions to Start Prescriptions: Allergies Allergy/AdvReac Type Severity Reaction Status Date / Time No Known Allergies Allergy Unverified 08/28/17 14:06 Exam Data for Last 24 hours Vital signs and Labs for Last 24 Hours: Temp Pulse Resp BP Pulse Ox O2 Del Method O2 Flow Rate 98.5 F 79 18 119/54 L 93 L Nasal Cannula 2 08/05/25 20:22 08/05/25 20:22 08/05/25 20:22 08/05/25 20:22 08/05/25 20:15 08/06/25 01:00 08/06/25 01:00 Laboratory Results - last 24 hr 08/05/25 16:30: Magnesium 1.5 L 08/05/25 16:32: WBC 7.0, RBC 4.27, Hgb 11.7 L, Hct 36.6 L, MCV 85.7, MCH 27.4, MCHC 32.0, RDW 15.1, Plt Count 186, MPV 11.0 H, Neut % (Auto) 88.1 H, Lymph % (Auto) 9.9 L, Mower % (Auto) 1.3 L, Eos % (Auto) 0.3, Baso % (Auto) 0.3, Neut # (Auto) 6.2, Lymph # (Auto) 0.7, Mower # (Auto) 0.1, Eos # (Auto) 0.0, Baso # (Auto) 0.0, D-Dimer 3.72 H, Sodium 134 L, Potassium 3.3 L, Chloride 106, Carbon Dioxide 20 L, Anion Gap 11.3, BUN 28 H, Creatinine 1.20 H, Estimated Creat Clear 42, Estimated GFR 43 L, Est GFR ( Amer) 52 L, Glucose 203 H, Calcium 9.3, Total Bilirubin 1.0, AST 29, ALT 20, Alkaline Phosphatase 155 H, Troponin I 0.02, NT-Pro-B Natriuret Pep 680 H, Total Protein 7.9, Albumin 4.0, Globulin 3.9 H, Albumin/Globulin Ratio 1.0 L, Lipase 53, TSH 6.49 H, Free T4 1.30 08/05/25 16:35: VBG pH 7.37, VBG pCO2 35.2, VBG pO2 73.2 H, VBG HCO3 19.7 L, VBG Total CO2 20.8 L, VBG O2 Saturation 94.3 H, VBG Base Excess -5.6 L, VBG Lactic Acid 1.9 08/05/25 18:46: SARS-CoV-2 (PCR) Not detected, Influenza Type A (PCR) Not detected, Influenza Type B (PCR) Not detected, RSV (PCR) Not detected, Rhinovirus (PCR) Not detected 08/05/25 19:17: Troponin I 0.22 H 08/05/25 23:17: Troponin I 0.47 H 08/05/25 23:56: Urine Color Yellow, Urine Appearance Clear, Urine pH 5.5, Ur Specific [place] 1.010, Urine Protein 1+ A, Urine Glucose (UA) 3+, Urine Ketones Trace, Urine Blood 1+ A, Urine Nitrate Positive A, Urine Bilirubin Negative, Urine Urobilinogen 0.2, Ur Leukocyte Esterase Negative, Urine RBC 3-5, Urine WBC 3-5, Ur Squamous Epith Cells Occasional, Urine Bacteria 2+, Urine Opiates Screen Negative, Urine Methadone Screen Negative, Ur Barbituates Screen Negative, Ur Phencyclidine Scrn Negative, Ur Amphetamines Screen Negative, Urine Cocaine Screen Negative, U Marijuana (THC) Screen Negative I & O for Last 24 hours: Intake & Output 08/03/25 08/04/25 08/05/25 08/06/25 23:59 23:59 23:59 23:59 Intake Total 50 / 272 222 / 222 Output Total 450 / 450 Balance 50 / -178 -228 / -228 Weight 80.286 kg Constitutional Constitutional: no acute distress *Routine HEENT Exam Head: Present normocephalic, atraumatic and cushingoid faces Eye: Present EOMI, PERRL and normal accommodation ENT: Present mucous membranes moist *Routine Neck Exam Neck: Present supple Comments: Arthritis neck region difficulty movement *Routine Respiratory Exam Respiratory: Present normal respiratory effort *Routine Cardiovascular Exam Cardiovascular: Present RRR, Normal S1 and Normal S2 *Routine Abdominal Exam Abdominal: Present soft and normoactive bowel sounds *Routine Rectal Exam Rectal:: deferred *Routine Genitalia Exam Genitalia:: deferred Assessment and Plan *Assessment and plan (1) Acute urinary tract infection: Status: Acute Category: Medical Code(s): N39.0 - Urinary tract infection, site not specified (2) Acute muscle weakness: Status: Acute Category: Medical Code(s): M62.81 - Muscle weakness (generalized) (3) Hypomagnesemia: Status: Acute Category: Medical Code(s): E83.42 - Hypomagnesemia (4) Hypokalemia: Status: Acute Category: Medical Code(s): E87.6 - Hypokalemia (5) Elevated d-dimer: Status: Acute Category: Medical Code(s): R79.89 - Other specified abnormal findings of blood chemistry (6) History of stroke with residual deficit: Status: Acute Category: Medical Code(s): I69.30 - Unspecified sequelae of cerebral infarction (7) Hypothyroidism: Status: Acute Qualifiers: Hypothyroidism type: unspecified Qualified Code(s): E03.9 - Hypothyroidism, unspecified Category: Medical Code(s): E03.9 - Hypothyroidism, unspecified (8) CHF (congestive heart failure): Status: Acute Category: Medical Code(s): I50.9 - Heart failure, unspecified (9) Restless leg syndrome: Status: Acute Category: Medical Code(s): G25.81 - Restless legs syndrome (10) DMII (diabetes mellitus, type 2): Status: Acute Category: Medical Code(s): E11.9 - Type 2 diabetes mellitus without complications (11) Hypertension: Status: Acute Category: Medical Code(s): I10 - Essential (primary) hypertension Plan This patient was discussed with the emergency department provider Dr. Doty for hospital admission. 85-year-old female who presented with complaint of generalized weakness after an episode of shaking. Reported feeling as though she could not open up her eyes or lift her arms up. CT head unremarkable for acute finding, CTA chest without evidence of pulmonary embolism. Questionable use of gabapentin, patient denies. UA obtained on the floor for positive for urinary tract infection. IV Rocephin initiated. PT/OT. Routine morning labs, monitor glucose, vitals overnight. 1. Urinary tract infection: Possible contributing factor of acute fatigue symptoms. UA positive nitrate 2+ bacteria, patient without urinary symptoms but states prior UTI she was asymptomatic as well. Urine culture requested/pending, 1 g Rocephin IV initiated. Follow cultures for needed adjustment. 2. Acute generalized weakness: Weakness/fatigue, as noted above possibly exacerbated by urinary tract infection- Possible underlying autoimmune disorder (sudden onset fatigue, ptosis present, extremity weakness, sob). UDS Pending. Recent addition of Jardiance due to increased bilateral lower extremity edema and shortness of breath. Possible hypoglycemic/hypotensive episode with addition? Glucose 200 on arrival but received Solu-Medrol prior. CT head obtained without any acute findings. History of stroke with left arm and leg weakness. Baseline without focal deficit today. Continue to monitor blood pressure, glucose. Consult PT/OT for further evaluation. 3. Elevated D-dimer/elevated troponin: CTA chest obtained without finding of pulmonary embolism. Trending troponin mildly elevated, patient without any chest pain-> twelve-lead normal sinus rhythm no ST elevation or depression. Continue to monitor. 3. Hypertension/CHF: Normotensive, blood pressures have steadily become more soft throughout the night but stable. Will hold antihypertensive medications tonight and reassess in the morning. Appears euvolemic, no evidence of hypervolemia per imaging. Recent addition of Jardiance as noted above due to increased lower extremity swelling and shortness of breath per patient. Pt. noted improvement w/edema. Home regime includes Bumex 1 mg twice daily, Jardiance 10 mg daily, [place] 97-103 mg twice daily, resume. Monitor I's and O's. 4. Hypokalemia/hypomagnesemia: Mildly decreased potassium 3.3 and magnesium 1.5 replete as needed, replace per electrolyte protocol. 5. Hypothyroidism/Subclinical hypothyroidism-> TSH 6.49, free T4 1.30, possibly contributing to weakness/fatigue-resume levothyroxine 75 mcg daily, will likely need f/u monitoring outpatient. 6. Diabetes mellitus type 2: Metformin 500 mg and recent addition Jardiance per home medication regime. Will hold metformin due to imaging with contrast. Insulin sliding scale with Accu-Cheks ACHS. Hemoglobin A1c with morning labs. Consistent carb diet. 7. Congestive heart failure: Patient appears to be euvolemic, no evidence of fluid overload per imaging. Recent addition of Jardiance as noted above due to increased lower extremity swelling and shortness of breath per patient. States medication has improved symptoms associated with hypervolemia. Home regime includes Bumex 1 mg twice daily, Jardiance 10 mg daily, [place] 97-103 mg twice daily-monitor I's and O's. 8. DVT prophylaxis: Lovenox
[2025-08-06 01:46] LABS: Benzodiazepines Screen,Urine Negative ng/ml (<200)
[2025-08-06] MEDS: CEFTRIAXONE 1 GM 1 GM in 0.9 % SODIUM CHLORIDE 50 ML IV (02:16)
[2025-08-06 05:11] LABS: POC Glucose,Bedside 270 gm/dL (70-110)
[2025-08-06] MEDS: humaLOG 100 UNITS/ML 10ML VIAL (SSI) SUBCUT (05:17)
--- NOTE | 2025-08-06 06:35 | PC.NURSE ---
Pt new admit this shift. AOx4, pleasant. Denies pain. Has severe restless legs. Tolerating 2L O2, which she says she wears intermittently at home. Purewick in place. Assist x1 with walker. Currently resting in bed with eyes open. Respirations even and unlabored. Bed low, locked, and call light in reach.
[2025-08-06 07:34] LABS: Hematocrit 36.5 % (37.0-47.0); Hemoglobin 11.2 g/dL (12.2-16.2); Immature Granulocytes % 0.5 %; Mean Corpuscular HGB Conc 30.7 g/dL (31.8-35.4); Mean Corpuscular Hemoglobin 26.6 pg (27.0-31.2); Mean Corpuscular Volume 86.7 fl (81-99); Nucleated Red Blood Cells % 0 %; Platelet Count 190 K/mm3 (142-424); Red Blood Count 4.21 M/mm3 (4.20-5.40); Red Cell Distribution Width-SD 49.3 fL; White Blood Count 12.5 K/mm3 (4.8-10.8)
[2025-08-06 07:50] LABS: Alanine Aminotransferase 44 U/L (12-78); Albumin Level 4.3 g/dl (3.5-5.0); Albumin/Globulin Ratio 1.0 (1.1-1.8); Alkaline Phosphatase 113 U/L (38-126); Anion Gap 12.2 mEq/L (5-15); Aspartate Amino Transferase 48 U/L (14-36); Bilirubin,Total 0.9 mg/dl (0.2-1.3); Blood Urea Nitrogen 30 mg/dl (7-17); Calcium 9.3 mg/dl (8.4-10.2); Carbon Dioxide 21 mmol/L (22.0-30.0); Chloride 108 mmol/L (98-107); Creatinine Clearance Estimated 40 mL/min (50-200); Creatinine,Serum 1.30 mg/dl (0.52-1.04); Estimated Glomerular Filt Rate 39 ml/min (>60); GFR (African American) 47 ML/MIN (>60); Globulin 4.1 g/dL (1.3-3.2); Glucose 115 mg/dl (74-100); Magnesium 2.4 mg/dl (1.6-2.3); Potassium 4.2 mmoL/L (3.5-5.1); Sodium 137 mmol/L (136-145); Total Protein,Serum 8.4 g/dl (6.3-8.2)
[2025-08-06] MEDS: SACUBITRIL/VALSARTAN 24-26MG TABLET 4 EACH PO (08:54)
[2025-08-06] MEDS: BUMETANIDE 1 MG TABLET PO (08:54)
[2025-08-06] MEDS: LEVOTHYROXINE 75MCG (0.075MG) TAB 75 MCG PO (08:54)
[2025-08-06] MEDS: ROPINIROLE 1MG TABLET 4 MG PO ×2 (08:54→15:37)
[2025-08-06] MEDS: ASPIRIN 325MG TABLET 325 MG PO (09:25)
--- NOTE | 2025-08-06 09:26 | ECG_ITS ---
APPROVED REPORT Exam: Resting ECG HR:56 bpm ECG Measurements Heart Rate 56 AXES ME 146 P -19 QRSd 102 QRS 3 QT 486 T 2 QTc 479 Conclusion SINUS BRADYCARDIA PROLONGED QT INTERVAL ABNORMAL ECG UNCONFIRMED REPORT Electronically signed by : Theron Dozier MD 08/07/2025 09:25:21
[2025-08-06 10:15] LABS: Troponin I 0.30 ng/ml (0.00-0.034)
--- NOTE | 2025-08-06 10:36 | P.DS_ITS ---
<Statement entered by Jay Palomares MD - 08/06/25 15:21> Rounded on patient after nurse practitioner. Personally examined and interviewed patient. Agree with exam findings and care plan as documented. During team rounds, concern raised given patient's elevated troponin and presentation of weakness and shortness of breath. Concern for anginal equivalents. Has no chest pain. Symptoms not easily explained by UTI. Discussed case with cardiology, recommend heart cath. Taken for left heart cath and found to have proximal LAD lesion. Findings consistent with type I NSTEMI with plaque rupture. Received 1 stent to the LAD. Continue DAPT therapy. Stable to discharge after removal of trace light bands. General Admission date:: 08/05/25 Discharge date: 08/06/25 HPI HPI HPI: Nanette Jorge is a 85-year-old female past medical significant for diabetes mellitus type 2, congestive heart failure, restless leg syndrome, hypothyroidism, hyperlipidemia, hypertension and prior stroke with left-sided deficit, supplemental O2 use nightly. Presented to [facility] due to an episode of shortness of breath, shaking all over followed by extreme fatigue. Reported she was unable to open her eyes, arms and legs felt heavy. Her son was visiting earlier in the day who noted normal baseline behavior. Later in the afternoon patient states she was sitting at the table coloring when episode occurred. Reports this was an isolated incident. She able to utilize her life alert. She also noted feeling as though her tongue was thick and felt short of breath w/ episode. Denies loss of consciousness and/or biting tongue. Denied any known alleviating or aggravating factors. Denied fever, chills, nausea, vomiting, headache, diarrhea or contact with recent ill individuals. Patient's son noted patient takes gabapentin but she denied use and/or other sedative medication. Recent med addition of Jardiance due to increased bilateral lower edema and shortness of breath. EMS transferred to our facility, received 60 mg Solu-Medrol IV and 4 mg Zofran en route due to nausea prior to arrival. Initial ED workup and laboratory studies obtained. Significant laboratory findi ngs included D-dimer 3.72, potassium 3.3, magnesium 1.5, phosphatase 155, initial troponin 0.22, repeat 0.47, BNP 680, TSH 6.49, respiratory panel without acute finding. Imaging studies included CTA chest and CT head I personally reviewed both. CTA chest revealed no evidence of central pulmonary artery emboli, moderate coronary artery calcification. CT head without acute findings. Assessment of patient at bedside she was without acute distress. Patient only complaint of restless legs. Reports symptoms have improved but still feels fatigued. Hemodynamically stable. Hospital Course Hospital Course Hospital Course: Ms. Jorge is an 85-year-old female who presented to the emergency department yesterday afternoon with complaints of weakness, shortness of breath, shaking/agitation. Patient stated she began to feel weak, eyes, arms, legs felt very heavy and she began shaking. She used her [employer] alert who alerted EMS and brought her to the emergency department she denied loss of consciousness, fever, chills, nausea, vomiting, chest pain, abdominal pain. She has a primary medical history of type 2 diabetes, congestive heart failure, hypothyroid, HTN, HLD, and previous stroke with left-sided weakness. She states she does use supplemental O2 at night. Workup in the emergency department was significant for elevated D- dimer of 3.72, potassium 3.3, magnesium 1.5, phosphate 155, initial troponin 0.02. BNP 680, TSH 6.49, respiratory panel with no acute findings. Urinalysis indicative of infection. Vitals remained hemodynamically stable, patient was requiring 2 L nasal cannula to maintain oxygen saturation greater than 90%. Patient had CTA of chest which revealed no evidence of PE, moderate coronary artery calcification, CT of head was without acute findings. Patient was initiated on Rocephin IV for UTI and admission was requested from hospital medicine, for continued monitoring, weakness, and urinary tract infection. Continued workup after admission was notable for troponin trending upward, repeat 0.22 trending upward to 0.47. Patient continued to deny chest pain or shortness of breath and was adamant she should be discharged home. Interactive discussion was had with myself, Dr. Palomares, Dr. Patel who discussed elevated troponin. EKG on admission showed some ischemia, subsequent EKG shows showed sinus rhythm with no ischemia or ST depression/elevation. Although unusual presentation of symptoms, after discussion it was deemed the patient would most benefit from left heart cath due to elevated troponin. Discussion was had with patient and patient's sons who were agreeable to left heart cath. Patient was taken down for heart cath shortly after discussion and was found to have a left anterior descending artery with ruptured plaque creating 90% stenosis with remaining vessel having mild luminal regularities. Patient received 1 LATOSHA to the proximal LAD to reduce critical disease to 0%, normal EF, normal LVEDP noted. This is consistent with a NSTEMI, type I. Patient was loaded with Plavix 600 mg at this time, and transported to medical surgical floor for continued monitoring and observation. Patient did extremely well post procedures, vital stable, stable on room air. Patient denies chest pain, shortness of breath. Discussion with patient and family to continue cardiac medications (Bumex 1 mg twice daily, carvedilol 6.25 mg daily, eplerenone 12.5 daily milligram, hydralazine 25 mg twice daily, Jardiance 10 mg daily, Entresto 1 tab twice daily) as prescribed and additionally will add Plavix 75 mg daily, aspirin 81 mg daily, and atorvastatin 40 mg at bedtime. Patient agreeable to new medication and following up with cardiology in approximately 1 week. At time of discharge patient's labs stable, WBC 12.5, hemoglobin 11.2, sodium 133, potassium 4.3. Kidney function slightly elevated but appears to be baseline, creatinine 1.3, magnesium 2.4. A1c elevated at 8.3%, patient currently prescribed metformin 500 mg daily. Patient should follow-up with PCP for medical management of her diabetes. Patient was treated for urinary tract infection with Rocephin IV, will transition to oral antibiotics of cefdinir 300 mg twice daily x 5 days total of antibiotics. Patient should continue medication for hypothyroid Synthroid 75 mcg daily, TSH during admission 6.49, free T4 1.3. This may need to be addressed with her PCP. Reminded patient about taking medication on empty stomach in the morning. Continue Requip 4 mg 3 times daily. Total time spent on discharge 38 minutes in counseling, documentation, chart review, and direct care with patient. Exam Data for Last 24 hours Vital signs and Labs for Last 24 Hours: Temp Pulse Resp BP Pulse Ox O2 Del Method O2 Flow Rate 98.3 F 65 18 131/69 95 Room Air 1 08/06/25 08:00 08/06/25 08:00 08/06/25 08:00 08/06/25 08:00 08/06/25 08:00 08/06/25 09:00 08/06/25 08:00 Laboratory Results - last 24 hr 08/05/25 16:30: Magnesium 1.5 L 08/05/25 16:32: WBC 7.0, RBC 4.27, Hgb 11.7 L, Hct 36.6 L, MCV 85.7, MCH 27.4, MCHC 32.0, RDW 15.1, Plt Count 186, MPV 11.0 H, Neut % (Auto) 88.1 H, Lymph % (Auto) 9.9 L, [place] % (Auto) 1.3 L, Eos % (Auto) 0.3, Baso % (Auto) 0.3, Neut # (Auto) 6.2, Lymph # (Auto) 0.7, [place] # (Auto) 0.1, Eos # (Auto) 0.0, Baso # (Auto) 0.0, D-Dimer 3.72 H, Sodium 134 L, Potassium 3.3 L, Chloride 106, Carbon Dioxide 20 L, Anion Gap 11.3, BUN 28 H, Creatinine 1.20 H, Estimated Creat Clear 42, Estimated GFR 43 L, Est GFR ( Amer) 52 L, Glucose 203 H, Calcium 9.3, Total Bilirubin 1.0, AST 29, ALT 20, Alkaline Phosphatase 155 H, Troponin I 0.02, NT-Pro-B Natriuret Pep 680 H, Total Protein 7.9, Albumin 4.0, Globulin 3.9 H, Albumin/Globulin Ratio 1.0 L, Lipase 53, TSH 6.49 H, Free T4 1.30 08/05/25 16:35: VBG pH 7.37, VBG pCO2 35.2, VBG pO2 73.2 H, VBG HCO3 19.7 L, VBG Total CO2 20.8 L, VBG O2 Saturation 94.3 H, VBG Base Excess -5.6 L, VBG Lactic Acid 1.9 08/05/25 18:46: SARS-CoV-2 (PCR) Not detected, Influenza Type A (PCR) Not detected, Influenza Type B (PCR) Not detected, RSV (PCR) Not detected, Rhinovirus (PCR) Not detected 08/05/25 19:17: Troponin I 0.22 H 08/05/25 23:17: Troponin I 0.47 H 08/05/25 23:56: Urine Color Yellow, Urine Appearance Clear, Urine pH 5.5, Ur Specific [place] 1.010, Urine Protein 1+ A, Urine Glucose (UA) 3+, Urine Ketones Trace, Urine Blood 1+ A, Urine Nitrate Positive A, Urine Bilirubin Negative, Urine Urobilinogen 0.2, Ur Leukocyte Esterase Negative, Urine RBC 3-5, Urine WBC 3-5, Ur Squamous Epith Cells Occasional, Urine Bacteria 2+, Urine Opiates Screen Negative, Urine Methadone Screen Negative, Ur Barbituates Screen Negative, Ur Phencyclidine Scrn Negative, Ur Amphetamines Screen Negative, U Benzodiazepines Scrn Negative, Urine Cocaine Screen Negative, U Marijuana (THC) Screen Negative 08/06/25 00:15: Chlamy pneumoniae PCR Not detected, Adenovirus (PCR) Not detected, B. pertussis DNA (PCR) Not detected, Coronavirus OC43 (PCR) Not detected, Coronavirus HKU1 (PCR) Not detected, Coronavirus 229E (PCR) Not detected, SARS-CoV-2 (PCR) Not detected, Coronavirus NL63 (PCR) Not detected, Human Metapneumovir PCR Not detected, Influenza A (H1) PCR Not detected, Influ A (H1N1/09) PCR Not detected, Influenza A (H3) PCR Not detected, Influenza Type A (PCR) Not detected, Influenza Type B (PCR) Not detected, M. pneumoniae (PCR) Not detected, Parainfluenza 1 (PCR) Not detected, Parainfluenza 2 (PCR) Not detected, Parainfluenza 3 (PCR) Not detected, Parainfluenza 4 (PCR) Not detected, RSV (PCR) Not detected, Entero/Rhino (PCR) Not detected 08/06/25 05:02: POC Glucose 270 H 08/06/25 07:09: WBC 12.5 H D, RBC 4.21, Hgb 11.2 L, Hct 36.5 L, MCV 86.7, MCH 26.6 L, MCHC 30.7 L, RDW 15.5, Plt Count 190, MPV 11.1 H, Neut % (Auto) 90.1 H, Lymph % (Auto) 5.2 L, [place] % (Auto) 4.1, Eos % (Auto) 0.0 L, Baso % (Auto) 0.1, Neut # (Auto) 11.3 H, Lymph # (Auto) 0.7, [place] # (Auto) 0.5, Eos # (Auto) 0.0, Baso # (Auto) 0.0, Sodium 137, Potassium 4.2 D, Chloride 108 H, Carbon Dioxide 21 L, Anion Gap 12.2, BUN 30 H, Creatinine 1.30 H, Estimated Creat Clear 40, Estimated GFR 39 L, Est GFR ( Amer) 47 L, Glucose 115 H D, Calcium 9.3, Magnesium 2.4 H D, Total Bilirubin 0.9, AST 48 H D, ALT 44 D, Alkaline Phosphatase 113, Total Protein 8.4 H, Albumin 4.3, Globulin 4.1 H, Albumin/Globulin Ratio 1.0 L 08/06/25 09:40: Troponin I 0.30 H I & O for Last 24 hours: Intake & Output 08/03/25 08/04/25 08/05/25 08/06/25 23:59 23:59 23:59 23:59 Intake Total 50 / 272 542 / 542 Output Total 1000 / 1000 Balance 50 / -178 -458 / -458 Weight 80.286 kg 79.061 kg Constitutional Constitutional: no acute distress, obese and cooperative *Routine HEENT Exam Head: Present normocephalic Eye: Present EOMI ENT: Present mucous membranes moist *Routine Neck Exam Neck: Present supple; Absent lymphadenopathy or thyromegaly *Routine Respiratory Exam Respiratory: Present CTA bilaterally and normal respiratory effort; Absent wheezes or crackles *Routine Cardiovascular Exam Cardiovascular: Present RRR, Normal S1 and Normal S2; Absent murmur *Routine Abdominal Exam Abdominal: Present soft and normoactive bowel sounds; Absent tenderness or distended *Routine Rectal Exam Patient deferred: visual exam *Routine Exam Patient deferred: external exam *Routine Extremities Exam Extremities: Present full ROM; Absent cyanosis, clubbing or edema *Routine Skin Exam Skin: Present intact and dry; Absent rash *Routine Neurological Exam Neurological: Present alert, oriented X3, vision grossly intact, hearing grossly intact and normal speech Results Data Completed and Pending Labs on day of discharge: Labs from last 24 hours 08/06/25 08/06/25 08/06/25 09:40 07:09 05:02 WBC 12.5 H D RBC 4.21 Hgb 11.2 L Hct 36.5 L MCV 86.7 MCH 26.6 L MCHC 30.7 L RDW 15.5 Plt Count 190 MPV 11.1 H Neut % (Auto) 90.1 H Lymph % (Auto) 5.2 L [place] % (Auto) 4.1 Eos % (Auto) 0.0 L Baso % (Auto) 0.1 Neut # (Auto) 11.3 H Lymph # (Auto) 0.7 [place] # (Auto) 0.5 Eos # (Auto) 0.0 Baso # (Auto) 0.0 D-Dimer VBG pH VBG pCO2 VBG pO2 VBG HCO3 VBG Total CO2 VBG O2 Saturation VBG Base Excess VBG Lactic Acid Sodium 137 Potassium 4.2 D Chloride 108 H Carbon Dioxide 21 L Anion Gap 12.2 BUN 30 H Creatinine 1.30 H Estimated Creat Clear 40 Estimated GFR 39 L Est GFR ( Amer) 47 L Glucose 115 H D POC Glucose 270 H Calcium 9.3 Magnesium 2.4 H D Total Bilirubin 0.9 AST 48 H D ALT 44 D Alkaline Phosphatase 113 Troponin I 0.30 H NT-Pro-B Natriuret Pep Total Protein 8.4 H Albumin 4.3 Globulin 4.1 H Albumin/Globulin Ratio 1.0 L Lipase TSH Free T4 Urine Color Urine Appearance Urine pH Ur Specific [place] Urine Protein Urine Glucose (UA) Urine Ketones Urine Blood Urine Nitrate Urine Bilirubin Urine Urobilinogen Ur Leukocyte Esterase Urine RBC Urine WBC Ur Squamous Epith Cells Urine Bacteria Urine Opiates Screen Urine Methadone Screen Ur Barbituates Screen Ur Phencyclidine Scrn Ur Amphetamines Screen U Benzodiazepines Scrn Urine Cocaine Screen U Marijuana (THC) Screen Chlamy pneumoniae PCR Adenovirus (PCR) B. pertussis DNA (PCR) Coronavirus OC43 (PCR) Coronavirus HKU1 (PCR) Coronavirus 229E (PCR) SARS-CoV-2 (PCR) Coronavirus NL63 (PCR) Human Metapneumovir PCR Influenza A (H1) PCR Influ A (H1N1/09) PCR Influenza A (H3) PCR Influenza Type A (PCR) Influenza Type B (PCR) M. pneumoniae (PCR) Parainfluenza 1 (PCR) Parainfluenza 2 (PCR) Parainfluenza 3 (PCR) Parainfluenza 4 (PCR) RSV (PCR) Rhinovirus (PCR) Entero/Rhino (PCR) 08/06/25 08/05/25 08/05/25 00:15 23:56 23:17 WBC RBC Hgb Hct MCV MCH MCHC RDW Plt Count MPV Neut % (Auto) Lymph % (Auto) [place] % (Auto) Eos % (Auto) Baso % (Auto) Neut # (Auto) Lymph # (Auto) [place] # (Auto) Eos # (Auto) Baso # (Auto) D-Dimer VBG pH VBG pCO2 VBG pO2 VBG HCO3 VBG Total CO2 VBG O2 Saturation VBG Base Excess VBG Lactic Acid Sodium Potassium Chloride Carbon Dioxide Anion Gap BUN Creatinine Estimated Creat Clear Estimated GFR Est GFR ( Amer) Glucose POC Glucose Calcium Magnesium Total Bilirubin AST ALT Alkaline Phosphatase Troponin I 0.47 H NT-Pro-B Natriuret Pep Total Protein Albumin Globulin Albumin/Globulin Ratio Lipase TSH Free T4 Urine Color Yellow Urine Appearance Clear Urine pH 5.5 Ur Specific [place] 1.010 Urine Protein 1+ A Urine Glucose (UA) 3+ Urine Ketones Trace Urine Blood 1+ A Urine Nitrate Positive A Urine Bilirubin Negative Urine Urobilinogen 0.2 Ur Leukocyte Esterase Negative Urine RBC 3-5 Urine WBC 3-5 Ur Squamous Epith Cells Occasional Urine Bacteria 2+ Urine Opiates Screen Negative Urine Methadone Screen Negative Ur Barbituates Screen Negative Ur Phencyclidine Scrn Negative Ur Amphetamines Screen Negative U Benzodiazepines Scrn Negative Urine Cocaine Screen Negative U Marijuana (THC) Screen Negative Chlamy pneumoniae PCR Not detected Adenovirus (PCR) Not detected B. pertussis DNA (PCR) Not detected Coronavirus OC43 (PCR) Not detected Coronavirus HKU1 (PCR) Not detected Coronavirus 229E (PCR) Not detected SARS-CoV-2 (PCR) Not detected Coronavirus NL63 (PCR) Not detected Human Metapneumovir PCR Not detected Influenza A (H1) PCR Not detected Influ A (H1N1/09) PCR Not detected Influenza A (H3) PCR Not detected Influenza Type A (PCR) Not detected Influenza Type B (PCR) Not detected M. pneumoniae (PCR) Not detected Parainfluenza 1 (PCR) Not detected Parainfluenza 2 (PCR) Not detected Parainfluenza 3 (PCR) Not detected Parainfluenza 4 (PCR) Not detected RSV (PCR) Not detected Rhinovirus (PCR) Entero/Rhino (PCR) Not detected 08/05/25 08/05/25 08/05/25 19:17 18:46 16:35 WBC RBC Hgb Hct MCV MCH MCHC RDW Plt Count MPV Neut % (Auto) Lymph % (Auto) [place] % (Auto) Eos % (Auto) Baso % (Auto) Neut # (Auto) Lymph # (Auto) [place] # (Auto) Eos # (Auto) Baso # (Auto) D-Dimer VBG pH 7.37 VBG pCO2 35.2 VBG pO2 73.2 H VBG HCO3 19.7 L VBG Total CO2 20.8 L VBG O2 Saturation 94.3 H VBG Base Excess -5.6 L VBG Lactic Acid 1.9 Sodium Potassium Chloride Carbon Dioxide Anion Gap BUN Creatinine Estimated Creat Clear Estimated GFR Est GFR ( Amer) Glucose POC Glucose Calcium Magnesium Total Bilirubin AST ALT Alkaline Phosphatase Troponin I 0.22 H NT-Pro-B Natriuret Pep Total Protein Albumin Globulin Albumin/Globulin Ratio Lipase TSH Free T4 Urine Color Urine Appearance Urine pH Ur Specific [place] Urine Protein Urine Glucose (UA) Urine Ketones Urine Blood Urine Nitrate Urine Bilirubin Urine Urobilinogen Ur Leukocyte Esterase Urine RBC Urine WBC Ur Squamous Epith Cells Urine Bacteria Urine Opiates Screen Urine Methadone Screen Ur Barbituates Screen Ur Phencyclidine Scrn Ur Amphetamines Screen U Benzodiazepines Scrn Urine Cocaine Screen U Marijuana (THC) Screen Chlamy pneumoniae PCR Adenovirus (PCR) B. pertussis DNA (PCR) Coronavirus OC43 (PCR) Coronavirus HKU1 (PCR) Coronavirus 229E (PCR) SARS-CoV-2 (PCR) Not detected Coronavirus NL63 (PCR) Human Metapneumovir PCR Influenza A (H1) PCR Influ A (H1N1/09) PCR Influenza A (H3) PCR Influenza Type A (PCR) Not detected Influenza Type B (PCR) Not detected M. pneumoniae (PCR) Parainfluenza 1 (PCR) Parainfluenza 2 (PCR) Parainfluenza 3 (PCR) Parainfluenza 4 (PCR) RSV (PCR) Not detected Rhinovirus (PCR) Not detected Entero/Rhino (PCR) 08/05/25 08/05/25 16:32 16:30 WBC 7.0 RBC 4.27 Hgb 11.7 L Hct 36.6 L MCV 85.7 MCH 27.4 MCHC 32.0 RDW 15.1 Plt Count 186 MPV 11.0 H Neut % (Auto) 88.1 H Lymph % (Auto) 9.9 L [place] % (Auto) 1.3 L Eos % (Auto) 0.3 Baso % (Auto) 0.3 Neut # (Auto) 6.2 Lymph # (Auto) 0.7 [place] # (Auto) 0.1 Eos # (Auto) 0.0 Baso # (Auto) 0.0 D-Dimer 3.72 H VBG pH VBG pCO2 VBG pO2 VBG HCO3 VBG Total CO2 VBG O2 Saturation VBG Base Excess VBG Lactic Acid Sodium 134 L Potassium 3.3 L Chloride 106 Carbon Dioxide 20 L Anion Gap 11.3 BUN 28 H Creatinine 1.20 H Estimated Creat Clear 42 Estimated GFR 43 L Est GFR ( Amer) 52 L Glucose 203 H POC Glucose Calcium 9.3 Magnesium 1.5 L Total Bilirubin 1.0 AST 29 ALT 20 Alkaline Phosphatase 155 H Troponin I 0.02 NT-Pro-B Natriuret Pep 680 H Total Protein 7.9 Albumin 4.0 Globulin 3.9 H Albumin/Globulin Ratio 1.0 L Lipase 53 TSH 6.49 H Free T4 1.30 Urine Color Urine Appearance Urine pH Ur Specific [place] Urine Protein Urine Glucose (UA) Urine Ketones Urine Blood Urine Nitrate Urine Bilirubin Urine Urobilinogen Ur Leukocyte Esterase Urine RBC Urine WBC Ur Squamous Epith Cells Urine Bacteria Urine Opiates Screen Urine Methadone Screen Ur Barbituates Screen Ur Phencyclidine Scrn Ur Amphetamines Screen U Benzodiazepines Scrn Urine Cocaine Screen U Marijuana (THC) Screen Chlamy pneumoniae PCR Adenovirus (PCR) B. pertussis DNA (PCR) Coronavirus OC43 (PCR) Coronavirus HKU1 (PCR) Coronavirus 229E (PCR) SARS-CoV-2 (PCR) Coronavirus NL63 (PCR) Human Metapneumovir PCR Influenza A (H1) PCR Influ A (H1N1/09) PCR Influenza A (H3) PCR Influenza Type A (PCR) Influenza Type B (PCR) M. pneumoniae (PCR) Parainfluenza 1 (PCR) Parainfluenza 2 (PCR) Parainfluenza 3 (PCR) Parainfluenza 4 (PCR) RSV (PCR) Rhinovirus (PCR) Entero/Rhino (PCR) DS: Diagnosis Discharge Diagnosis (1) Acute urinary tract infection: Status: Acute Code(s): N39.0 - Urinary tract infection, site not specified (2) Acute muscle weakness: Status: Acute Code(s): M62.81 - Muscle weakness (generalized) (3) Hypomagnesemia: Status: Acute Code(s): E83.42 - Hypomagnesemia (4) Hypokalemia: Status: Acute Code(s): E87.6 - Hypokalemia (5) Elevated d-dimer: Status: Acute Code(s): R79.89 - Other specified abnormal findings of blood chemistry (6) History of stroke with residual deficit: Status: Acute Code(s): I69.30 - Unspecified sequelae of cerebral infarction (7) Hypothyroidism: Status: Acute Code(s): E03.9 - Hypothyroidism, unspecified Qualifiers: Hypothyroidism type: unspecified Qualified Code(s): E03.9 - Hypothyroidism, unspecified (8) CHF (congestive heart failure): Status: Acute Code(s): I50.9 - Heart failure, unspecified (9) Restless leg syndrome: Status: Acute Code(s): G25.81 - Restless legs syndrome (10) DMII (diabetes mellitus, type 2): Status: Acute Code(s): E11.9 - Type 2 diabetes mellitus without complications (11) Hypertension: Status: Acute Code(s): I10 - Essential (primary) hypertension (12) CAD (coronary artery disease): Status: Acute Code(s): I25.10 - Atherosclerotic heart disease of [place] coronary artery without angina pectoris (13) Status post left heart catheterization (LHC): Status: Acute Code(s): Z98.890 - Other specified postprocedural states (14) NSTEMI (non-ST elevated myocardial infarction): Status: Acute Code(s): I21.4 - Non-ST elevation (NSTEMI) myocardial infarction Meds Home Medications and Allergies Home Medications ?Medication ?Instructions ?Recorded ?Confirmed ?Type bumetanide 1 mg tablet 1 mg PO 0800,1200 08/05/25 1 10/06/24 History carvedilol 6.25 mg tablet 6.25 mg PO DAILY 08/05/25 History empagliflozin 10 mg tablet 10 mg PO DAILY 08/05/25 History (Jardiance) eplerenone 25 mg tablet (Inspra) 12.5 mg PO DAILY 07/1208/05/25 History hydralazine 25 mg tablet 25 mg PO BID 08/05/25 History levothyroxine 75 mcg tablet 75 mcg PO DAILY 08/05/25 1 10/05/24 History (Synthroid) metformin 500 mg tablet 500 mg PO DAILY 08/05/25 History ropinirole 4 mg tablet 4 mg PO TID 08/05/25 5 History sacubitril 97 mg-valsartan 103 mg 1 tab PO BID 5 08/05/25 History tablet (Entresto) aspirin 81 mg chewable tablet 81 mg PO DAILY #30 tabs 08/06/25 Rx atorvastatin 40 mg tablet (Lipitor) 40 mg PO HS #30 ta bs 08/06/25 Rx cefdinir 300 mg capsule 300 mg PO BID #8 caps Rx clopidogrel 75 mg tablet (Plavix) 75 mg PO DAILY #30 t abs 08/06/25 Rx New Prescriptions to Start Prescriptions: aspirin Sonia Krishnan atorvastatin [Lipitor] Sonia Krishnan cefdinir Sonia Krishnan clopidogrel [Plavix] Sonia Krishnan Allergies Allergy/AdvReac Type Severity Reaction Status Date / Time No Known Allergies Allergy Unverified 08/28/17 14:06 Discharge Plan Disposition Patient Disposition: Home, Self-Care Condition: Fair Follow up Plan Follow up with: Rocio Tavera [Primary Care Provider, Medical] - Enter time for follow up Glen Patel MD [Staff Physician, Cardiology] - 1 week Prescriptions/Medication Reconciliation: New clopidogrel [Plavix] 75 mg tablet 75 mg PO DAILY Qty: 30 0RF aspirin 81 mg tablet,chewable 81 mg PO DAILY Qty: 30 0RF cefdinir 300 mg capsule 300 mg PO BID Qty: 8 0RF atorvastatin [Lipitor] 40 mg tablet 40 mg PO HS Qty: 30 0RF Continued metformin 500 mg Tablet 500 mg PO DAILY carvedilol 6.25 mg Tablet 6.25 mg PO DAILY hydralazine 25 mg Tablet 25 mg PO BID levothyroxine [Synthroid] 75 mcg Tablet 75 mcg PO DAILY bumetanide 1 mg tablet 1 mg PO 0800,1200 ropinirole 4 mg tablet 4 mg PO TID eplerenone [Inspra] 25 mg Tablet 12.5 mg PO DAILY Jardiance 10 mg tablet 10 mg PO DAILY sacubitril-valsartan [Entresto] 97-103 mg Tablet 1 tab PO BID Problem Reconciliation Problems Reviewed?: Yes Patient Discharge Instructions ACTIVITY: Ambulate as tolerated and No heavy lifting DIET: continue same diet Patient Instructions: DI for Muscle Weakness Print Language: Wolof Providers Primary Care Provider: Rocio Tavera Admit Provider: Jay Palomares Attending Provider: Jay Palomares
--- NOTE | 2025-08-06 10:36 | IR_ITS ---
APPROVED REPORT Patient Location: Inpatient Environmental Systems Coordinator: BENNETT Sethi RT (R) PROCEDURES Left heart catheterization Left ventriculogram Selective coronary angiogram Drug-eluting stent deployment to the proximal LAD INDICATION Acute anterior non-ST elevation myocardial infarction, Coronary artery disease Informed consent was obtained prior to the procedure. COMPLICATIONS None Estimated Blood Loss: Less than 10 mls TECHNIQUE One percent lidocaine used to anesthetize the right anterior aspect of the wrist. The right radial artery was accessed via the Seldinger technique. A 6 Indonesian sheath was placed in the right radial artery. 2.5 mg of Verapamil, 800 mcg of nitroglycerin, 1mg Lidocaine and 5000 U Heparin were given through the arterial sheath. The JL3 catheter was also used to perform left heart catheterization, left ventriculogram and selective coronary angiogram. At the end the diagnostic angiogram therapeutic heparin was administered giving a therapeutic ACT and the guide catheter was placed in the left main artery followed by Choice PT extra-support wire placed distally in the LAD. A 3.5 x 22 mm Michael frontier stent was deployed at 14 car reducing the critical stenosis. A 3.5 x 8 mm noncompliant balloon was deployed at 20 car in the proximal segment to post dilate. KAREN-3 flow was present before and after the procedure. After achieving excellent angiograph results the apparatus was removed the sheath was removed hemostasis was achieved using TR banding patient was transferred to the postop holding in stable condition. ANGIOGRAPHIC RESULTS The left main artery Normal The left anterior descending artery Has a proximal high risk ruptured plaque creating 90% stenosis with remaining vessel having mild luminal regularities The circumflex artery Nondominant with 20% stenosis proximally and 20% in a large first obtuse marginal artery The right coronary artery Large dominant with a proximal concentric smooth 30 to 40% stenosis The MICHAEL ventriculogram reveals Normal 60% The left ventricular end-diastolic pressure 10 mmHg IMPRESSION Critical proximal LAD disease as described above Successful stenting of the proximal LAD critical disease reduced to 0% with 1 drug-eluting stent Normal ejection fraction Normal LVEDP PLAN 1. Plavix and aspirin 2. LDL less than 55 to be achieved with high intensity statin 3. Avoidance of tobacco products 4. Cardiac rehabilitation 5. Risk factor modification 6. Follow-up in cardiology clinic 1 week after discharge Electronically signed by : Glen Patel MD 08/06/2025 11:26:48
[2025-08-06 10:38] LABS: Anion Gap 11.3 mEq/L (5-15); Blood Urea Nitrogen 31 mg/dl (7-17); Calcium 9.1 mg/dl (8.4-10.2); Carbon Dioxide 20 mmol/L (22.0-30.0); Chloride 106 mmol/L (98-107); Creatinine Clearance Estimated 40 mL/min (50-200); Creatinine,Serum 1.30 mg/dl (0.52-1.04); Estimated Glomerular Filt Rate 39 ml/min (>60); GFR (African American) 47 ML/MIN (>60); Glucose 159 mg/dl (74-100); Potassium 4.3 mmoL/L (3.5-5.1); Sodium 133 mmol/L (136-145)
--- NOTE | 2025-08-06 10:54 | PC.NURSE ---
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
[2025-08-06] MEDS: LIDOCAINE 1% 10ML MDV 10 ML IJ (11:24)
[2025-08-06] MEDS: HEPARIN 1,000 UNITS/500ML NS (CATH LAB) 3000 UNIT IV (11:24)
[2025-08-06] MEDS: NITROGLYCERIN 800MCG/8ML SYR (CATH LAB) 800 MCG IA (11:24)
[2025-08-06] MEDS: MIDAZOLAM HCL 1MG/ML 5ML VIAL 1 MG IV (11:25)
[2025-08-06] MEDS: FENTANYL 100MCG/2ML VIAL 50 MCG IV (11:25)
[2025-08-06] MEDS: VERAPAMIL 2.5MG/ML 2ML VIAL 2.5 MG IV (11:26)
[2025-08-06] MEDS: HEPARIN 1,000 UNITS/ML 10ML VIAL (CATH LAB) 5000 UNIT IV (11:26)
[2025-08-06] MEDS: 0.9 % SODIUM CHLORIDE 500 ML 25 ML IV (11:26)
[2025-08-06 11:41] LABS: CATHL Activated Clotting Time 317 SEC (74-125)
[2025-08-06 11:58] LABS: Cholesterol 156 mg/dl (140-200); HDL Cholesterol 45 mg/dl (40-60); Triglycerides 59 mg/dl (30-150)
--- NOTE | 2025-08-06 13:14 | PC.NURSE ---
[phone] spoke with all three irrigation worker before 1000.
[2025-08-06 13:20] LABS: Hemoglobin A1C 8.2 % (4.0-6.0)
[2025-08-06] MEDS: ATORVASTATIN 40MG TABLET 40 MG PO (15:38)
--- OUTSIDE RECORDS SUMMARY | 2025-08-06 17:47 | XMS_ITS | CCD ---
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
--- OUTSIDE RECORDS SUMMARY | 2025-08-06 17:48 | XMS_ITS | Clinical Summary ---
Author Organization [facility] , [facility] Address [address] [place] [address] Phone Care Team Providers Care Centrex Radio Operator Name Role Phone Rocio Tavera APRN Unavailable [phone] Valdemar CINTRON, Arsh Hinkle Unavailable [phone] Cruz Casiano D.O. Primary Care Provider [phone] Reason for Referral Date Encounter Description Provider [...] On 4 1:20PM ; [facility] Past Visits Onset Date Resolved Date Provider Condition Status Soft Tissue Pain Lower Leg Right 06/11/2020 Arsh Aldrich MD Active Last Documented On 0 10:28AM ; [facility] Plan of Treatment No Plan of [...] By Onur Rick ; [facility] methylPREDNISolone 4 MG Oral Tablet Therapy Pack 09/07/2023 Provider: Rocio Tavera APRN Diagnosis: Last Documented On 4 1:20PM By Onur Rick ; [facility], [facility] Cyclobenzaprine HCl 5 MG Oral Tablet 08/25/2023 Prov ider: Neda Broderick Diagnosis: Last Documented On 4 1:20PM By Onur Rick ; [facility], [facility] predniSONE 10 MG (21) Oral Tablet Therapy Pack 023 Provider: Neda Davie Diagnosis: Last Documented On 4 1:20PM By Onur Rick ; [facility], [facility] diazePAM 2 MG Oral Tablet 08/23/2023 Provider: HAVEN SALGADO MD Diagnosis: Last Documented On 4 1:20PM By Onur Rick ; [facility], [facility] Past Medications on file Meloxicam 15 MG Oral Tablet 06/21/2020 - 09/19/2020 Pr ovider: Arsh Aldrich MD Diagnosis: Take 1/2 - 1 tablet daily Last Documented On 0 9:11AM By Kimberly Myrick ; [facility], [facility] Medications Administered Includes: Administered Medications from this encounter No Administered Medications Recorded Vital Signs Includes: Vital Signs from this encounter Vital Name 10/02/2023 01:47P Height (in) 62 Weight (lb) 170 Body Mass Index 31.1 Body Surface Area 1.8 Pain Level 5 Note: rahul Last Documented: On 10/02/2023 1:47PM ; [facility], [facility] Results Includes: Results discussed during this encounter [...] Documented On 4 9:49AM ; [facility], [facility] No recent change in diet 10/02/2023 Last Documented On 4 9:49AM ; [facility], [facility] Not a current smoker. 10/02/2023 Last Documented On 4 9:49AM ; [facility] Non-smoker 06/11/2020 Last Documented On 4 1:21PM ; [facility], [facility] No caffeine use 06/11/2020 Last Documented On 4 1:21PM ; [facility], [facility] No recent change in diet 06/11/2020 Last Documented On 4 1:21PM ; [facility], [facility] Not a current smoker. 06/11/2020 Last Documented On 4 1:21PM ; [facility], [facility] Not exercising regularly 06/11/2020 Last Documented On 4 1:21PM ; [facility], [facility] Not using alcohol 06/11/2020 Last Documented On 4 1:21PM ; [facility], [facility] Not using drugs 06/11/2020 Last Documented On 4 1:21PM ; [facility], [facility] Smoking Status Unknown Procedures and Surgical History Includes: Procedures from this encounter Procedures Code Diagnosis Performing Provider Service L ocation Service Date use of tobacco assessment performed 1000F Last Documented On 4 1:21PM ; [facility], [facility] patient screened for future fall risk: documentation of any fall with injury in past year 1100F Last Documented On 4 1:22PM ; [facility], [facility] review of medications documented 1160F Last Documented On 4 1:22PM ; [facility], [facility] referral to physician Last Documented On 4 1:21PM ; [facility], [facility] Pt received screening for fall risk G8270 Last Documented On 4 1:21PM ; [facility] [place] [address] Last Documented On 4 1:21PM ; [facility] Surgical History Last Updated History of hysterectomy 10/02/2023 Last Documented On 4 9:49AM ; [facility] Medical History Includes: Medical History addressed during this encounter Description Last Updated History of Stroke 10/02/2023 Last Documented On 4 9:49AM ; [facility] Arthritis 06/11/2020 Last Documented On 4 1:21PM ; [facility] History of diabetes mellitus 06/11/2020 Last Documented On 4 1:21PM ; [facility] History of Heart Attack / Stroke 020 Last Documented On 4 1:21PM ; [facility] No recent immunization for flu 0 Last Documented On 4 1:21PM ; [facility] No recent immunization for pneumococcal pneumonia 06/11/2020 Last Documented On 4 1:21PM ; [facility] Family History Includes: Family History addressed during this encounter Description Last Updated No significant family history 06/11/2020 Last Documented On 4 1:21PM ; [facility] Review of Systems Includes: Review [...] Time Diagnosis Physician Specified Flaquito Somers PA-C [facility] 10/02/19 24 1:15PM 2:19PM Insurance Includes: Active Insurance Policies Plan Name Member ID Group # Subscriber Relationship Effect dann Dates 1 - [employer] ([employer] Medicare [id number] Nanette Jorge Self 2 - [employer] [id number] Nanette Jorge Self Clinical Notes Includes: Clinical Notes from this encounter * Progress note Date Encounter Last Documented by 10/02/2023 Physician Specified Last shilpa nolasco on 10/04/2023; 9:49 AM, Flaquito Somers PA-C; [facility] Active Problems & Conditions - Neck Pain [...] has pain with range of motion. Good general administrator strength in bilateral upper extremities. No redness [...]
--- OUTSIDE RECORDS SUMMARY | 2025-08-06 17:48 | XMS_ITS | Data Portability ---
Author Organization [facility] Address [address] [place] [address] Assessment No assessment recorded. Plan of Treatment Reminders Order Date Submit Date Provider Last Modified By Organization Details Last Modified Time Details Appointments None recorded. Lab rapid SARS CoV + SARS CoV 2 Ag, QL IA, respirator y specimen 2020 [email or web address] [facility], [address] [facility], [place], [address], 13:47:28 magnesium, serum or plasma 2020 TESS [facility], [address], Jake [address], [place], [address], 08:18:37 CBC w/ auto diff 2020 [facility], [address], [place] [address], [place], [address], 08:18:36 TSH + free T4, serum 2020 [facility], [address], [address], [place], [address], 08:18:35 CMP, serum or plasma 2020 021 [facility], [address], [place] [address], [place], [address], 08:18:36 Referral None recorded. Procedures None recorded. Surgeries None recorded. Imaging None recorded. Medication Orders ropinirole 4 mg tablet 2020 021 [facility], [address] , [place], [address], 10:31:37 losartan 50 mg tablet 2020 021 [facility], [address] , [place], [address], 11:43:25 Patient TargetsNo targets recorded. Patient Instructions Encounter Date Encounter Id Patient Instructions Last Modified By Organization Details Last Modified Time 10/13/2020 [id number] Bill Coyle started this conversation with Yumiko Fortune Oct 13 MD Bill Coyle10:28 AM Get a copy of her DS from [employer] from about 2-3 weeks ago Get a copy of her DS from when she had the stroke a little over a year ago. It is recommended that the patient monitor their blood pressure at home and that they keep and bring a log of the blood pressure readings to future appointments. It is recommended that the patient follow up for recheck of the blood pressure, review of the log of home blood pressure measurements, and further management as required. Declines ENT referral at this time. [email or web address] Not available 10/13/2020 10:32:46 12/28/2020 [id number] Plan: - Patient instructed to self-quarantine with any family members. - Health Department and CDC information sheets completed and faxed. - RTC if s/sx persist or worsen. [email or web address] Not available 12/28/2020 13:20:41 Reason for Referral None Reported. Results Created Date Observation Date Name Description Value Unit Range Abnormal Flag Note LastModifiedBy Organization Detail LastModifiedTime 11/11/1911/11/2020 TSH + free T4, serum TSH 2.410 uIU/m L 0.450- 4.500 Not Available [facility] ([facility]) [address] [facility], [place], [address], 11/11/2020 08:18:35 11/11/19 21 11/11/2020 TSH + free T4, serum T4,free(dire ct) 1.34 NG/dL 0.82-1 .77 Not Available [facility] ([facility]) [address] [facility], [place], [address], 11/11/2020 08:18:35 11/11/19 21 11/11/2020 CBC w/ auto diff WBC 5.2 x10e3 /uL 3.4-10 .8 Not Available [facility] ([facility]) [address] [facility], [place], [address], 11/11/2020 08:18:35 11/11/19 21 11/11/2020 CBC w/ auto diff RBC 4.84 x10e6 /uL 3.77-5 .28 Not Available [facility] ([facility]) [address] [facility], [place], [address], 11/11/2020 08:18:35 11/11/19 21 11/11/2020 CBC w/ auto diff hemoglobin 13.6 g/dL 11.1-1 5.9 Not Available [facility] ([facility]) [address] [facility], [place], [address], 11/11/2020 08:18:35 11/11/19 21 11/11/2020 CBC w/ auto diff hematocrit 41.9 % 34.0-4 6.6 Not Available [facility] ([facility]) [address] [facility], [place], [address], 11/11/2020 08:18:35 11/11/19 21 11/11/2020 CBC w/ auto diff MCV 87 fL 79-97 Not Available [facility] ([facility]) [address] [place], [address], 11/11/2020 08:18:35 11/11/19 21 11/11/2020 CBC w/ auto diff MCH 28.1 pg 26.6-3 3.0 Not Available [facility] ([facility]) [address] [place], [address], 11/11/2020 08:18:35 11/11/19 21 11/11/2020 CBC w/ auto diff MCHC 32.5 g/dL 31.5-3 5.7 Not Available [facility] ([facility]) [address] [facility], [place], [address], 11/11/2020 08:18:35 11/11/19 21 11/11/2020 CBC w/ auto diff RDW 14.2 % 11.7-1 5.4 Not Available [facility] ([facility]) [address] [facility], [place], [address], 11/11/2020 08:18:35 11/11/19 21 11/11/2020 CBC w/ auto diff platelets 180 x10e3 /uL 150-45 0 Not Available [facility] ([facility]) [address] [facility], [place], [address], 11/11/2020 08:18:35 11/11/19 21 11/11/2020 CBC w/ auto diff neutrophils 55 % not estab. Not Available [facility] ([facility]) [address] [facility], [place], [address], 11/11/2020 08:18:35 11/11/19 21 11/11/2020 CBC w/ auto diff lymphs 33 % not estab. Not Available [facility] ([facility]) [address] [facility], [place], [address], 11/11/2020 08:18:35 11/11/19 21 11/11/2020 CBC w/ auto diff monocytes 9 % not estab. Not Available [facility] ([facility]) [address] [place], [address], 11/11/2020 08:18:35 11/11/19 21 11/11/2020 CBC w/ auto diff eos 2 % not estab. Not Available [facility] ([facility]) [address] [place], [address], 11/11/2020 08:18:35 11/11/19 21 11/11/2020 CBC w/ auto diff basos 1 % not estab. Not Available [facility] ([facility]) [address] [facility], [place], [address], 11/11/2020 08:18:35 11/11/19 21 11/11/2020 CBC w/ auto diff immature cells CHIEF MEDICAL PHYSICIST Not Available [facility] ([facility]) [address] [facility], [place], [address], 11/11/2020 08:18:35 11/11/19 21 11/11/2020 CBC w/ auto diff neutrophils (absolute) 2.9 x10e3 /uL 1.4-7. 0 Not Available [facility] ([facility]) [address] [facility], [place], [address], 11/11/2020 08:18:35 11/11/19 21 11/11/2020 CBC w/ auto diff lymphs (absolute) 1.7 x10e3 /uL 0.7-3. 1 Not Available [facility] ([facility]) [address] [facility], [place], [address], 11/11/2020 08:18:35 11/11/19 21 11/11/2020 CBC w/ auto diff monocytes(ab solute) 0.5 x10e3 /uL 0.1-0. 9 Not Available [facility] ([facility]) [address] [facility], [place], [address], 11/11/2020 08:18:35 11/11/19 21 11/11/2020 CBC w/ auto diff eos (absolute) 0.1 x10e3 /uL 0.0-0. 4 Not Available [facility] ([facility]) [address] [facility], [place], [address], 11/11/2020 08:18:35 11/11/19 21 11/11/2020 CBC w/ auto diff baso (absolute) 0.0 x10e3 /uL 0.0-0. 2 Not Available [facility] ([facility]) [address] [place] [place], [address], 11/11/2020 08:18:35 11/11/19 21 11/11/2020 CBC w/ auto diff immature granulocytes 0 % not estab. Not Available [facility] ([facility]) [address] [place] [place], [address], 11/11/2020 08:18:35 11/11/19 21 11/11/2020 CBC w/ auto diff immature grans (abs) 0.0 x10e3 /uL 0.0-0. 1 Not Available [facility] ([facility]) [address] [place], [address], 11/11/2020 08:18:35 11/11/19 21 11/11/2020 CBC w/ auto diff NRBC CHIEF MEDICAL PHYSICIST Not Available [facility] ([facility]) [address] [place], [address], 11/11/2020 08:18:35 11/11/19 21 11/11/2020 CBC w/ auto diff hematology comments: CHIEF MEDICAL PHYSICIST Not Available [facility] ([facility]) [address] [place], [address], 11/11/2020 08:18:35 11/11/19 21 11/11/2020 CMP, serum or plasm a glucose 136 mg/dL 65-99 above high normal Not Available [facility] ([facility]) [address] [place], [address], 11/11/2020 08:18:36 11/11/19 21 11/11/2020 CMP, serum or plasm a BUN 29 mg/dL 8-27 above high normal Not Available [facility] ([facility]) [address] [place], [address], 11/11/2020 08:18:36 11/11/19 21 11/11/2020 CMP, serum or plasm a creatinine 1.17 mg/dL 0.57-1 .00 above high normal Not Available [facility] ([facility]) [address] [place], [address], 11/11/2020 08:18:36 11/11/19 21 11/11/2020 CMP, serum or plasm a eGFR if nonafricn AM 44 mL/mi n/1.7 3 >59 below low normal Not Available [facility] ([facility]) [address] [place], [address], 11/11/2020 08:18:36 11/11/19 21 11/11/2020 CMP, serum or plasm a eGFR if africn AM 51 mL/mi n/1.7 3 >59 below low normal Not Available [facility] ([facility]) [address] [place], [address], 11/11/2020 08:18:36 11/11/19 21 11/11/2020 CMP, serum or plasm a BUN/creatini ne ratio 25 12-28 Not Available [facility] ([facility]) [address] [place], [address], 11/11/2020 08:18:36 11/11/19 21 11/11/2020 CMP, serum or plasm a sodium 143 mmol/ L 134-14 4 Not Available [facility] ([facility]) [address] [place], [address], 11/11/2020 08:18:36 11/11/19 21 11/11/2020 CMP, serum or plasm a potassium 4.0 mmol/ L 3.5-5. 2 Not Available [facility] ([facility]) [address] [place], [address], 11/11/2020 08:18:36 11/11/19 21 11/11/2020 CMP, serum or plasm a chloride 105 mmol/ L 96-106 Not Available [facility] ([facility]) [address] [place], [address], 11/11/2020 08:18:36 11/11/19 21 11/11/2020 CMP, serum or plasm a carbon dioxide, total 24 mmol/ L 20-29 Not Available [facility] ([facility]) [address] [place], [address], 11/11/2020 08:18:36 11/11/19 21 11/11/2020 CMP, serum or plasm a calcium 9.7 mg/dL 8.7-10 .3 Not Available [facility] ([facility]) [address] [place], [address], 11/11/2020 08:18:36 11/11/1911/11/2020 CMP, serum or plasm a protein, total 7.6 g/dL 6.0-8. 5 Not Available [facility] ([facility]) [address] [place], [address], 11/11/2020 08:18:36 11/11/1911/11/2020 CMP, serum or plasm a albumin 4.4 g/dL 3.7-4. 7 Not Available [facility] ([facility]) [address] [place], [address], 11/11/2020 08:18:36 11/11/1911/11/2020 CMP, serum or plasm a globulin, total 3.2 g/dL 1.5-4. 5 Not Available [facility] ([facility]) [address] [place], [address], 11/11/2020 08:18:36 11/11/1911/11/2020 CMP, serum or plasm a A/G ratio 1.4 1.2-2. 2 Not Available [facility] ([facility]) [address] [place], [address], 11/11/2020 08:18:36 11/11/19 21 11/11/2020 CMP, serum or plasm a bilirubin, total 0.5 mg/dL 0.0-1. 2 Not Available [facility] ([facility]) [address] [place], [address], 11/11/2020 08:18:36 11/11/19 21 11/11/2020 CMP, serum or plasm a alkaline phosphatase 102 IU/L 39-117 Not Available [facility] ([facility]) [address] [place], [address], 11/11/2020 08:18:36 11/11/19 21 11/11/2020 CMP, serum or plasm a AST (SGOT) 14 IU/L 0-40 Not Available [facility] ([facility]) [address] [place], [address], 11/11/2020 08:18:36 11/11/19 21 11/11/2020 CMP, serum or plasm a ALT (SGPT) 10 IU/L 0-32 Not Available [facility] ([facility]) [address] [place], [address], 11/11/2020 08:18:36 11/11/19 21 11/11/2020 magne sium, serum or plasm a magnesium 2.1 mg/dL 1.6-2. 3 Not Available [facility] ([facility]) [address] [place], [address], 11/11/2020 08:18:37 12/29/19 21 12/28/2020 rapid SARS CoV + SARS CoV 2 Ag, QL IA, respi rator y speci men SARS CoV antigen Positi ve Not Available [facility] [address], [place], [address], 12/28/2020 12:41:15 Result Notes None recorded. Problems Name Problem SNOMED Code Status Onset Date Resolution Date Notes Provider Name and Address Organization Details Recorded Time Acute stroke 2181985096732 04 Active 2020 Yumiko Devika null, [place] - [facility] 09:42:22 Essential hypertensio n 07435688 Active 2020 Yumiko Devika [place], [place] - [facility] 09:42:48 Restless legs syndrome 87895385 Active 2020 Yumiko Devika [place], [place] - [facility] 09:43:01 Edema 065329252 Active 2020 Yumiko Devika [place], [place] - [facility] 09:47:36 History of cerebrovasc ular accident with residual deficit 298267549 Active 2020 Bill Coyle MD [address], [place], [address], [place] - [facility] 1 10:05:35 Type 2 diabetes mellitus without complicatio n 552354158 Active 2020 Bill Coyle MD [address], [place], [address], [place] [facility] 1 10:05:37 Hemiplegia and/or hemiparesis following stroke 8952681105874 7 Active 2020 Bill Coyle MD [address], [place], [address], [place] - [facility] 1 10:05:56 Hypothyroid ism 92226732 Active 2020 Bill Coyle MD [address], [place], [address], [place] - [facility] 1 10:08:16 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 Bill Coyle MD [address], [place], [address], [place] - [facility] 1 10:14:10 Body mass index 30+ - obesity 738569680 Active 2020 Bill Coyle MD [address], [place], [address], [place] [facility] 1 10:14:52 Edema of lower extremity 621277992 Active 2020 Bill Coyle MD [address], [place], [address], [place] [facility] 1 10:31:13 Anxiety 95360345 Active 2020 Bill Coyle MD [address], [place], [address], [place] - [facility] 1 10:14:59 Depressive disorder 57767598 Active 2020 Bill Coyle MD [address], [place], [address], [place] [facility] 1 10:15:05 Dizziness 262939439 Active 2020 Bill Coyle MD [address], [place], [address], [place] [facility] 1 19:45:31 Fatigue 20655546 Active 2020 Bill Coyle MD [address], [place], [address], [place] [facility] 1 19:45:34 Exposure to SARS-CoV-2 Active 2020 Elodia Dominguez [facility], [place] - [facility] 1 12:41:11 COVID-19 752547464 Active 2020 Cisco Presley APRN [address], [place], [address], [place] - [facility] 1 13:20:20 Problem Notes None recorded. Procedures Surgical History Date Name Laterality Status Provider Name and Address Organization Details Recorded Time total knee replacement completed Yumiko Devika [place] - [facility] 10/13/2020 09:46:19 Back Surgery completed Yumiko Devika [place] - [facility] 10/13/2020 09:46:25 Imaging Results None recorded. Procedure Notes None recorded. Medical Equipment None Reported. Allergies No known drug allergies Medications Name Sig Start Date Stop Date Status Note LastModified by Organization Details LastModified Time losartan 50 mg tablet Take 1 tablet twice a day by oral route. active Not Available Not Available No t Available doxycycline hyclate 100 mg capsule active Not Available Not Available N ot Available doxepin 25 mg capsule 10/13 completed Not Available Not Available Not Available carbidopa 25 mg-levodopa 250 mg tablet 10/13 completed Not Available Not Available Not Available meloxicam 15 mg tablet active Not Available Not Available Not Available prednisone 20 mg tablet 10/13 completed Not Available Not Available Not Available hydralazine 25 mg tablet 1 tablet po q12h active Not Available Not Available No t Available acetaminoph en 300 mg-codeine 30 mg tablet 1 tablet po prn 10/13 completed Not Available Not Available Not Available clopidogrel 75 mg tablet take 1 tablet po daily for stroke preventio n active Not Available Not Available No t Available amlodipine 5 mg tablet 10/13 completed Not Available Not Available Not Available acyclovir 400 mg tablet 1 tablet po three times daily 11/10 completed Not Available Not Available Not Available levothyroxi ne 75 mcg tablet 1 tablet po qd active Not Available Not Available No t Available dexamethaso ne 0.5 mg/5 mL oral elixir 10/13 completed Not Available Not Available Not Available doxazosin 8 mg tablet 10/13 completed Not Available Not Available Not Available potassium chloride ER 20 mEq tablet,exte nded release(par t/cryst) take 2 tablets po qd active Not Available Not Available No t Available trazodone 100 mg tablet 10/13 completed Not Available Not Available Not Available dexamethaso ne 4 mg tablet active Not Available Not Available Not Available gabapentin 300 mg capsule 10/13 completed Not Available Not Available Not Available doxazosin 4 mg tablet 10/13 completed Not Available Not Available Not Available hydrochloro thiazide 25 mg tablet 1 tablet po qd in the morning active Not Available Not Available No t Available furosemide 20 mg tablet 1 tablet po prn for swelling active Not Available Not Available No t Available lovastatin 20 mg tablet 10/13 completed Not Available Not Available Not Available methylpredn isolone 4 mg tablets in a dose pack 10/13 completed Not Available Not Available Not Available albuterol sulfate HFA 90 mcg/actuati on aerosol inhaler active Not Available Not Available Not Available ropinirole 4 mg tablet take 2 tablets po at 2pm take 2 tabletat 5pm, and take 2 tablets at bedtime. active Not Available Not Available No t Available escitalopra m 20 mg tablet 10/13 completed Not Available Not Available Not Available metformin ER 750 mg tablet,exte nded release 24 hr 1 tablet po qd active Not Available Not Available No t Available potassium chloride ER 10 mEq tablet,exte nded release(par t/cryst) take 1 tablet po prn ( to be taken with furosemid e for swelling) active Not Available Not Available No t Available pregabalin 100 mg capsule 10/13 completed Not Available Not Available Not Available chlorhexidi ne gluconate 0.12 % mouthwash 10/13 completed Not Available Not Available Not Available Vitals Date Recorded Body weight Body mass index (BMI) Body height Heart rate Oxygen saturation Respiratory rate Body temperature Pain severity - 0-10 verbal numeric rating [Score] - Reported Systolic And Diastolic Provider Name and Address Organization Details Last Updated DateTime 1 95936.3 7 g 34.4 kg/m2 157.48 cm 66 /min 94 % 18 /min 98.1 [degF] 0 128/72 mm[Hg] Yumikonatasha Kamaral [place] - [facility] 09:49:42 Date Recorded Body height Body mass index (BMI) Body weight Body temperature Heart rate Oxygen saturation Respiratory rate Pain severity - 0-10 verbal numeric rating [Score] - Reported Systolic And Diastolic Provider Name and Address Organization Details Last Updated DateTime 1 157.48 cm 33.9 kg/m2 48814.3 9 g 98.3 [degF] 68 /min 94 % 18 /min 0 138/83 mm[Hg] Yumiko Kamaral [place] - [facility] 1 10:09:31 Date Recorded Body height Body temperature Heart rate Oxygen saturation Respiratory rate Pain severity - 0-10 verbal numeric rating [Score] - Reported Systolic And Diastolic Provider Name and Address Organization Details Last Updated DateTime 1 157.48 cm 98.7 [degF] 68 /min 96 % 18 /min 0 138/82 mm[Hg] Elodia Dominguez [place] - [facility] 12:40:47 Social History Question Answer Notes LastModified by Organizat ion Details LastModified Time Tobacco Smoking Status Never Smoker Yumiko blackburn [place] - [facility] 10/13/2020 09:44:35 Are You Blind Or Do You Have Difficulty Seeing? No Information not available 10/13/2020 What Is Your Level Of Caffeine Consumption? Occasional Information not available 10/13/2020 Are You Deaf Or Do You Have Serious Difficulty Hearing? No Information not available 10/13/2020 What Type Of Diet Are You Following? REGULAR Information not available 10/13/2020 What Is The Highest Grade Or Level Of School You Have Completed Or The Highest Degree You Have Received? [id number] Information not available 10/13/2020 How Hard Is It For You To Pay For The Very Basics Like Food, Housing, Medical Care, And Heating? [id number] Information not available 10/13/2020 Hard Of Hearing Or Deaf In One Or Both Ears? No Information not available 10/13/2020 Legally Blind In One Or Both Eyes? No Information no t available 10/13/2020 Live Alone Or With Others? With Others Information not available 10/13/2020 What Was The Date Of Your Most Recent Tobacco Screening? 11/10/2020 Information not available 11/10/2020 How Many Children Do You Have? 4 Information not available 10/13/2020 What Is Your Relationship Status? Information not available 10/13/2020 Seat Belts Used Routinely Yes Information not available 10/13/2020 Smoke Alarm In Home Yes Information not available 10/13/2020 Do You Have Difficulty Walking Or Climbing Stairs? Yes Information not available 10/13/2020 Sex: Female Functional Status Question Answer Note LastModified by Organization D etails LastModified Time What is your level of alcohol consumption? None Information not available 10/13/2020 Are you currently employed? No Information not available 10/13/2020 Do you have difficulty doing errands alone? No Information not available 10/13/2020 Are you able to care for yourself independently? Yes Information not available 10/13/2020 Do you have difficulty dressing, bathing, grooming, or toileting? No Information not available 10/13/2020 Mental Status Question Answer Note LastModified by Organizat ion Details LastModified Time Do you feel stressed (tense, restless, nervous, or anxious, or unable to sleep at night)? [id number] Information not available 10/13/2020 Do you have difficulty concentrating, remembering or making decisions? Yes remembering things Information not available 10/13/2020 Family History Relationship Description Onset Age of this Age Resolved Age Notes LastModified by Organization Details LastModified Time Mother Kidney disease Not available 2020 09:44:28 Medical History No medical history recorded. Gynecological History Statement/Question Response Menses Monthly N Abnormal Pap N Date of Last Pap Smear Date of Last Colonoscopy Date of Last Mammogram Obstetrics History GPAL:G 4 P 0 0 0 0 Past Encounters Encounter ID Performer Location Encounter Start Date Encounter Closed Date Diagnosis/Indication Diagnosis SNOMED-CT Code Diagnosis ICD10 Code Diagnosis IMO Codes Diagnosis Note [id number] Bill Coyle MD [facility] [address] [place] [address] 10/13/2020 09:27:39 10/13/2020 10:42:55 Essential hypertension 90528802 I10 Restless l egs syndrome 45524037 G25.81 Type 2 pineda betes mellitus without complication 468752677 E11.9 History of cerebrovascular accident with residual deficit 629754625 Z86.73 L hemiparesi s (now much improved). Hemiplegia and/or hemiparesis following stroke 9855256929 9107 I69.359 left Body mass index 30+ - obesity 874342719 Z68.34 Edema of l ower extremity 141273291 R60.0 [id number] Bill Coyle MD [facility] [address] [place] [address] 11/10/2020 10:00:50 11/10/2020 11:11:36 Essential hypertension 23103102 I10 Dizziness 689654882 R42 Hypothyroidism 49347512 E03.9 Fatigue 39850668 R53.83 Long-term drug therapy 536272744 Z79.899 Hemiplegia and/or hemiparesis following stroke 2423766038 9107 I69.359 left History of cerebrovascular accident with residual deficit 602478608 Z86.73 L hemiparesi s (now much improved). [id number] PHILIP Lofton [facility] [address] [place] [address] 12/28/2020 12:35:22 12/28/2020 13:17:44 Exposure to SARS-CoV-2 884432042 Z20.822 COVID-19 652797766 U07.1 Health Concerns Section Related Observation LastModified by Organization Detai ls LastModified Time None Recorded Concern Status LastModified by Organization Details LastModified Time None Recorded Advance Directives Directive None Recorded Payers Insurance Date Sequence Insurance Name Policy Number Policy Navarro Covered Member ID Navarro Member ID Guarantor Name 01/03/2021 2 [place] [id number] Nanette Mitchell [id number] Nanette Mitchell 02/22/2021 1 [place] Nanette Mitchell [id number] Nanette Mitchell 12/09/2020 2 UNSPECIFIED REMIT PAYOR Nanette Mitchell 02/22/2021 [employer] [id number] Nanette Mitchell [id number] Nanette Mitchell Notes Date Note Type Note Provider Name and Address Organization Details Recorded Time 10/13/2020 text/html ROS as noted in the HPI The patient is here today to establish care.She is fasting today. The patient notes that she has had RLS for many years. She has been evaluated by neurology for this. She takes a large dose of ropinirole for this. We discussed that this dose is in excess of the listed maximum does for RLS. The patient states that she has been taking this dose for a couple of years (since seeing neurology). About 2 weeks ago she was seen in the ER at [facility] for shortness of breath and leg edema. She was admitted to the hospital for two days. History of stroke with L hemiparesis (now much improved). July of 2019. Patient attributes the stroke to HTN. She was first treated at [facility] and transferred to [facility]. Patient states that she has not taken a statin. Today she is doing pretty good .No HANo shortness of breath.She does have some wheezing at night. She takes albuterol for this.She still has some swelling of her legs (improved). Uses walkerHere today cane+ assistance Bill Coyle MD [address], [place], [address], [facility] 10/17/2020 20:32:39 11/10/2020 text/html The patient is here today for a follow up on hypertension.She is fasting today and has BP log with her. 137/77 [id number]/01529/[id number] 48/83863/[id number]/951 59/68049/79456/75 She notes that she has some dizziness, hard to walk', feels like my heads going around. While walking. She skipped her thyroid medication yesterday because it said on the bottle that it might cause dizziness. Bill Coyle MD [address], [place], [address], [facility] 11/21/2020 19:46:36 12/28/2020 text/html COVID-19 Symptom(s)Reported by PatientUpper Respiratory SymptomsFor covid-19 signs and symptoms, patient reportscough worsening,headache worsening, andsore throat worsening. For quality, patient reportsdry cough. For associated symptoms, patient reportsno sputum production,no wheezing,no runny nose,no vomiting,no diarrhea,no body aches,no nausea,no change in mental status,no hypotension, andno tachycardia. Nanette Mitchell is in the office with a sore throat. Her tested COVID+ about 10 days ago. Cisco Presley APRN [address], [place], [address], [facility] 02/09/2021 14:30:48 OBGyn Episode No OBEpisode recorded.
--- OUTSIDE RECORDS SUMMARY | 2025-08-06 17:48 | XMS_ITS | Clinical Summary ---
Author Organization [employer] ([place], [place], [place], [place], [place]) Address [address] [place] [address] Care Team Providers Care Cardio Clinician Name Role Phone Rocio Tavera APRN Primary Care Provider [phone] Rocio Tavera BLENDER / COOK Unavailable [phone] Allergies No known active allergies Medications Hospital, [...] Date Ernie rded Speak language other than Swazi at home Not on file 09/20/2023 Want [...] Td or Tdap) 04/15/2031, 07/04/2001 Insurance #[address] [facility] ACCESS HMO MAP [facility] Care Teams Cardio Clinician Relationship Specialty Start Date End Date Rocio Tavera APRN PCP - General Family Medicine 11/29/22 Rocio Tavera APRN Referring Physician Family Medicine 11/29/22
--- OUTSIDE RECORDS SUMMARY | 2025-08-06 17:48 | XMS_ITS | Data Portability ---
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 Patient declines medication to treat her hyperlipidemia . Instead, she plans to watch her diet more strictly. 2. Patient to discontinue the Neupro, taper off the Sinemet, and taper up on the ropinirole dose as directed by her neurologist, Dr. Abebe Greenwood. 3. Patient to continue her other medications as previously prescribed. 4. Health maintenance: Colonoscopy [place] [address] Dean was normal. Mammogram due now. Bone density due now. 5. Patient will be referred for mammogram. 6. Patient will be referred for bone density testing. 7. Patient to follow-up here in 4 weeks to recheck her lipids with diet. [email or web address] Not available 11/19/2018 11:11:19 Plan of Treatment Reminders Order Date Submit Date Provider Last Modified By Organization Details Last Modified Time Details Appointments None recorded. Lab None recorded. Referral None recorded. Procedures None recorded. Surgeries None recorded. Imaging None recorded. Medication Orders Carafate 1 gram tablet [address] [facility], [address] [place] [address] , [place], [address], 18:35:25 EpiCeram topical emulsion, extended release 2020 021 [facility] (New Address), [address] [place] [address], [address], [place], [place], [id number], 1 18:35:25 ropinirol e 1 mg tablet 2018 019 [facility], [address] [place] [address] [place], [address], 9 10:35:15 ropinirol e 1 mg tablet 2018 019 [facility], [address] [place] [address] [place], [address], 9 12:35:14 Patient TargetsNo targets recorded. Patient Instructions Encounter Date Encounter Id Patient Instructions Last Modified By Organization Details Last Modified Time 11/19/2018 [id number] restless legs syndrome: care instructions [email or web address] Not available 11/19/2018 10:55:03 elevated blood pressure: care instructions csuttor Not available 11/19/2018 10:55:03 high cholesterol : care instructions csuttor Not available 11/19/2018 10:55:03 learning about high cholesterol csuttor Not available 11/19/2018 10:56:31 low cholesterol diet csuttor Not available 11/19/2018 10:56:31 learning about mood disorders csuttor Not available 11/19/2018 10:55:03 12/31/2018 [id number] restless legs syndrome: care instructions Not available 12/31/2018 12:13:50 snoring: care instructions Not available 12/31/2018 12:13:50 CARPAL TUNNEL SYNDROME-LC Not available 12/31/2018 12:13:49 She returns in follow-up today. Overall, she's doing a little better. Her iron studies and ferritin level were normal. She has stopped Sinemet and Neupro. Her restless leg symptoms recently been starting at about 10:00 and get worse at 2 or 3:00 in the morning. I recommended increasing her bedtime dose of ropinirole and possibly taking a dose at 2 or 3:00 in the morning. I emailed a prescription for ropinirole to her pharmacy. I will see her back in 3 months. She's going to try trazodone to see if that might help with her insomnia as well. She's not started it yet. Not available 12/31/2018 12:57:08 04/03/2019 [id number] restless legs syndrome: care instructions Not available 04/03/2019 10:32:58 snoring: care instructions Not available 04/03/2019 10:32:57 home sleep testing* TESS Not available 04/22/2019 11:20:06 CARPAL TUNNEL SYNDROME-LC Not available 04/03/2019 10:32:58 She returns in follow-up today. Her restless leg symptoms have generally been doing well but worst in the last 4 weeks, mainly having symptoms at night. I will increase her ropinirole to total of 11 pills daily. I emailed a prescription to her pharmacy. We also discussed possible sleep apnea. She has history of loud snoring, nonrestorative sleep, has typical findings for TARAN on exam. I will arrange a polysomnogram and contact her with results. Discussed treatment options for sleep apnea, if moderate or severe, standard treatment would be CPAP. I will see her back in 6 months. We discussed her restless legs today as well as a new problem of suspected obstructive sleep apnea. She is using Requip 1 mg tablets. I told her we could switch to a larger milligram size once we find her optimal dose. Not available 04/03/2019 10:30:54 03/17/2021 [id number] 1. Rx epiceram topical- [facility] 2. Rx Carafarte 1mg- break in half and make into a slurry and apply to tongue for 30 days 3. See dentist to evaluate rough teeth 4. Follow up as needed [email or web address] Not available 03/17/2021 16:08:43 Reason for Referral None Reported. Results Created Date Observation Date Name Description Value Unit Range Abnormal Flag Note LastModifiedBy Organization Detail LastModifiedTime 04/22/20 19 04/18/2019 home sleep testi ng* No observ ation record ed. [facility] [address] [place] [address], [id number], 04/24/2019 12:12:06 Result Notes None recorded. Problems Name Problem SNOMED Code Status Onset Date Resolution Date Notes Provider Name and Address Organization Details Recorded Time Restless legs syndrome 80002026 Active 2018 ZOHAIB BURGOS MD [address] [place] [address], [phone], [facility] 9 10:47:48 Hypertensiv e disorder 86088189 Active 2018 ZOHAIB BURGOS MD [address] [place] [address], [phone], [facility] 9 10:49:33 [facility]CI current use of non-steroid al anti-inflam matory drug 9771909100396 03 Active 2018 ZOHAIB BURGOS MD [address] [place] [address], [address], [facility] 9 10:49:35 Mood disorder 88033935 Active 2018 ZOHAIB BURGOS MD [address] [place] [address], [phone], [facility] 9 10:49:37 Arthritis 9517021 Active 2018 ZOHAIB BURGOS MD [address] [place] [address], [phone], [facility] 9 10:49:40 Problem Notes None recorded. Procedures Surgical History None recorded. Imaging Results None recorded. Procedure Notes Documentation Provider Name and Address Organization Details Recorded Time [address] [place] [address] HOME SLEEP STUDY REPORT NAME: Nanette Mitchell DATE: 04/18/2019 CLINIC INDICATIONS: Nanette Mitchell is a 78-year-old F with 1. Snoring - She has a history of snoring. She does not have a sleeping partner. We don't know if she stops breathing, etc. She has been told that she snores loudly at night. When people sleep in her room, they go into another room because she snores so loudly.. Denies awakening herself snoring or gasping for breath. She's never had a tonsillectomy. Her son is a loud snorer but there is no documented family history of sleep apnea. She does have hypertension as a comorbidity. Her weight is stable. She does have moderate narrowing of the posterior oropharyngeal area on exam. She has moderately severe macroglossia. Soft palate is low lying. Neck circumference normal 13.5. Washington sleepiness scale increased at 11. BMI is 31. 2. Restless legs - She does describe an uncomfortable feeling in her legs which is relieved by moving her legs or walking. She's had symptoms ever since high school. No family history of restless legs. She does not have iron deficiency. Her ferritin level and iron studies are normal. She has been on Sinemet, Neupro, Mirapex, gabapentin and now she is on ropinirole. She thinks ropinirole works better than the other RLS meds. She has a very severe case of restless leg syndrome and has been on almost every medicine there is, including the Sinemet, Neupro, Mirapex, gabapentin. A suspicion of TARAN was raised and a home sleep study was suggested and performed. SUMMARY: Mrs. Mitchell underwent an overnight polysomnogram using a home study device with the recording of, nasal airflow, respiratory effort, continuous pulse oximetry, and pulse rate. The study began at 10:05:12 PM. The patient was monitored for a total of 432.6 minutes, out of which the patient slept for 432.5 minutes. Sleep efficiency was 100.0%. Sleep onset occurred at 10:05:18 PM for a sleep latency of 0.1 minutes. The study ended at 5:17:48 AM. During the study there were a total of 34 apneas that occurred for an apnea index of 4.7 /hour of sleep. There were a total of 46 hypopneas that occurred for a hypopnea index of 6.4 /hour of sleep. A total of 80 apnea and hypopneas were observed during the analysis period as follows: 34 obstructive apneas, 0 central apneas, 0 mixed apneas, and 46 hypopneas for an apnea/hypopnea index (AHI) of 11.1 /hour of sleep. Yaya Lo was not observed. During this time 63 desaturations occurred during the study. Desaturations were based on 4% or greater drop from baseline. The lowest SaO2 was 81% with an average of 88%. The minimum SpO2 value associated with a respiratory event was 81%. The patient snored during sleep. The average pulse rate during sleep was 58.9 bpm. The highest pulse rate during sleep was 84 bpm. The highest pulse rate during recording was 84 bpm. Nanette Mitchell PAGE TWO IMPRESSION: Obstructive sleep apnea overall mild for the whole night but severe with supine sleep. She had 34 apneas and 46 hypopneas. Her overall AHI is 11.1, supine 49.7, nonsupine 4.9. She only slept in the supine position for 60 out of 370 minutes. She snored for 87% of the time during sleep. She had mild to moderate oxygen saturation down to 81%. RECOMMENDATIONS: CPAP Fauzia blackburn [facility] 04/28/2019 12:57:31 Medical Equipment None Reported. Allergies No known drug allergies Medications Name Sig Start Date Stop Date Status Note LastModified by Organization Details LastModified Time metformin 500 mg tablet Take 1 tablet every day by oral route. 03/17 completed Not Available Not Available Not Available ropinirol e 1 mg tablet 11 pills daily as needed for restless legs 2 in the morning, 2 at 5:00 and 6 or 7 in the evening, as needed 2018 active Not Available Not Available Not Avai lable trazodone 50 mg tablet Take 4 tablets every day by oral route. 03/17 completed Not Available Not Available Not Available felodipin e ER 2.5 mg tablet,ex tended release 24 hr Daily 11/12 completed Duration : 30 days;Mian quency: daily;Me dication Descript ion: felodipi ne; Dosage:1 ; Route:or al; refills: 0; Quantity :30 tablet, extended release Not Available Not Available Not Available Carafate 1 gram tablet break in half and make into a slurry and apply to tongue for 30 days 2020 active Not Available Not Available Not Avai lable indapamid e 2.5 mg tablet Every morning 04/03 completed Duration : 30 days;Mian quency: qam;Medi cation Descript ion: indapami de; Dosage:1 ; Route:or al; refills: 0; Quantity :30 tablet Not Available Not Available Not Available felodipin e ER 5 mg tablet,ex tended release 24 hr Take 1 tablet every day by oral route. 03/17 completed Not Available Not Available Not Available tramadol 50 mg tablet Three times a day 11/12 completed Frequenc y: tid;Medi cation Descript ion: tramadol ; Route:or al; refills: 0 Not Available Not Available Not Available terbinafi ne HCl 250 mg tablet Take 1 tablet every day by oral route. 03/17 completed Not Available Not Available Not Available ropinirol e 0.5 mg tablet Take 1 tablet 3 times a day by oral route. 11/19 completed Not Available Not Available Not Available losartan 50 mg-hydroc hlorothia zide 12.5 mg tablet Take 1 tablet every day by oral route. active Not Available Not Available No t Available Naprosyn 500 mg tablet Take 1 tablet twice a day by oral route. 03/17 completed Not Available Not Available Not Available Sinemet 25 mg-250 mg tablet Take 1 tablet 4 times a day by oral route. 03/17 completed Not Available Not Available Not Available Lexapro 10 mg tablet Daily 03/17 completed Duration : 30 days;Mian quency: daily;Me dication Descript ion: escitalo pram; Dosage:1 ; Route:or al; refills: 0; Quantity :30 tablet Not Available Not Available Not Available carbidopa 10 mg-levodo pa 100 mg disintegr ating tablet As Directed 11/12 completed Frequenc y: as direct.; Medicati on Descript ion: carbidop a-levodo pa; Route:or al; refills: 0; Quantity :0 Not Available Not Available Not Available Vitamin C Daily 11/13 completed Frequenc y: daily;Me dication Descript ion: ascorbic acid; Route:or al; refills: 0 Not Available Not Available Not Available potassium chloride Daily 03/17 completed Frequenc y: daily;Me dication Descript ion: potassiu m chloride ; Dosage:4 ; Route:or al; refills: 5; Quantity :30 Not Available Not Available Not Available aspirin 81mg 03/17 completed Not Available Not Available Not Available levothyro xine active Not Available Not Available Not Available clopidogr el active Not Available Not Available Not Available metformin active Not Available Not Sumi ilable Not Available Neupro 3 mg/24 hour transderm al 24 hour patch Apply 1 patch every day by transder mal route. 11/19 completed Not Available Not Available Not Available EpiCeram topical emulsion, extended release apply to lips bid for 10 days 2020 active Not Available Not Available Not Avai lable Vitals Date Recorded Body height Body mass index (BMI) Body weight Body temperature Heart rate Respiratory rate Oxygen saturation Systolic And Diastolic Provider Name and Address Organization Details Last Updated DateTime 9 157.48 cm 32 kg/m2 97766.6 6 g 97.5 [degF] 68 /min 16 /min 95 % 102/70 mm[Hg] Camila Blake [facility] 9 10:45:13 Date Recorded Body height Body mass index (BMI) Body weight Heart rate Systolic And Diastolic Provider Name and Address Organization Details Last Updated DateTime 12/31/2018 157.48 cm 32.7 kg/m2 63387.03 g 68 /min 174/90 mm[Hg] Modesta Agosto [facility] 9 11:23:28 Date Recorded Body height Body mass index (BMI) Body weight Body temperature Heart rate Systolic And Diastolic Provider Name and Address Organization Details Last Updated DateTime 1 157.48 cm 34.4 kg/m2 67866.0 7 g 97.2 [degF] 81 /min 157/71 mm[Hg] Maren Santillans [facility] 1 15:12:33 Date Recorded Body height Body mass index (BMI) Body weight Heart rate Systolic And Diastolic Provider Name and Address Organization Details Last Updated DateTime 04/03/2019 157.48 cm 31.3 kg/m2 15960.3 g 64 /min 172/86 mm[Hg] Modesta Agosto [facility] 9 09:37:16 Social History Question Answer Notes LastModified by Organizat ion Details LastModified Time Tobacco Smoking Status Never Smoker Camila Blake [facility] 11/12/2018 10:38:10 What Is Your Level Of Caffeine Consumption? Occasional [email or web address] Information not available 11/12/2018 How Much Tobacco Do You Chew? None [email or web address] Information not available 11/12/2018 What Type Of Diet Are You Following? REGULAR Information not available 11/12/2018 Which Illicit Or Recreational Drugs Have You Used? No [email or web address] Information not available 11/12/2018 Education 12 [email or web address] Information no t available 11/12/2018 Are There Any Guns Present In Your Home? No [email or web address] Information not available 11/12/2018 Live Alone Or With Others? Alone Information not available 11/12/2018 What Was The Date Of Your Most Recent Tobacco Screening? 12/31/2018 Information not available 10/28/2019 How Many Children Do You Have? 4 [email or web address] Information not available 11/12/2018 Performs Monthly Self-breast Exam? Yes [email or web address] Information no t available 11/12/2018 Seat Belts Used Routinely Yes [email or web address] Information not available 11/12/2018 Are You Sexually Active? No [email or web address] Information not available 11/12/2018 Smoke Alarm In Home Yes [email or web address] Information not available 11/12/2018 General Stress Level Medium [email or web address] Information not available 11/12/2018 Do You Use Sunscreen Routinely? Yes [email or web address] Information not available 11/12/2018 Sex: Unknown Functional Status Question Answer Note LastModified by Organization D etails LastModified Time What is your level of alcohol consumption? None [email or web address] Information not available 11/12/2018 Are you currently employed? No [email or web address] Information not available 11/12/2018 Are you able to care for yourself independently? Yes [email or web address] Information not available 11/12/2018 What is your occupation? retired [email or web address] Information not available 11/12/2018 What is your exercise level? None [email or web address] Information not available 11/12/2018 Mental Status None recorded. Family History Relationship Description Onset Age of this Age Resolved Age Notes LastModified by Organization Details LastModified Time Son Malignant neoplasm of tonsil [email or web address] Not available 2018 10:40:05 Mother Hypertensive disorder [email or web address] Not available 2018 10:40:17 Brother Carcinoma of prostate [email or web address] Not available 2018 10:40:28 Medical History Condition Response Coronary Artery Disease N Gout N Atrial Fibrillation N Kidney Stones N Hyperthyroidism N Depression N COPD N Anxiety Disorder N Obesity N Arthritis Y Mental Disorder N Cancer N Stroke N Fibromyalgia N Kidney Disease N MRSA exposure N Tuberculosis N AIDS/HIV N Asthma N Pulmonary Embolism N Chronic Ear Infections N Hypothyroidism N Difficulty Swallowing N Meniere's disease N High Cholesterol N Liver Disease N Parkinson's Disease N Alzheimer's N Anemia N Neurological Problems Y Diabetes N Congestive Heart Failure (CHF) N Diverticulitis N Reflux/GERD N Heart Disease N Hypertension N Osteoporosis N Gynecological HistoryNo gynecological history recorded. Obstetrics History GPAL:G 0 P 0 0 0 0 Past Encounters Encounter ID Performer Location Encounter Start Date Encounter Closed Date Diagnosis/Indication Diagnosis SNOMED-CT Code Diagnosis ICD10 Code Diagnosis IMO Codes Diagnosis Note [id number] ZOHAIB BURGOS MD INTERNAL MEDICINE 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 Positive Tinel sign over the right median nerve at the wrist. I suspect she has carpal tunnel. Restless l egs syndrome 25590741 G25.81 She is seen in consultati on today for restless leg syndrome. She has severe restless leg syndrome. She does describe an uncomforta ble feeling in her legs which is relieved by moving her legs or walking. She's had symptoms ever since high school. Currently, she is taking Sinemet 25/250 4 times a day, Neupro patch 3 mg daily and ropinirole 0.5 mg 3 times a day. The Neupro patches are expensive, cost about $700 a month. I told her that Sinemet can cause augmentati on, which is worsening of restless leg symptoms into the daytime. I think would be good to get her off the Sinemet. I specifical ly recommende d she stop the Neupro patch. I refilled her Sinemet prescripti on and recommende d gradually tapering off the Sinemet over several weeks. I sent in a prescripti on to gradually increase her dose of ropinirole to 1 mg 2 pills 3 times a day. Her ferritin level and iron studies are pending. I will see her back in 6 or 8 weeks. She has a very severe case of restless leg syndrome and has been on almost every medicine there is, including the 3 medicines above, as well as Mirapex and gabapentin . Snoring 90785220 R06.83 she does have a history of snoring. She does not have a sleeping partner. We don't know if she stops breathing, etc. [id number] ZOHAIB BURGOS MD INTERNAL MEDICINE [facility] [address] [address] 11/19/2018 10:33:06 11/19/2018 11:03:24 Restless legs syndrome 51330225 G25.81 On 11/12/18, her total iron was 81 and ferritin 96. On 11/13/18, patient had a neurology evaluation of her restless legs by . Dr. Abebe Greenwood, who instructed the patient to discontinu e the Neupro, taper off the Sinemet, and taper up on the ropinirole dose. Patient was instructed to follow-up in 6-8 weeks. 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 Hyperlipidemia 61154135 E78.5 On 11/12/18, her total cholestero l was 233, HDL 53, triglyceri harpreet 237, LDL 142. [id number] ABEBE GREENWOOD MD NEUROLOGY [facility] [address] [place] [address] 12/31/2018 11:17:32 12/31/2018 12:13:22 Restless legs syndrome 87860290 G25.81 She returns in follow-up for her severe restless leg syndrome. She does describe an uncomforta ble feeling in her legs which is relieved by moving her legs or walking. She's had symptoms ever since high school. No family history of restless legs. She does not have iron deficiency . Her ferritin level and iron studies are normal. Since I last saw her, she discontinu ed the Sinemet and a Neupro patches. Currently she takes Ropinirole 1 mg, 2 pills at noon, 2 pills at 5 and 2 pills at 10:00. She is currently taking 6 mg daily. I told her the maximum dose is 24 mg daily. Normally, her restless leg symptoms usually start at about noon. Recently, her restless leg symptoms have been starting at about 10:00 at night and they get worse at 2 or 3:00 in the morning. I recommende d increasing her Ropinirole at 10:00 and possibly a 2 or 3:00 in the morning. I emailed a prescripti on to increase her ropinirole to 8 or 9 pills daily. I told her she can play around with the ropinirole and hopefully she can find a dose that will help with her RLS. She has a very severe case of restless leg syndrome and has been on almost every medicine there is, including the 3 medicines above, as well as Mirapex and gabapentin . It might be worth another trial of Mirapex or gabapentin If her RLS continues to be bothersome . Bilateral carpal tunnel syndrome [id number] 0146304 G56.03 she complains of numbness and tingling in her hands. Positive Tinel sign over the right median nerve at the wrist. She occasional ly has numbness in her hands. Snoring 33653879 R06.83 she does have a history of snoring. She does not have a sleeping partner. We don't know if she stops breathing, etc. [id number] ABEBE GREENWOOD MD NEUROLOGY [facility] [address] [place] [address] 04/03/2019 09:20:18 04/03/2019 10:59:06 Restless legs syndrome 85671679 G25.81 She returns in follow-up for her severe restless leg syndrome. She does describe an uncomforta ble feeling in her legs which is relieved by moving her legs or walking. She's had symptoms ever since high school. No family history of restless legs. She does not have iron deficiency . Her ferritin level and iron studies are normal. She has been on Sinemet, Neupro, Mirapex, gabapentin and now she is on ropinirole . She thinks ropinirole works better than the other RLS meds. Currently she takes Ropinirole 1 mg, 2 pills at noon, 2 pills at 5 and 5 pills at 10:00. Her restless leg symptoms during the daytime are minimal but recently she been having more RLS symptoms starting about 7:00. She was interested in trying a higher dose of the ropinirole . The ropinirole helps, more than any other medicine for RLS. I recommende d increasing her ropinirole to 2 in the morning, 2 at 5 and 6 or 7 at night. I emailed a prescripti on to her pharmacy. She has a very severe case of restless leg syndrome and has been on almost every medicine there is, including the Sinemet, Neupro, Mirapex, gabapentin . She is now on now ropinirole . She thinks it is helped more than the other RLS meds. Will increase her dose because of increasing nocturnal symptoms. Bilateral carpal tunnel syndrome [id number] G56.03 She continues to have some numbness and tingling in her hands. Positive Tinel sign over the right median nerve at the wrist. She occasional ly has numbness in her hands. Snoring [id number] R06.83 She does have a history of snoring. She does not have a sleeping partner. We don't know if she stops breathing, etc. She has been told that she snores loudly at night. When people sleep in her room, they go into another room because she snores so loudly.. Denies awakening herself snoring or gasping for breath. She's never had a tonsillect toni. Her son is a loud snorer but there is no documented family history of sleep apnea. She does have hypertensi on as a comorbidit y. Her weight is stable. She does have moderate narrowing of the posterior oropharyng eal area on exam. She has moderately severe macrogloss ia. Soft palate is low lying. Neck circumfere nce normal 13.5. [place] sleepiness scale increased at 11. BMI is 31. I'm suspicious she has sleep apnea. I will arrange a polysomnog daylin and call her with results. [id number] ABEBE [facility]EN[facility]OD [facility] [address] [place] [address] 04/18/2019 13:08:48 04/18/2019 13:50:39 [id number] RICHIE YEUNG MD [place] [facility] [address] [place] [address] 03/17/2021 14:37:32 03/17/2021 16:14:11 Lesion of tongue [id number] K14.9 Cheilitis [id number] K13.0 Health Concerns Section Related Observation LastModified by Organization Detai ls LastModified Time None Recorded Concern Status LastModified by Organization Details LastModified Time None Recorded Advance Directives Directive None Recorded Payers Insurance Date Sequence Insurance Name Policy Number Policy Navarro Covered Member ID Navarro Member ID Guarantor Name 08/24/2023 2 [place] [id number] Nanette Mitchell [id number] Nanette Mitchell 08/24/2023 1 [place] Nanette Mitchell [id number] Nanette Mitchell 08/24/2023 1 [place]MED[place]PLACEMENT HMO) [id number] Nanette Jorge [id number] Nanette Mitchell Notes Date Note Type Note Provider Name and Address Organization Details Recorded Time 11/19/2018 text/html Patient is here for a 1 week follow up on lab work. Patient returns today to follow-up after evaluation. On 11/13/18, patient had a neurology evaluation of her restless legs by Dr. Dr. Abebe Greenwood, who instructed the patient to discontinue the Neupro, taper off the Sinemet, and taper up on the ropinirole dose. Patient was instructed to follow-up in 6-8 weeks. This report was reviewed and discussed with the patient today. She is treated for restless legs. She is monitoring her blood pressure. She uses NSAIDs as needed for arthritis pain. She reports benefit from Lexapro in treating her mood. On 11/12/18, her total iron was 81, ferritin 96, hemoglobin 14.0, hematocrit 42.0, MCV 84.7. On 11/12/18, her total cholesterol was 233, HDL 53, triglycerides 237, LDL 142. Options for treatment of her hyperlipidemia were reviewed and discussed with her today, but she declines medication at this time. Instead, she plans to watch her diet more strictly. On 11/12/18, her sedimentation rate was 33 (normal <30), but her rheumatoid factor, anti-CCP antibody, and MURALI were all normal. The patient's previous labs were reviewed and discussed with her today. Patient reports taking her medications as prescribed and denies any side effects from them. ZOHAIB BURGOS MD [address] [place] [address], [phone], [facility] 11/19/2018 11:12:48 12/31/2018 text/html Mrs. Mitchell returns in follow-up regarding her restless leg syndrome. I saw her in consultation on 11/13/18 and we discussed her restless legs. I felt her restless legs was very severe, she was taking Sinemet, Neupro and ropinirole.. The Neupro patches were expensive and I recommended stopping them. We discussed how Sinemet can cause augmentation and I recommended tapering off the Sinemet and discontinue the Neupro and increasing her ropinirole dose. She returns in follow-up today. Her chief complaint today is she been waking up at 2 or 3:00 in the morning and she needs to walk at that time. It sounds that she's having restless leg symptoms in the middle of the night. Since I last saw her, she discontinue the Neupro and Sinemet. She is taking ropinirole 1 mg, 2 pills at about noon, 2 pills at 5 and 3 pills at bedtime. Typically, her restless leg symptoms started at about 2 or 3:00 in the afternoon. The ropinirole does tend to make her a little sleepy, no nausea. Recently, she's been noticing increasing restless leg symptoms at about 10:00. When she wakes up at 2 or 3:00 in the morning she has trouble getting back to sleep and just walk because restless leg symptoms are bothersome. I called in a prescription for trazodone to try but she's not started it yet. Her recent iron studies and ferritin level were normal. She has a long history of restless leg syndrome. Her symptoms started during childhood. She recalls her mother telling her to quit kicking her legs around. Her symptoms have been gradually getting worse. Initially the restless legs occurred intermittently and mainly at night. The symptoms have been gradually been getting worse and starting earlier during the daytime. Her restless leg symptoms have been starting around 2 or 3:00 in the afternoon, sometimes at noon. No family history of restless legs. She has taken Mirapex in the past and it as somewhat helpful. She has been on gabapentin in the past and it did work well. Most recently, she was taking Sinemet 25/250, 1 pill at noon, 1 pill at supper and 2 pills at night and she using a Neupro patch 3 mg daily. She Recently stopped those 2 medications. She is . She is aware that she snores at night. She denies ever awakening herself snoring or waking herself gasping for breath. No family history of sleep apnea. ABEBE GREENWOOD MD [address] [place] [address], [phone], [facility] 12/31/2018 12:59:20 04/03/2019 text/html Mrs. Mitchell returns in follow-up regarding her restless leg syndrome. She was accompanied by a friend. She also has excessive daytime sleepiness and we discussed possible sleep apnea today. I last saw her on 12/31/18, and on that visit, she was taking ropinirole 6 mg daily. I recommended increasing her ropinirole dose. She had previously tried Mirapex, Sinemet, Neupro and gabapentin but they either didn't help or caused side effects. She was was having some numbness and tingling in her hands suggestive of carpal tunnel. She returns in follow-up today. During the last several months, overall she has been improving. Her restless legs, however, have been getting worse to the last 4 weeks. She is taking ropinirole 1 mg, 2 pills in the morning, 2 pills at noon and 5 pills at about 5:00 in the evening. Recently her restless leg symptoms been getting worse around 7:00. When she takes her medication as directed, she denies having any restless legs during the daytime, unless she is confined or sitting for a long period of time. No nausea with the ropinirole but does tend to make her sleepy. She also takes trazodone 50 mg, 4 pills at night which she thinks helps with her sleep. She is goes to bed at about 10:00. She falls asleep within 5 or 10 minutes. She goes to the bathroom one or 2 times at night, usually gets back to sleep quickly. She often wakes up at 3:30 in the morning and can't get back to sleep. She is gets out of bed at 6 or 6:30. She does not know how many hours of sleep she gets at night. She has excessive daytime sleepiness. She is . She is aware that she snores at night. She denies ever awakening herself snoring or waking herself gasping for breath. No family history of sleep apnea. Her son is a loud snorer but there is no documented family history of sleep apnea. She mentioned that she occasionally goes out of town with friends and they tell her she snores loudly and often they go sleep in a different room. I initially saw her in consultation on 11/13/18 and we discussed her restless legs. I felt her restless legs was very severe, she was taking Sinemet, Neupro and ropinirole.. The Neupro patches were expensive and I recommended stopping them. We discussed how Sinemet can cause augmentation and I recommended tapering off the Sinemet and discontinue the Neupro and increasing her ropinirole dose. Her iron studies and ferritin level were normal. She has a long history of restless leg syndrome. Her symptoms started during childhood. She recalls her mother telling her to quit kicking her legs around. Her symptoms have been gradually getting worse. Initially the restless legs occurred intermittently and mainly at night. The symptoms have been gradually been getting worse and starting earlier during the daytime.No family history of restless legs. ABEBE GREENWOOD [place], [address], [facility] 04/03/2019 10:33:01 03/17/2021 text/html comes in today for consultation at the request of Jayce Tavera for an evaluation of non healing tongue lesion. The lesion has been present on the left side of the tongue for 6 months. She describes the lesion as ulcerated. She though the lesion developed as a side effect of covid. She has treated the are with topical triamcinolone dental paste and magic mouthwash with no relief. It is painful if it hit her teeth or with certain foods. She drinks one coffee a day. She denies tobacco use. She takes clopidogrel because she had a stroke July 14, 2019. RICHIE YEUNG MD [address] [place] [address], [phone], [facility] 03/17/2021 17:52:31 OBGyn Episode No OBEpisode recorded.
--- OUTSIDE RECORDS SUMMARY | 2025-08-06 17:48 | XMS_ITS | Clinical Summary ---
Author Organization [facility] Address [address] [place] [address] Phone Care Team Providers Care Editorial Clerk Name Role Phone Rocio Tavera APRN Unavailable [phone] Valdemar CINTRON, Arsh Hinkle Unavailable [phone] Cruz Casiano D.O. Primary Care Provider [phone] Reason for Visit and Chief Complaint [Patient Encounter] Problems Includes: Problems addressed during this encounter and other active Problems All Visits Onset Date Resolved Date Provider Condition S tatus Neck Pain 10/02/2023 Flaquito Lala Active Last Documented On 4 1:20PM ; [facility] Soft Tissue Pain Lower Leg Right 06/11/2020 Varun in Manan Aldrich MD Active Last Documented On 0 10:28AM ; [facility], [facility] Plan of Treatment No Plan [...] On 4 1:20PM By Onur Rick ; [facility], [facility] methylPREDNISolone 4 MG Oral Tablet Therapy Pack 09/07/2023 Provider: Rocio Tavera APRN Diagnosis: Last Documented On 4 1:20PM By Onur Rick ; [facility], [facility] Cyclobenzaprine HCl 5 MG Oral [...] 1:20PM By Onur Rick ; [facility] Medications Administered Includes: Administered Medications [...] Relationship Effect dann Dates 1 - BCBS ([place]) Medicare [id number] Nanette Jorge Self 2 - FOR LIFE [id number] Nanette Jorge Self Clinical Notes Includes: Clinical Notes from this encounter No Clinical Notes Recorded
--- OUTSIDE RECORDS SUMMARY | 2025-08-06 17:48 | XMS_ITS | Clinical Summary ---
Author Organization [facility] Address [address] [place] [address] Care Team Providers Care Shingles Roofer Name Role Phone TaveraRocio marc PHILIP Primary Care Provider [phone] Allergies No known active allergies Medications carbidopa-levod [...] (10/03/2017): Added automatically from request for surgery [id number] Status post total right knee replacement 017 [...] history exists INFLUENZA VACCINE 04/10/2025 TDAP/TD VACCINES (2 - Td or Tdap) 04/15/2031 021, 07/04/2001 Medical Devices Implanted Type Area Hotel Supplies Salesperson Device Identifier Shelf Expiration Date Model / Serial / Lot Rods And Screws In Back S/P Lumbar Surgery Implant Bilateral Knee Replacements Implant Cmt Bone Endurance Smartset 40gm - [id number] Implanted:Qty: 1 on 03/01/2017 by Thad Li MD at [facility] Implant DEPUY 10/10/2018 [id number] / / [id number] Cmt Bone Endurance Smartset 40gm - [id number] Implanted:Qty: 1 on 03/01/2017 by Thad Li MD at [facility] Implant DEPUY 11/07/2018 [id number] / / [id number] Base Tib Attune Cmt Rp Sz3 - [id number] Implanted:Qty: 1 on 03/01/2017 by Thad Li MD at [facility] Implant DEPUY 12/08/2026 [id number] Comp Fem Attune Cmt Cr Nrw Sz5 Rt - [id number] Implanted:Qty: 1 on 03/01/2017 by Thad Li MD at [facility] Implant DEPUY 10/10/2026 [id number] Insrt Tib Attune Rp Cr Sz5 5mm - [id number] Implanted:Qty: 1 on 03/01/2017 by Thad Li MD at [facility] Implant DEPUY 10/10/2021 [id number] Comp Pat Attune Cmt Medl Gena 32mm - [id number] Implanted:Qty: 1 on 03/01/2017 by Thad Li MD at [facility] Implant DEPUY 10/10/2021 [id number] Totl Kn Attune Depuy [id number] - [id number] Implanted:Qty: 1 on 03/01/2017 by Thad Li MD at [facility] Implant DEPUY [facility] [id number] / / Procedures Procedure Name Priority Date/Time Associated Diagnosis Comments HEMOGLOBIN A1C Urgent 07/07/2024 7:34 AM EDT from Last 3 Months or Most Recently Relevant to Health Maintenance Results * (ABNORMAL) Hemoglobin A1c (07/07/2024 7:34 AM EDT) Hemoglobin A1C 8.60(H) 4.80 - 5.60 % 07/07/2024 9:34 AM EDT [facility] Blood Venipuncture / Unknown 07/07/2024 7:34 AM EDT 07/07/2024 8:35 AM EDT Narrative [facility] - 07/07/2024 9:34 AM EDT Hemoglobin A1C Ranges: Increased Risk for Diabetes 5.7% to 6.4% Diabetes >= 6.5% Diabetic Goal < 7.0% Sandy Mcdaniel OPTIMIZATION CONSULTANT LAB BLOOD ORDERABLES Final R esult [facility]
[address] [place] [address], from Last 3 Months or Most Recently Relevant to Health Maintenance Insurance [address] [place] [address] MEDICAID [place] Member Subscriber Plan / Payer (Ef fective 2020-Present) Name:Nanette Jorge Relation to Subscriber:Self Name:Nanette Jorge Payer ID:[id number] Group ID:Not on file Type:Not on file Address: [address] [facility] MEDICARE ADVANTAGE O Advance Directives * No [...] Of Support Discussed With: Patient Care Teams Shingles Roofer Relationship Specialty Start Date End Date Rocio Tavera APRN [address] [place] [address] PCP - General Nurse Practitioner 01/04/21
--- OUTSIDE RECORDS SUMMARY | 2025-08-06 17:48 | XMS_ITS | Clinical Summary ---
Author Organization [facility] Address [address] [place] [address] Phone Care Team Providers Care Machinery Rigger Name Role Phone Rocio Tavera APRN Unavailable [phone] Valdemar CINTRON, Arsh Hinkle Unavailable [phone] Cruz Casiano D.O. Primary Care Provider [phone] Reason for Visit and Chief Complaint BRACE FITTING Problems Includes: Problems addressed during this encounter and other active Problems All Visits Onset Date Resolved Date Provider Condition S tatus Neck Pain 10/02/2023 Flaquito Lala Active Last Documented On 4 1:20PM ; [facility] Soft Tissue Pain Lower Leg Right 06/11/2020 Varun in Manan Aldrich MD Active Last Documented On 0 10:28AM ; [facility] Plan of Treatment No Plan of [...] On 4 1:20PM By Onur Rick ; [facility] methylPREDNISolone 4 MG Oral Tablet Therapy Pack 09/07/2023 Provider: Rocio Tavera APRN Diagnosis: Last Documented On 4 1:20PM By Onur Rick ; [facility] Cyclobenzaprine HCl 5 MG Oral Tablet [...] 1:20PM By Onur Rick ; [facility] Medications Administered Includes: Administered Medications from [...] Relationship Effect dann Dates 1 - BCBS ([place]) Medicare [id number] Nanette Jorge Self 2 - FOR LIFE [id number] Nanette Jorge Self Clinical Notes Includes: Clinical Notes from this encounter No Clinical Notes Recorded
--- OUTSIDE RECORDS SUMMARY | 2025-08-06 17:48 | XMS_ITS | Clinical Summary ---
Author Organization [facility] Address [address] [place] [address] Phone Care Team Providers Care Wheel Truer Name Role Phone Rocio Tavera APRN Unavailable [phone] Valdemar CINTRON, Arsh Hinkle Unavailable [phone] Cruz Casiano D.O. Primary Care Provider [phone] Reason for Visit and Chief Complaint [Patient Encounter] Problems Includes: Problems addressed during this encounter and other active Problems All Visits Onset Date Resolved Date Provider Condition S tatus Neck Pain 10/02/2023 Flaquito Lala Active Last Documented On 4 1:20PM ; [facility] Soft Tissue Pain Lower Leg Right 06/11/2020 Varun lucille Aldrich MD Active Last Documented On 0 10:28AM ; [facility] Plan of Treatment No Plan of [...] Take 1/2 - 1 tablet daily Pharmacy: [facility] - [address] , [facility], [address] - Last Documented On 0 9:11AM By Kimberly Hallman [facility] Current Medications (continue as prescribed) [...] Relationship Effect dann Dates 1 - BCBS ([place]) Medicare [id number] Nanette R Luisito Self 2 - FOR LIFE [id number] Nanette R Lusiito Self Clinical Notes Includes: Clinical Notes from this encounter No Clinical Notes Recorded
--- OUTSIDE RECORDS SUMMARY | 2025-08-06 17:48 | XMS_ITS | Clinical Summary ---
Author Organization [facility] , [facility] Address [address] [facility] [place] [address] Phone Care Team Providers Care Molder Machine Tender Name Role Phone Tavera DIRECTOR OF STUDENT FINANCIAL SERVICESRocio Gomez Unavailable [phone] Valdemar CINTRON, Arsh Hinkle Unavailable [phone] Cruz Casiano D.O. Primary Care Provider [phone] Reason for Referral Date Encounter Description Provider [...] Active Last Documented On 0 10:28AM ; [facility] Past Visits Onset Date Resolved Date Provider Condition Status Neck Pain 10/02/2023 Flaquito Lala Active Last Documented On 4 1:20PM ; [facility] Plan of Treatment Physical exam: skin intact [...] - Last Documented On 06/15/2020 8:37AM ; [facility] Assessments Includes: Assessments from this encounter [...] - Last Documented On 06/15/2020 8:37AM ; [facility] Medical Equipment - Implanted Devices Includes: Current Devices No Medical Equipment Recorded Medications Includes: Medications discussed during this encounter and other current Medications Current Medications (continue as prescribed) Gabapentin 300 MG Oral Capsule 09/07/2023 Provider: Rocio Tavera APRN Diagnosis: Last Documented On 4 1:20PM By Onur Rick ; [facility], [facility] methylPREDNISolone 4 MG Oral Tablet Therapy Pack 09/07/2023 Provider: Rocio Tavera APRN Diagnosis: Last Documented On 4 1:20PM By Onur Rick ; [facility] Cyclobenzaprine HCl 5 MG Oral Tablet 08/25/2023 Prov ider: Neda Broderick Diagnosis: Last Documented On 4 1:20PM By Onur Rick ; [facility] predniSONE 10 MG (21) Oral Tablet Therapy Pack 023 Provider: Neda Broderick Diagnosis: Last Documented On 4 1:20PM By Onur Rick ; [facility] diazePAM 2 MG Oral Tablet 08/23/2023 Provider: HAVEN SALGADO MD Diagnosis: Last Documented On 4 1:20PM By Onur Rick ; [facility] Past Medications on file Meloxicam 15 MG Oral Tablet 06/21/2020 - 09/19/2020 Pr ovider: Arsh Aldrich MD Diagnosis: Take 1/2 - 1 tablet daily Last Documented On 0 9:11AM By Kimberly Myrick ; [facility] Medications Administered Includes: Administered Medications from [...] 06/11/2020 Last Documented On 0 8:37AM ; [facility], [facility] No caffeine use 06/11/2020 Last Documented On 0 8:37AM ; [facility], [facility] No recent change in diet 06/11/2020 Last Documented On 0 8:37AM ; [facility], [facility] Not a current smoker. 06/11/2020 Last Documented On 0 8:37AM ; [facility], [facility] Not exercising regularly 06/11/2020 Last Documented On 0 8:37AM ; [facility], [facility] Not using alcohol 06/11/2020 Last Documented On 0 8:37AM ; [facility] Not using drugs 06/11/2020 Last Documented On 0 8:37AM ; [facility] Smoking Status Unknown Procedures and Surgical History Includes: Procedures from this encounter Procedures Code Diagnosis Performing Provider Service L ocation Service Date use of tobacco assessment performed 1000F Last Documented On 0 10:46AM ; [facility], [facility] referral to physician Last Documented On 0 10:46AM ; [facility] Pt received screening for fall risk G8270 Last Documented On 0 10:46AM ; [facility] Medical History Includes: Medical History addressed during this encounter Description Last Updated Arthritis 06/11/2020 Last Documented On 0 8:37AM ; [facility] History of diabetes mellitus 06/11/2020 Last Documented On 0 8:37AM ; [facility] History of Heart Attack / Stroke 020 Last Documented On 0 8:37AM ; [facility] No recent immunization for flu 0 Last Documented On 0 8:37AM ; [facility] No recent immunization for pneumococcal pneumonia 06/11/2020 Last Documented On 0 8:37AM ; [facility] Family History Includes: Family History addressed during this encounter Description Last Updated No significant family history 06/11/2020 Last Documented On 0 8:37AM ; [facility] Review of Systems Includes: Review of Systems [...] Time Diagnosis SECOND OPINION Arsh Aldrich MD [facility] 06/11/20 20 10:34AM 11:35AM Insurance Includes: Active Insurance Policies Plan Name Member ID Group # Subscriber Relationship Effect dann Dates 1 - BCBS ([place]) Medicare [id number] Nanette Figueroa 2 - FOR LIFE [id number] Nanette Figueroa Clinical Notes Includes: Clinical Notes from this encounter No Clinical Notes Recorded
--- OUTSIDE RECORDS SUMMARY | 2025-08-06 17:48 | XMS_ITS | Referral Summary ---
Author Organization [employer] ([place], [place], [place], [place], [place]) Address [address] [place] [address] Care Team Providers Care Balance Wheel Facer Name Role Phone Rocio Tavera APRN Primary Care Provider [phone] Rocio Tavera APRN Unavailable [phone] Allergies No known active allergies Medications Hospital, [...] Date Ernie rded Speak language other than Serbian at home Not on file 09/20/2023 Want [...] of Treatment Not on file Insurance #[address] [facility] Care Teams Balance Wheel Facer Relationship Specialty Start Date End Date Rocio Tavera APRN PCP - General Family Medicine 11/29/22 Rocio Tavera APRN Referring Physician Family Medicine 11/29/22
--- OUTSIDE RECORDS SUMMARY | 2025-08-06 17:48 | XMS_ITS ---
Author Organization [facility] , [facility] Address [address] [place] [address] Phone Care Team Providers Care Wwe Wrestler Name Role Phone Rocio Tavera APRN Unavailable [phone] Valdemar CINTRON, Arsh Hinkle Unavailable [phone] Cruz Casiano D.O. Primary Care Provider [phone] Reason for Referral Date Encounter Description Provider Reason for Referral 10/02/23 Physician Specified Flaquito Somers PA-C Referral To Physician 06/11/20 SECOND OPINION Arsh Aldrich MD Re ferral To Physician Problems Includes: Active, inactive, and resolved Problems All Visits Onset Date Resolved Date Provider Condition S tatus Neck Pain 10/02/2023 Flaquito Lala Active Last Documented On 4 1:20PM ; [facility], [facility] Soft Tissue Pain Lower Leg Right 06/11/2020 Varun in Manan Aldrich MD Active Last Documented On 0 10:28AM ; [facility], [facility] Plan of Treatment No Plan of [...] On 4 1:20PM By Onur Rick ; [facility], [facility] methylPREDNISolone 4 MG Oral Tablet Therapy [...] Administered Medications Recorded Results Includes: Results from 08/06/2024 through 08/06/2025 No Results Recorded For Specified Dates History [...] 06/11/2020 Last Documented On 0 8:37AM ; [facility] Not using alcohol 06/11/2020 Last Documented On 0 8:37AM ; [facility] Not using drugs 06/11/2020 Last Documented On 0 8:37AM ; [facility], [facility] Smoking Status Unknown Procedures and Surgical History Surgical History Last Updated History of hysterectomy 10/02/2023 Last Documented On 4 9:49AM ; [facility], [facility] Medical History Includes: Medical History in patient's chart Description Last Updated History of Stroke 10/02/2023 Last Documented On 4 9:49AM ; [facility], [facility] Arthritis 06/11/2020 Last Documented On 0 8:37AM ; [facility], [facility] History of diabetes mellitus 06/11/2020 Last Documented On 0 8:37AM ; [facility] History of Heart Attack / Stroke 020 Last Documented On 0 8:37AM ; [facility] No recent immunization for flu 0 Last Documented On 0 8:37AM ; [facility] No recent immunization for pneumococcal pneumonia 06/11/2020 Last Documented On 0 8:37AM ; [facility], [facility] Family History Includes: Family History in patient's chart Description Last Updated No significant family history 06/11/2020 Last Documented On 0 8:37AM ; [facility] Review of Systems Review of Systems [...] Relationship Effect dann Dates 1 - [employer] ([place] Medicare [id number] Nanette Kentll Self 2 - FOR LIFE [id number] Nanette Baires Luisito Self Clinical Notes Includes: Signed Clinical Notes starting from 08/24/2022 No Clinical Notes Recorded
--- OUTSIDE RECORDS SUMMARY | 2025-08-06 17:48 | XMS_ITS ---
Care Plan - [facility], [facility] Created on: August 06, 2025 Luisito Nanette R : 1940 Sex: Female Author Organization [facility] , [facility] Address [address] [place] [address] Phone Care Team Providers Care Head Cashier Name Role Phone Rocio Tavera APRN Unavailable [phone] Valdemar CINTRON, Arsh Hinkle Unavailable [phone] Cruz Casiano D.O. Primary Care Provider [phone]
--- NOTE | 2025-08-07 08:15 | PC.NURSE ---
Urine culture forwarded to hospitalist.
--- NOTE | 2025-08-10 10:32 | SW/DCPLANNER ---
Spoke with patient on the phone. patient stated that she is doing ok. Patient stated that she does know that she needs to see her DR but they have no called with the appointment. Patient stated that she was able to hand picker her new medicine. patient stated that she has no concerns or questions at this time. Eliza Glover
== END 2025-08-06 15:50 | disposition home or self-care (01) | DRG 322 ==
LOC: 2ND 19:45 → ER 08-06 10:15 → 2ND 08-06 11:26
PROVIDERS: Internal Medicine; Nurse Practitioner Acute Care; Student in an Organized Health Care Education/Training Program; Admitting Provider Internal Medicine Adolescent Medicine; PCP Nurse Practitioner Family; Visit Provider Internal Medicine Adolescent Medicine
PROC: 4A023N7 Measurement of Cardiac Sampling and Pressure, Left Heart, Percutaneous Approach (ICD-10-PCS; CPT 93452; principal; 2025-08-06 10:20)
DX: I21.4 Non-ST elevation (NSTEMI) myocardial infarction (principal); N39.0 Urinary tract infection, site not specified; I69.354 Hemiplegia and hemiparesis following cerebral infarction affecting left non-dominant side; I11.0 Hypertensive heart disease with heart failure; I50.9 Heart failure, unspecified; E11.9 Type 2 diabetes mellitus without complications; G25.81 Restless legs syndrome; E03.8 Other specified hypothyroidism; I25.10 Atherosclerotic heart disease of native coronary artery without angina pectoris; I25.83 Coronary atherosclerosis due to lipid rich plaque; E83.42 Hypomagnesemia; E87.6 Hypokalemia; R79.89 Other specified abnormal findings of blood chemistry; Z79.890 Hormone replacement therapy; Z79.84 Long term (current) use of oral hypoglycemic drugs; Z79.899 Other long term (current) drug therapy
CPT/HCPCS: 0223U; 36415; 70450; 71045; 71275; 80048; 80053; 80061; 80307; 81001; 82803; 82962; 83036; 83690; 83735; 83880; 84439; 84443; 84484; 85025; 85347; 85378; 87086; 87088; 87186; 87631; 93005; 99152; 99153; 99211; C1725; C1769; C1874; C1887; G0378; J0696; J1200; J1644; J1650; J2003; J2250; J3010; J3475; J7040; Q9967